=== PATIENT | male | born 1970 | race Asian ===

== ENCOUNTER 2020-08-12 15:49 | Inpatient (IN) | payer BC, SELFPAY ==
--- NOTE | ~2020-08-12 | XR_ITS ---
EXAMINATION: XR chest 1V portable EXAM DATE: 08/21/2020 06:11 INDICATION: COVID-19 pneumonia . TECHNIQUE: Portable AP frontal chest x-ray was obtained. Comparison is made to prior examination from 08/20, 08/19. FINDINGS: Extensive bilateral acute airspace disease, probably ARDS, edema and/or infection. No pneum othorax or pleural effusion. Mild cardiomegaly. Relatively low lung volume. There is no significant i nterval change. IMPRESSION: Extensive bilateral acute airspace disease unchanged. Reviewed, dictated and finalized at location A. CTOR OF STRATEGIC INITIATIVES
--- NOTE | ~2020-08-12 | XR_ITS ---
EXAMINATION: XR chest 1V portable EXAM DATE: 08/22/2020 06:35 INDICATION: COVID-19 pneumonia . TECHNIQUE: Portable AP frontal chest x-ray was obtained. Comparison is made to prior examination from 08/21, 08/20, 08/19. FINDINGS: Extensive bilateral acute airspace disease, probably ARDS, edema and/or infection. No pneum othorax or pleural effusion. Mild cardiomegaly. Relatively low lung volume. Comparing to last several days, suspect mild interval progression in the acute airspace disease. IMPRESSION: Extensive bilateral acute airspace disease with mild interval progression suspected. Reviewed, dictated and finalized at location A. MILL OPERATOR IMPRESSION: Extensive bilateral acute airspace disease with mild interval progr ession suspected.
--- NOTE | ~2020-08-12 | XR_ITS ---
EXAMINATION: XR chest 1V portable INDICATION: COVID 19 PNEUMONIA TECHNIQUE: Portable AP chest at 0703 hours COMPARISON: 08/22/2020 FINDINGS: Diffuse interstitial and airspace opacities persist with slight improvement. The lung volum es are low. There is no pleural effusion or pneumothorax. The cardiomediastinal silhouette is normal. IMPRESSION: 1. Diffuse lung disease with interval improvement, consistent with pneumonia and/or pulmonary edema a nd/or acute respiratory distress syndrome (ARDS). Reviewed, dictated and finalized at location A. H PACKER IMPRESSION: 1. Diffuse lung disease with interval improvement, consistent with pneumonia an d/or pulmonary edema and/or acute respiratory distress syndrome (ARDS).
--- NOTE | ~2020-08-12 | XR_ITS ---
EXAMINATION: XR chest 1V portable DATE: 08/12/2020 16:46 INDICATION: Shortness of breath and fever. TECHNIQUE: A single frontal view of the chest was obtained. COMPARISON: None. FINDINGS: There are patchy airspace opacities in all lung zones bilaterally. No pleural effusion or p neumothorax. The heart size is normal. IMPRESSION: 1. Diffuse lung disease, consistent with pneumonia. Reviewed, dictated and finalized at location A. L PRESS OPERATOR
--- NOTE | ~2020-08-12 | XR_ITS ---
EXAMINATION: XR chest 1V portable EXAM DATE: 08/19/2020 06:13 INDICATION: COVID-19 pneumonia . TECHNIQUE: Portable AP frontal chest x-ray was obtained. Comparison is made to prior examination from 08/18/2020, 08/17/2020. FINDINGS: Extensive bilateral acute airspace disease, probably ARDS, edema and/or infection. No pneum othorax or pleural effusion. Mild cardiomegaly. Relatively low lung volume. There is no significant i nterval change. IMPRESSION: 1. Extensive bilateral acute airspace disease unchanged. Reviewed, dictated and finalized at location A. GER REPORT
--- NOTE | ~2020-08-12 | XR_ITS ---
EXAMINATION: XR abdomen NG/feed tube insert DATE: 08/25/2020 12:10 INDICATION: Orogastric tube placement. TECHNIQUE: A supine view of the abdomen was obtained. COMPARISON: None. FINDINGS: The lower abdomen is excluded. There are no dilated loops of bowel. The nasogastric tube ti p is in the stomach. IMPRESSION: 1. Nasogastric tube tip in the stomach. Reviewed, dictated and finalized at location A. ABLE PINCH RIVETER
--- NOTE | ~2020-08-12 | XR_ITS ---
EXAMINATION: XR chest ET placement DATE: 08/25/2020 12:10 INDICATION: Intubation. COVID-19 pneumonia. TECHNIQUE: A single frontal view of the chest was obtained. COMPARISON: Chest single view at 5:06 AM FINDINGS: There are airspace and interstitial opacities throughout the lungs bilaterally. No pleural effusion or pneumothorax. The heart size is normal. The endotracheal tube tip is 3.0 cm above the car jennifer. A right upper extremity peripherally inserted central venous catheter (PICC) is seen with tip at the superior cavoatrial junction. The nasogastric tube tip is in the stomach. IMPRESSION: 1. Stable diffuse lung disease, consistent with pneumonia versus pulmonary edema versus acute respira tory distress syndrome (ARDS). Reviewed, dictated and finalized at location A. M MAKER IMPRESSION: 1. Stable diffuse lung disease, consistent with pneumonia versus pulmonary maxime a versus acute respiratory distress syndrome (ARDS).
--- NOTE | ~2020-08-12 | XR_ITS ---
EXAMINATION: XR chest 1V portable DATE: 08/27/2020 06:07 INDICATION: Respiratory failure. TECHNIQUE: A single frontal view of the chest was obtained. COMPARISON: Chest single view 08/26/2020 FINDINGS: There are interstitial airspace opacities throughout the lungs bilaterally. No pleural effu marcelino or pneumothorax. The heart size is normal. Pneumomediastinum is noted. The endotracheal tube tip is 3.6 cm above the jos. A right upper extremity peripherally inserted central venous catheter (P ICC) is seen with tip in the superior vena cava. The nasogastric tube tip is beyond the inferior navjot in of the radiograph, but at least to the stomach. There is new soft tissue gas in the bilateral ches t wall and neck. IMPRESSION: 1. New pneumomediastinum. New soft tissue gas in the bilateral chest wall and neck. 2. Stable diffuse lung disease, consistent with pneumonia versus pulmonary edema versus acute respira tory distress syndrome (ARDS). Reviewed, dictated and finalized at location A. MAINTENANCE TECHNICIAN IMPRESSION: 1. New pneumomediastinum. New soft tissue gas in the bilateral chest wall and n salty. 2. Stable diffuse lung disease, consistent with pneumonia versus pulmonary maxime a versus acute respiratory distress syndrome (ARDS).
--- NOTE | ~2020-08-12 | XR_ITS ---
EXAMINATION: XR chest 1V portable DATE: 08/17/2020 06:22 INDICATION: Respiratory failure. TECHNIQUE: A single frontal view of the chest was obtained. COMPARISON: Chest single view 08/16/2020, chest CT 08/14/2020 FINDINGS: There are airspace opacities in all lung zones bilaterally. No pleural effusion or pneumoth orax. The heart size is normal. IMPRESSION: 1. Worsened diffuse lung disease, consistent with pneumonia versus pulmonary edema versus acute respi ratory distress syndrome (ARDS). Reviewed, dictated and finalized at location A. RIALS AND CORROSION ENGINEER IMPRESSION: 1. Worsened diffuse lung disease, consistent with pneumonia versus pulmonary ed ana versus acute respiratory distress syndrome (ARDS).
--- NOTE | ~2020-08-12 | XR_ITS ---
EXAMINATION: XR chest 1V portable INDICATION: Shortness of breath TECHNIQUE: Portable AP chest at 0534 hours COMPARISON: 08/23/2020 FINDINGS: Diffuse opacities persist throughout all lung zones with slight worsening. There is no pleu ral effusion or pneumothorax. The cardiomediastinal silhouette is stable. The lung volumes are low. IMPRESSION: 1. Diffuse lung disease with interval worsening, consistent with pneumonia and/or pulmonary edema and /or acute respiratory distress syndrome (ARDS). Reviewed, dictated and finalized at location A. T CLERK IMPRESSION: 1. Diffuse lung disease with interval worsening, consistent with pneumonia and/ or pulmonary edema and/or acute respiratory distress syndrome (ARDS).
--- NOTE | ~2020-08-12 | XR_ITS ---
XR chest 1V portable DATE: 08/26/2020 11:06 INDICATION: Status change; increased oxygen requirements. Respiratory failure. TECHNIQUE: Portable AP chest on 08/26/2020 at 1026 hours COMPARISON: 08/26/2020 portable AP chest at 0446 hours FINDINGS: ET tube in satisfactory position approximately 3.8 cm above jos. NG tube in stomach. Right upper extremity PIC catheter tip overlies superior vena cava near superior cavoatrial junction. There are diffuse interstitial/ground glass infiltrates throughout both lungs, relatively unchanged s corona 0446 hours today. There may be slight right pleural effusion. No pneumothorax. IMPRESSION: No significant change of diffuse bilateral pulmonary interstitial infiltrates since earli er today Reviewed, dictated and finalized at location B. NIC SECTION TECHNICAL LEAD IMPRESSION: No significant change of diffuse bilateral pulmonary interstitial i nfiltrates since earlier today
--- NOTE | ~2020-08-12 | XR_ITS ---
EXAMINATION: XR chest 1V portable DATE: 08/26/2020 05:35 INDICATION: COVID-19 pneumonia. TECHNIQUE: A single frontal view of the chest was obtained. COMPARISON: Chest single view 08/25/2020 FINDINGS: The patient is rotated to his left. There are airspace and interstitial opacities throughou t the lungs bilaterally. No pleural effusion or pneumothorax. The heart size is normal. The endotrach eal tube tip is 3.7 cm above the jos. The nasogastric tube tip is in the stomach. A right upper ex tremity peripherally inserted central venous catheter (PICC) is seen with tip at superior cavoatrial junction. IMPRESSION: 1. Worsened diffuse lung disease, consistent with pneumonia versus pulmonary edema versus acute respi ratory distress syndrome (ARDS). Reviewed, dictated and finalized at location A. NEYMAN PIPEFITTER IMPRESSION: 1. Worsened diffuse lung disease, consistent with pneumonia versus pulmonary ed ana versus acute respiratory distress syndrome (ARDS).
--- NOTE | ~2020-08-12 | XR_ITS ---
EXAMINATION: XR chest PICC line INDICATION: PICC insertion TECHNIQUE: Portable AP chest at 1158 hours COMPARISON: 0534 hours FINDINGS: A right upper extremity PICC has been inserted which ends with its tip in the distal superi or vena cava. The guidewire remains within the pelvic. Diffuse opacities persist throughout all lung zones with slight interval improvement. The cardiomediastinal silhouette is stable. The lung volumes are low. There is no pleural effusion or pneumothorax. IMPRESSION: 1. Right upper extremity PICC ending with its tip in the distal superior vena cava. 2. Diffuse lung disease with interval improvement, consistent with pneumonia and/or pulmonary edema a nd/or acute respiratory distress syndrome (ARDS). Reviewed, dictated and finalized at location A. SHOP MANAGER IMPRESSION: 1. Right upper extremity PICC ending with its tip in the distal superior vena c gabby. 2. Diffuse lung disease with interval improvement, consistent with pneumonia an d/or pulmonary edema and/or acute respiratory distress syndrome (ARDS).
--- NOTE | ~2020-08-12 | XR_ITS ---
EXAMINATION: XR chest 1V portable DATE: 08/25/2020 05:37 INDICATION: COVID-19 pneumonia. TECHNIQUE: A single frontal view of the chest was obtained. COMPARISON: Chest single view 08/24/2020, chest CT 08/14/2020 FINDINGS: The lung volumes are small. There are interstitial and airspace opacities throughout the wilfredo ngs bilaterally. No pleural effusion or pneumothorax. The heart size is normal. A right upper extremi ty peripherally inserted central venous catheter (PICC) is seen with tip at the superior cavoatrial j unction. IMPRESSION: 1. Stable diffuse lung disease, consistent with pneumonia versus pulmonary edema versus acute respira tory distress syndrome (ARDS). Reviewed, dictated and finalized at location A. SUPERVISOR IMPRESSION: 1. Stable diffuse lung disease, consistent with pneumonia versus pulmonary maxime a versus acute respiratory distress syndrome (ARDS).
--- NOTE | ~2020-08-12 | XR_ITS ---
EXAMINATION: XR chest 1V portable EXAM DATE: 08/20/2020 06:23 INDICATION: COVID-19 pneumonia . TECHNIQUE: Portable AP frontal chest x-ray was obtained. Comparison is made to prior examination from 08/19, 08/18/2020, 08/17/2020. FINDINGS: Extensive bilateral acute airspace disease, probably ARDS, edema and/or infection. No pneum othorax or pleural effusion. Mild cardiomegaly. Relatively low lung volume. There is no significant i nterval change. IMPRESSION: Extensive bilateral acute airspace disease unchanged. Reviewed, dictated and finalized at location A. LE TOE SNIPPING MACHINE OPERATOR
--- NOTE | ~2020-08-12 | XR_ITS ---
EXAMINATION: XR chest 1V portable INDICATION: Respiratory failure TECHNIQUE: Portable AP chest at 0543 hours COMPARISON: 08/12/2020 FINDINGS: There are diffuse interstitial and airspace opacities with interval worsening. No pleural e ffusion or pneumothorax is identified. The cardiomediastinal silhouette is normal. IMPRESSION: 1. Diffuse lung disease with interval worsening, consistent with pneumonia and/or pulmonary edema and /or acute respiratory distress syndrome (ARDS). Reviewed, dictated and finalized at location A. ICER MACHINE IMPRESSION: 1. Diffuse lung disease with interval worsening, consistent with pneumonia and/ or pulmonary edema and/or acute respiratory distress syndrome (ARDS).
--- NOTE | ~2020-08-12 | CT_ITS ---
EXAMINATION: CTA chest PE protocol DATE: 08/14/2020 04:59 INDICATION: Shortness of breath TECHNIQUE: Computed tomography angiography (CTA) of the chest was performed with 100 mL Omnipaque-350 intravenous contrast timed to evaluate the pulmonary arteries. Coronal maximum intensity projection 3D-reconstructions were created by the technologist. The dose-length product (DLP) was 609.21 mGy-cm. Automated exposure control and iterative reconstruction technique were employed. COMPARISON: None. FINDINGS: The pulmonary arteries are well-opacified. No pulmonary embolism is identified. There are d iffuse groundglass and airspace opacities throughout all lung zones. No pleural effusion or pneumotho rax is identified. The heart size is normal. There is mild mediastinal lymphadenopathy. There is mild thoracic spondylosis. IMPRESSION: 1. No pulmonary embolism. 2. Commonly reported imaging features of COVID-19 pneumonia are present. 3. Mild mediastinal lymphade nopathy, likely reactive. Reviewed, dictated and finalized at location A. D BELT SANDER IMPRESSION: 1. No pulmonary embolism. 2. Commonly reported imaging features of COVID-19 pneumonia are present. 3. Mil d mediastinal lymphadenopathy, likely reactive.
--- NOTE | ~2020-08-12 | XR_ITS ---
EXAMINATION: XR chest 1V portable EXAM DATE: 08/18/2020 06:20 INDICATION: Resp Failure. TECHNIQUE: Portable AP frontal chest x-ray was obtained. Comparison is made to prior examination from 08/17/2020. FINDINGS: Extensive bilateral acute airspace disease, probably ARDS, edema and/or pneumonia. No pneum othorax or pleural effusion. Mild cardiomegaly. Relatively low lung volume. IMPRESSION: 1. Extensive bilateral acute airspace disease unchanged. Reviewed, dictated and finalized at location A. AL CONTROL AUGER PRESS OPERATOR
[2020-08-12 16:12] VITALS: BP 170/89; PULSE 93; RESP 22; TEMP 38.3; O2SAT 91
--- NOTE | 2020-08-12 16:12 | ECG_ITS ---
Measurements Intervals [place] Rate: 87 P: 41 TN: 145 QRS: 38 QRSD: 94 T: 12 QT: 257 QTc: 310 Interpretive Statements SINUS RHYTHM MINIMAL Q WAVES- INFERIOR LEADS NONSPECIFIC T-WAVE ABNORMALITY- INFERIOR LEADS BORDERLINE ECG Electronically Signed On 08-12-2020 16:28:15 SEASONAL [place] BUNDLER by José Hodge D.O.
--- NOTE | 2020-08-12 16:30 | ED.SOB ---
HPI - SOB/Dyspnea General Chief Complaint: Shortness of Breath/Dyspnea Stated Complaint: diff breathing, fever Time Seen by Provider: 08/12/20 16:20 Source: patient History of Present Illness HPI Narrative: 50-year-old presents to emergency department for multiple complaints for the last 4 to 5 days. Patient states he has been feeling short of breath, fever/chills, body aches, chest pain with coughing for this amount of time. He has never had this in the past before. No known exposure to coronavirus. He took some ibuprofen and Tylenol to help with the pain. Related Data Home Medications Medication Instructions Recorded Confirmed losartan 100 mg PO DAILY 08/12/20 08/12/20 Allergies Allergy/AdvReac Type Severity Reaction Status Date / Time No Known Allergies Allergy Verified 08/12/20 16:15 Review of Systems Review of Systems: Narrative: CONSTITUTIONAL: Denies fever, chills, or sweats. EYES: Denies visual changes, redness, or discharge. ENT: Denies rhinorrhea, congestion, sore throat, or otalgia. CARDIOVASCULAR: Denies chest pain, palpitations, or edema. RESPIRATORY: Denies cough or dyspnea. GASTROINTESTINAL: Denies abdominal pain, nausea, vomiting, or diarrhea. GENITOURINARY: Denies dysuria or hematuria. SKIN: Denies rash or itching. MUSCULOSKELETAL: Denies back pain, joint pain, or myalgia. NEUROLOGIC: Denies headache, numbness, dizziness, or weakness. PSYCHIATRIC: Denies anxiety or depression. All systems reviewed & are unremarkable except as noted in HPI and below (ROS) PMFSH Family History Family History (Updated 08/12/20 @ 20:31 by Clive Banks RN) Father Hypertension Social History Social History Smoking status: Never smoker Alcohol intake: never Substance use: never Gender identity (if verbalized by the patient): Male Spiritual care concerns: No Exam Narrative: Exam Narrative: GENERAL: Well-appearing, well-nourished, mild distress HEAD: Normocephalic, atraumatic. EYES: PERRLA and EOMI. ENT: Nares clear, no rhinorrhea or epistaxis. Mucous membranes moist. NECK: Supple. CHEST: Decreased breath sounds bilaterally. HEART: Regular rate and rhythm. No murmur heard. Normal peripheral pulses. ABDOMEN: Soft, nontender, nondistended, normal active bowel sounds. EXTREMITIES: Normal range of motion. No edema. SKIN: Warm, dry, no rash. NEURO: No focal deficits. Alert and oriented x3. PSYCH: Normal mood and affect. Course Reevaluation(s) Reevaluation #1: 1715 -reevaluated patient, breathing improved after oxygen administration. 1725 - discussed case with Hiliary PA, accepts admission Vital Signs Vital signs: Vital Signs Temperature 38.3 C H 08/12/20 16:12 Pulse Rate 93 08/12/20 16:12 Respiratory Rate 22 H 08/12/20 16:12 Blood Pressure 170/89 H 08/12/20 16:12 Pulse Oximetry 91 08/12/20 16:12 Temperature 38.3 C H 08/12/20 16:12 Pulse Rate 93 08/12/20 16:12 Respiratory Rate 22 H 08/12/20 16:12 Blood Pressure 170/89 H 08/12/20 16:12 Pulse Oximetry 91 08/12/20 16:12 MDM - SOB/Dyspnea Medical Records Attestation: I reviewed the patient's medical records. Lab Data Attestation: I reviewed the patient's lab results. Result diagrams: 08/12/20 16:41 08/12/20 16:41 Labs: Lab Results 08/12/20 08/12/20 08/12/20 Range/Units 16:40 16:40 16:40 WBC (4.5-10.0) K/mm3 RBC (4.6-6.20) M/mm3 Hgb (14.0-18.0) g/dL Hct (42.0-52.0) % MCV (80-100) fl MCH (26-34) pg MCHC (32-36) g/dl RDW (11.5-14.5) % Plt Count (150-375) k/mm3 MPV (7.4-10.4) fl Immature Gran % (Auto) (0-0.5) % Neut % (Auto) (45.5-73.1) % Lymph % (Auto) (18.3-44.2) % Clarke % (Auto) (2.6-8.5) % Eos % (Auto) (0-4.4) % Baso % (Auto) (0.2-1.2) % Lymph # (Auto) (0.9-3.2) K/mm3 Clarke # (Auto) (0.1-0.6) K/mm3 Eos # (Auto) (0-0.3) K/
[2020-08-12] MEDS: KETOROLAC 30 MG/ML VIAL (*BKC) IV PUSH (16:58)
[2020-08-12 17:01] LABS: Hematocrit 39.7 % (42.0-52.0); Hemoglobin 13.6 g/dL (14.0-18.0); Immature Granulocyte Absolute 0.02 K/mm3 (0.00-0.031); Immature Granulocyte Percent A 0.5 % (0-0.5); Lymphocytes Absolute Auto 0.79 K/mm3 (0.9-3.2); Lymphocytes Percent Auto 21.3 % (18.3-44.2); Mean Corpuscular HGB Conc 34.3 g/dl (32-36); Mean Corpuscular Volume 87.6 fl (80-100); Mean Platelet Volume 9.8 fl (7.4-10.4); Monocytes Absolute Auto 0.5 K/mm3 (0.1-0.6); Monocytes Percent Auto 12.1 % (2.6-8.5); Neutrophils Absolute Auto 2.5 K/mm3 (1.3-6.7); Neutrophils Percent Auto 66.1 % (45.5-73.1); Platelet Count Result 131 k/mm3 (150-375); Red Blood Count 4.53 M/mm3 (4.6-6.20); White Blood Count 3.7 K/mm3 (4.5-10.0)
[2020-08-12 17:05] LABS: Lactic Acid Reflex 1.3 mmol/L (0.7-2.1)
[2020-08-12 17:06] LABS: Anion Gap 8 mmol/L (8-16); Blood Urea Nitrogen 15 mg/dL (9-20); Carbon Dioxide 29 mmol/L (22-30); Chloride 96 mmol/L (98-107); Estimated CRCL calculation 91 ml/min; Estimated Glomerular Filt Rate > 60; Glucose 139 mg/dL (75-110); Potassium 3.8 mmol/L (3.4-5.0); Sodium 133 mmol/L (137-145)
[2020-08-12 17:09] LABS: CRP 4.9 mg/dL (<1.0); Lactate Dehydrogenase 827 U/L (313-618)
--- NOTE | 2020-08-12 19:28 | PC.NURSE ---
1927 - Report called to [facility].
--- NOTE | 2020-08-12 20:03 | PC.NURSE ---
Report called to Melani. BLS transport requested but no ETA given at this time. Patient updated and provided with box lunch and sprite.
[2020-08-12 20:13] VITALS: O2SAT 95
[2020-08-12 20:14] VITALS: BP 123/77; PULSE 74; RESP 20; TEMP 37.3; O2SAT 98; BMI 32.1
--- NOTE | 2020-08-12 20:24 | PM.IMHP ---
H&P: HPI History of Present Illness Date/Time: 08/12/20 20:24 Chief complaint: Suspected COVID 19 Narrative: Immanuel Tay is a 50 year old male past medical history of hypertension and obesity BMI 30.9 presents to the ED with complaints of dyspnea. Symptom onset was 5 days ago with dyspnea, fever, chills, body aches, chest pain with dry cough. patient took [id number] pain medication to no avail. His son was tested 7 days ago for COVID-19 and was negative. patient works in a [employer] however since COVID 19 he is unemployed. He does leave the house for groceries and states he washed his hands regularly, uses hand vise hand, and face mask. He lives with his and son and neither of them have symptoms. Patient last saw his PCP 6 months ago through video visit. In the ED: COVID-19 pending however there is high suspicion, flu negative, elevated CRP/LDH/ ferritin. EKG shows normal sinus rhythm rate 87, normal intervals. WBCs 3.7. patient admitted for observation COVID-19 and hypoxia. Review of Systems Review of Systems: Narrative: Constitutional: Patient endorses fever, chills, body aches ENT/Mouth: No Hearing Changes, No Ear Pain, No Nasal Congestion, No Sinus Pain, No Hoarseness, No sore throat, No Rhinorrhea, No Swallowing Difficulty Eyes: No Eye Pain, No Redness, No Vision Changes Cardiovascular: No Chest Pain, No Palpitations, No Dyspnea on Exertion, No Orthopnea, No Claudication, No Edema Respiratory: endorses shortness of breath, dry cough. Denies wheezing. Gastrointestinal: No Nausea, No Vomiting, No Diarrhea, No Constipation, No Abdominal Pain, No Heartburn, No Hematochezia, No Melena Genitourinary: No Dysuria, No Urinary Frequency, No Hematuria, No Urinary Incontinence, No Urgency Musculoskeletal: No Arthralgias, No Myalgias, No Joint Swelling, No Joint Stiffness, No Back Pain Skin: No Skin Lesions, No Pruritis, No Hair Changes Neuro: No Weakness, No Numbness, No Paresthesias, No Loss of Consciousness, No Syncope, No Dizziness, No Headache Psych: No Anxiety/Panic, No Depression, No Insomnia Heme: No Bruising, No Bleeding Lymph: No Adenopathy Endocrine: No Polyuria, No Polydipsia, No Temperature Intolerance [facility] Past Medical History Medical History (Updated 08/12/20 @ 22:09 by Greg Cisse DO) Hypertension Obesity (BMI 30.0-34.9) Family History Family History (Updated 08/12/20 @ 21:40 by Greg Cisse DO) Father Hypertension Mother Hypertension Social History Social History (Updated 08/12/20 @ 21:41 by Greg Cisse DO) Smoking status: Former smoker Alcohol intake: current Alcohol use details: Very occasional beer Substance use: never Living arrangements: with family Additional living arrangements comments: and son Occupation/Education: occupation Additional occupation/education comments: [employer] Gender identity (if verbalized by the patient): Male Spiritual care concerns: No Meds Home Medications and Allergies Home Medications Medication Instructions Recorded Confirmed Type losartan 100 mg PO DAILY 08/12/20 08/12/20 History Allergies Allergy/AdvReac Type Severity Reaction Status Date / Time No Known Allergies Allergy Verified 08/12/20 16:15 Vital Signs Vital Signs - 24 hr 08/12/20 16:12 Temperature 38.3 C H Pulse Rate 93 Respiratory Rate 22 H Blood Pressure 170/89 H Pulse Oximetry 91 Exam Narrative: Exam Narrative: - GENERAL: pleasant male in no acute distress breathing comfortably on 2 L nasal cannula - EYES: EOMI. Anicteric. - HENT: Moist mucous membranes. No scleral icterus. - LUNGS: coarse lung sounds throughout, diminished at bases. - CARDIOVASCULAR: Regular rate and rhythm. No murmur. No JVD. - ABDOMEN: Soft, non-tender and non-distended. No palpable masses. - EXTREMITIES: No edema. Peripheral pulses 2+. Non-tender. - NEUROLOGIC: No focal neurological deficits. CN II-XII grossly intact.
--- NOTE | 2020-08-12 20:28 | ADMGEN ---
This patient, Immanuel Tay, was admitted to [facility] Surg Room 321-01. Patient/family oriented to hospital policies and general routines including ID bracelet, bed and alarms, visiting hours, pain management, procedures, bathroom and other care routines, personal items, smoking policy, room service/diet, and visiting hours. Information on how to activate the Rapid Response Team has been discussed. Patient/Family are encouraged to report perceived risks to care and to ask questions if they do not understand what they are told or what they should do.
[2020-08-12] MEDS: DEXAMETHASONE SOD PHOS INJ 4 MG/ML VIAL 6 MG IV PUSH (23:09)
[2020-08-13] VITALS (11 sets, daily range): BP systolic 101–139; BP diastolic 61–75; PULSE 71–95; RESP 16–24; TEMP 36.9–37.3; O2SAT 87–94
[2020-08-13 06:28] LABS: Hemoglobin 13.3 g/dL (14.0-18.0); Mean Corpuscular HGB Conc 34.1 g/dl (32-36); Mean Corpuscular Hemoglobin 29.8 pg (26-34); Mean Corpuscular Volume 87.2 fl (80-100); Mean Platelet Volume 9.3 fl (7.4-10.4); Platelet Count Result 135 k/mm3 (150-375); Red Blood Count 4.47 M/mm3 (4.6-6.20); Red Cell Distribution Width 10.7 % (11.5-14.5)
[2020-08-13 06:42] LABS: Anion Gap 9 mmol/L (8-16); Blood Urea Nitrogen 18 mg/dL (9-20); Calcium 8.9 mg/dL (8.4-10.2); Carbon Dioxide 30 mmol/L (22-30); Chloride 97 mmol/L (98-107); Estimated CRCL calculation 83 ml/min; Estimated Glomerular Filt Rate > 60; Glucose 167 mg/dL (75-110); Potassium 4.2 mmol/L (3.4-5.0); Sodium 136 mmol/L (137-145)
[2020-08-13] MEDS: FAMOTIDINE 20 MG TABLET PO ×2 (09:13→21:26)
[2020-08-13] MEDS: ZINC SULFATE 220 MG CAPSULE PO (09:13)
[2020-08-13] MEDS: CHOLECALCIFEROL 1,000 UNITS TABLET 1000 UNITS PO (09:13)
[2020-08-13] MEDS: DEXAMETHASONE 2 MG TABLET 6 MG PO (09:13)
[2020-08-13] MEDS: ENOXAPARIN 40 MG/0.4 ML SYRINGE SUB-Q ×2 (09:13→21:26)
[2020-08-13] MEDS: LOSARTAN POTASSIUM 100 MG TABLET PO (09:13)
[2020-08-13] MEDS: ASCORBIC ACID 500 MG TABLET PO (09:13)
[2020-08-13] MEDS: ALBUTEROL SULFATE (*SP) AEROSOL 1 PUFF 2 PUFF INHALATION ×2 (10:08→15:46)
--- NOTE | 2020-08-13 16:04 | PM.IMPN ---
Progress Note: A&P Assessment and Plan (1) Suspected 2019-nCoV infection: Code(s): Z20.828 - Contact with and (suspected) exposure to other viral communicable diseases Status: Acute Assessment and Plan: High suspicion COVID-19;testing pending. CXR with diffuse infiltrates consistent with COVID-19; other pneumonia such as bacterial possible, but less likely at this point. Inflammatory markers elevated. Patient states he feels somewhat better today; he has been weaned to 1L NC, but still satting low 90s. Dexamethasone initiated on 08/12, anticipate continuing to complete at least 5 days COVID testing pending and due to result tonight; if positive, will plan on initiating remdesivir Continue supportive care of Tylenol PRN for fevers, Mucinex prn for cough, zinc, vitamin c and d Continue IS Wean O2 as tolerated Encouraged ambulation if tolerated (2) Acute respiratory failure due to COVID-19: Code(s): U07.1 - COVID-19; J96.00 - Acute respiratory failure, unspecified whether with hypoxia or hypercapnia Status: Acute Assessment and Plan: ARF with hypoxia likely due to COVID19; pending results as above See above a/p (3) Hypertension: Qualifiers: Hypertension type: essential hypertension Qualified Code(s): I10 - Essential (primary) hypertension Code(s): I10 - Essential (primary) hypertension Status: Acute Assessment and Plan: BP 110s sys this afternoon. Continue home medications Monitor Subjective Date/time seen: 08/13/20 16:04 Interval history: Patient is a 50 yo M with history of HTN and obesity who is seen in follow up with suspected COVID 19 infection/PNA and acute respiratory failure with hypoxia likely due to same. Patient states he feels better today. Still having cough, shortness of breath, but improved. Coughs up occasional brown sputum, but otherwise cough is dry. Gets pain in chest with coughing or with deep inspiration. Occasional mild headache. No other complaints at the moment. Denies subjective f/c/s, confusion, dizziness, lightheadedness, palpitations, n/v/d/c, abd pain, changes in BMs, dysuria, hematuria, cloudy urine, calf pain/swelling. Review of Systems Review of Systems: All systems reviewed & are unremarkable except as noted in HPI and below Exam Narrative: Exam Narrative: General: Patient resting supine in bed in no acute distress. Appears slightly anxious. HEENT: Normocephalic, EOMI, oral mucosa moist. Cardiovascular: Rate and rhythm are regular. No notable murmur, rub, or gallop. Respiratory: coarse BS noted diffusely. Non-labored breathing. On 1L NC, satting 92% at time of visit Abdomen: Soft, non-tender, non-distended, bowel sounds present. Skin: Warm and slightly diaphoretic to touch Extremities: Peripheral pulses intact. No edema. Neuro: No focal neurological deficits. Speech is clear. Objective Data Vital Signs Vital Signs: Last Vital Signs Temp 98.6 F 08/13/20 12:00 Pulse 72 08/13/20 12:00 Resp 18 08/13/20 12:00 BP 114/72 08/13/20 12:00 Pulse Ox 92 08/13/20 12:00 Intake/Output Intake/Output: Intake & Output 08/10/20 08/11/20 08/12/20 08/13/20 23:59 23:59 23:59 23:59 Intake Total 1100 Balance 1100 Meds/Results Medications: Active Medications Generic Name Dose Route Start Last Admin Trade Name Freq PRN Reason Stop Dose Admin Acetaminophen 650 mg 08/12/20 22:13 Acetaminophen 325 Mg Tablet PO Q4H PRN Mild Pain (1-3) or Fever Albuterol 2 puff 08/13/20 08:00 08/13/20 15:46 Albuterol Sulfate (*Sp) Aerosol 1 Puff INHALATION 2 puff QIDRT IMANI Administration Ascorbic Acid 500 mg 08/13/20 09:00 08/13/20 09:13 Ascorbic Acid 500 Mg Tablet PO 500 mg DAILY IMANI Administration Dexamethasone 6 mg 08/13/20 08:00 08/13/20 09:13 De
--- NOTE | 2020-08-13 17:04 | PC.NURSE ---
increased o2 flow from 1LPM to 2LPM. SPo2 changed from 90 to 94. Pt changed positions too. He is now sitting up in bed. I rechecked him he says he now feels somewhat better so I will leave his O2 at 2LPM for now and will continue to monitor.
[2020-08-13 18:20] LABS: SARS-CoV-2 RNA PCR Positive
--- NOTE | 2020-08-13 18:52 | PC.NURSE ---
Notified Dr Leiva of positive covid results. New orders to start Remdesivir were received.
[2020-08-13 19:31] LABS: Alanine Aminotransferase 28 U/L (4-50)
[2020-08-13] MEDS: ALBUTEROL SULFATE (*SP) INHALER 1 PUFF (20:48)
[2020-08-13] MEDS: REMDESIVIR 200 MG/NS 250 ML 200 MG/250 ML BAG 250 MG IVPB (21:26)
[2020-08-13] MEDS: guaiFENesin 12 HR 600 MG TABCR 1200 MG PO (21:26)
[2020-08-14] VITALS (27 sets, daily range): BP systolic 103–149; BP diastolic 59–85; PULSE 62–82; RESP 16–42; TEMP 36.4–37.1; O2SAT 81–94
[2020-08-14] MEDS: DEXTROMETHORPHAN POLISTIREX 60 MG/10 ML SYRINGE PO (06:09)
[2020-08-14 06:47] LABS: Hematocrit 38.3 % (42.0-52.0); Hemoglobin 12.8 g/dL (14.0-18.0); Immature Granulocyte Absolute 0.04 K/mm3 (0.00-0.031); Immature Granulocyte Percent A 0.6 % (0-0.5); Lymphocytes Absolute Auto 0.42 K/mm3 (0.9-3.2); Lymphocytes Percent Auto 5.8 % (18.3-44.2); Mean Corpuscular HGB Conc 33.4 g/dl (32-36); Mean Corpuscular Hemoglobin 29.5 pg (26-34); Mean Corpuscular Volume 88.2 fl (80-100); Mean Platelet Volume 9.7 fl (7.4-10.4); Monocytes Absolute Auto 0.8 K/mm3 (0.1-0.6); Monocytes Percent Auto 10.9 % (2.6-8.5); Neutrophils Absolute Auto 5.9 K/mm3 (1.3-6.7); Neutrophils Percent Auto 82.7 % (45.5-73.1); Platelet Count Result 147 k/mm3 (150-375); Red Blood Count 4.34 M/mm3 (4.6-6.20); Red Cell Distribution Width 10.7 % (11.5-14.5); White Blood Count 7.2 K/mm3 (4.5-10.0)
[2020-08-14 07:03] LABS: Alanine Aminotransferase 29 U/L (4-50); Albumin Level 3.6 g/dL (3.5-5.1); Alkaline Phosphatase 59 U/L (38-126); Anion Gap 9 mmol/L (8-16); Aspartate Amino Transferase 49 U/L (17-59); Bilirubin,Total 0.7 mg/dL (0.2-1.3); Blood Urea Nitrogen 19 mg/dL (9-20); Calcium 9.1 mg/dL (8.4-10.2); Carbon Dioxide 30 mmol/L (22-30); Chloride 98 mmol/L (98-107); Estimated CRCL calculation 83 ml/min; Estimated Glomerular Filt Rate > 60; Glucose 142 mg/dL (75-110); Magnesium 1.9 mg/dL (1.6-2.3); Potassium 4.1 mmol/L (3.4-5.0); Sodium 137 mmol/L (137-145)
[2020-08-14] MEDS: DEXAMETHASONE 2 MG TABLET 6 MG PO (08:05)
[2020-08-14] MEDS: ASCORBIC ACID 500 MG TABLET PO (08:05)
[2020-08-14] MEDS: ENOXAPARIN 40 MG/0.4 ML SYRINGE SUB-Q ×2 (08:05→19:46)
[2020-08-14] MEDS: guaiFENesin 12 HR 600 MG TABCR 1200 MG PO ×2 (08:05→19:46)
[2020-08-14] MEDS: ZINC SULFATE 220 MG CAPSULE PO (08:05)
[2020-08-14] MEDS: CHOLECALCIFEROL 1,000 UNITS TABLET 1000 UNITS PO (08:06)
[2020-08-14] MEDS: FAMOTIDINE 20 MG TABLET PO ×2 (08:07→19:46)
[2020-08-14] MEDS: ALBUTEROL SULFATE (*SP) AEROSOL 1 PUFF 2 PUFF INHALATION ×4 (08:35→19:22)
--- NOTE | 2020-08-14 09:22 | PM.IMPN ---
Progress Note: A&P Assessment and Plan (1) Pneumonia due to COVID-19 virus: Code(s): U07.1 - COVID-19; J12.89 - Other viral pneumonia Status: Acute Assessment and Plan: Positive covid testing yesterday. Had a difficult night overnight. CTA performed due to increased oxygen demands/increased dyspnea; no PE identified, findings consistent with COVID pneumonia noted. Inflammatory markers elevated. Remdesivir initiated yesterday evening. Now on 10 L HFNC satting upper 80s. We discussed possibility of transferring to IMU/ICU if no improvement/worsening condition today. Dexamethasone initiated on 08/12, anticipate continuing to complete at least 5 days, possibly longer. (day 12/12) Remdesivir initiated on 08/13; will continue this evening (day 11/14) Continue supportive care of Tylenol PRN for fevers, Mucinex prn for cough, zinc, vitamin c and d Continue IS Wean O2 as tolerated Continuous pulse ox Repeat inflammatory markers today Will consider transfer to ICU/IMU if no improvement/worsened condition (2) Acute respiratory failure due to COVID-19: Code(s): U07.1 - COVID-19; J96.00 - Acute respiratory failure, unspecified whether with hypoxia or hypercapnia Status: Acute Assessment and Plan: ARF with hypoxia likely due to COVID19. On 10 L HFNC. CTA negative for PE. See above a/p (3) Hypertension: Qualifiers: Hypertension type: essential hypertension Qualified Code(s): I10 - Essential (primary) hypertension Code(s): I10 - Essential (primary) hypertension Status: Acute Assessment and Plan: BP 100s sys this morning Continue home medications Monitor (4) Hyperglycemia: Code(s): R73.9 - Hyperglycemia, unspecified Status: Acute Assessment and Plan: Patient serum fasting glucose has been elevated the past 2 days. Patient denies diagnosis of diabetes Will order A1c today Monitor Consider Accuchecks ACHS, correctional insulin, diabetic diet if found to be diabetic Subjective Date/time seen: 08/14/20 09:22 Interval history: Patient is a 50 yo M with history of HTN and obesity who is seen in follow up with suspected COVID 19 infection/PNA and acute respiratory failure with hypoxia likely due to same. Patient states he had a bad night, feeling very short of breath; he was subsequently placed on 10L HFNC due to desaturation, now satting upper 80s currently. He feels better this morning since last night. Still has cough; reports mild hemoptysis. He has chest pain with deep inspiration. Occasional headache. Denies subjective fevers/chills. No other complaints at the moment. Denies confusion, dizziness, lightheadedness, palpitations, n/v/d/c, abd pain, changes in BMs, dysuria, hematuria, cloudy urine, calf pain/swelling. Review of Systems Review of Systems: All systems reviewed & are unremarkable except as noted in HPI and below Exam Narrative: Exam Narrative: General: Patient resting supine in bed, acutely ill appearing, appears slightly anxious. HEENT: Normocephalic, EOMI, oral mucosa moist. Cardiovascular: Rate and rhythm are regular. No notable murmur, rub, or gallop. Respiratory: coarse BS noted diffusely. Tachypneic, speaks in long sentences. Non-labored breathing. On 10L HFNC, satting upper 80s at time of visit Abdomen: Soft, non-tender, non-distended, bowel sounds present. Skin: Warm and slightly diaphoretic to touch Extremities: Peripheral pulses intact. No edema. Neuro: No focal neurological deficits. Speech is clear. Objective Data Vital Signs Vital Signs: Last Vital Signs Temp 98.3 F 08/14/20 08:00 Pulse 67 08/14/20 08:00 Resp 26 H 08/14/20 08:00 BP 103/59 L 08/14/20 08:00 Pulse Ox 91 08/14/20 08:36 Intake/Output Intake/Output: Intake & Output 08/11/2008/12
[2020-08-14 10:43] LABS: CRP 2.2 mg/dL (<1.0); Lactate Dehydrogenase 1197 U/L (313-618)
[2020-08-14 10:58] LABS: Hemoglobin A1C 4.7 % (<5.7)
[2020-08-14] MEDS: ACETAMINOPHEN 325 MG TABLET 650 MG PO (11:12)
[2020-08-14] MEDS: SODIUM CHLORIDE 0.9% IV 250 ML 30 ML IV CONT (13:23)
--- NOTE | 2020-08-14 16:10 | PC.NURSE ---
This patient, Immanuel Tay, was transferred to ICU 1 on 08/14/20 at 1610. Personal belongings sent with patient. Report given to Claudia GRAHAM. Appropriate documentation sent with patient.
--- NOTE | 2020-08-14 16:39 | PC.NURSE ---
This patient, Immanuel Tay, was received from [[id number]] on 08/14/20 at [id number]. Patient/family oriented to unit policies and routines Report received from GLADYS Land @ [phone]
[2020-08-14] MEDS: REMDESIVIR 100 MG/NS 250 ML 100 MG/250 ML BAG 250 MG IVPB (18:41)
[2020-08-15] VITALS (17 sets, daily range): BP systolic 102–157; BP diastolic 69–88; PULSE 50–75; RESP 18–36; TEMP 36.6–37; O2SAT 84–98
[2020-08-15 05:34] LABS: Basophils Percent Auto 0.1 % (0.2-1.2); Hematocrit 35.8 % (42.0-52.0); Immature Granulocyte Absolute 0.05 K/mm3 (0.00-0.031); Immature Granulocyte Percent A 0.6 % (0-0.5); Lymphocytes Absolute Auto 0.66 K/mm3 (0.9-3.2); Lymphocytes Percent Auto 7.7 % (18.3-44.2); Mean Corpuscular HGB Conc 33.5 g/dl (32-36); Mean Corpuscular Hemoglobin 29.6 pg (26-34); Mean Corpuscular Volume 88.4 fl (80-100); Mean Platelet Volume 10.6 fl (7.4-10.4); Monocytes Percent Auto 11.7 % (2.6-8.5); Neutrophils Absolute Auto 6.8 K/mm3 (1.3-6.7); Neutrophils Percent Auto 79.9 % (45.5-73.1); Platelet Count Result 156 k/mm3 (150-375); Red Blood Count 4.05 M/mm3 (4.6-6.20); Red Cell Distribution Width 10.7 % (11.5-14.5); White Blood Count 8.6 K/mm3 (4.5-10.0)
[2020-08-15 05:35] LABS: D Dimer 0.29 ug/mL (<0.48)
[2020-08-15 06:49] LABS: Alanine Aminotransferase 31 U/L (4-50); Albumin Level 3.2 g/dL (3.5-5.1); Alkaline Phosphatase 55 U/L (38-126); Anion Gap 5 mmol/L (8-16); Aspartate Amino Transferase 61 U/L (17-59); Bilirubin,Total 0.7 mg/dL (0.2-1.3); Blood Urea Nitrogen 26 mg/dL (9-20); CRP 3.4 mg/dL (<1.0); Calcium 8.6 mg/dL (8.4-10.2); Carbon Dioxide 34 mmol/L (22-30); Chloride 98 mmol/L (98-107); Estimated CRCL calculation 92 ml/min; Estimated Glomerular Filt Rate > 60; Glucose 119 mg/dL (75-110); Lactate Dehydrogenase 1640 U/L (313-618); Potassium 4.4 mmol/L (3.4-5.0); Sodium 137 mmol/L (137-145)
[2020-08-15] MEDS: ALBUTEROL SULFATE (*SP) AEROSOL 1 PUFF 2 PUFF INHALATION ×4 (07:35→21:04)
[2020-08-15] MEDS: ASCORBIC ACID 500 MG TABLET PO (08:05)
[2020-08-15] MEDS: guaiFENesin 12 HR 600 MG TABCR 1200 MG PO ×2 (08:05→19:51)
[2020-08-15] MEDS: LOSARTAN POTASSIUM 100 MG TABLET PO (08:05)
[2020-08-15] MEDS: FAMOTIDINE 20 MG TABLET PO ×2 (08:05→19:51)
[2020-08-15] MEDS: DEXAMETHASONE 2 MG TABLET 6 MG PO (08:05)
[2020-08-15] MEDS: ENOXAPARIN 40 MG/0.4 ML SYRINGE SUB-Q ×2 (08:06→19:52)
[2020-08-15] MEDS: ZINC SULFATE 220 MG CAPSULE PO (08:06)
[2020-08-15] MEDS: CHOLECALCIFEROL 1,000 UNITS TABLET 1000 UNITS PO (08:06)
--- NOTE | 2020-08-15 08:17 | WPDCNINT ---
Assessment and Plan Assessment and plan (1) Acute respiratory failure due to COVID-19: Code(s): U07.1 - COVID-19; J96.00 - Acute respiratory failure, unspecified whether with hypoxia or hypercapnia Status: Acute Assessment and Plan: Acute Respiratory failure secondary to COVID-19 pneumonia CTA negative for PE. currently on high-flow nasal cannula with 60 L flow and 85% FiO2 along with supplemental non-rebreather mask not in any respiratory distress but hypoxia a severe and if further worsens will need intubation and mechanical ventilation. patient agreeable for intubation if needed I encouraged patient to try laying in prone position change diet to clear liquids at this time SARS-CoV-2 PCR positive 08/12 Patient is in Airborne, Droplet and Contact Isolation Dexamethasone initiated on 08/12 Remdesivir initiated on 08/13 Received 1 unit of convalescent plasma 08/14 monitor inflammatory markers albuterol, p.r.n. dextromethorphan patient is also on vitamin C zinc and vitamin-D (2) Pneumonia due to COVID-19 virus: Code(s): U07.1 - COVID-19; J12.89 - Other viral pneumonia Status: Acute Assessment and Plan: see above (3) Hypertension: Qualifiers: Hypertension type: essential hypertension Qualified Code(s): I10 - Essential (primary) hypertension Code(s): I10 - Essential (primary) hypertension Status: Acute Assessment and Plan: controlled on p.o. losartan (4) Hyperglycemia: Code(s): R73.9 - Hyperglycemia, unspecified Status: Acute Assessment and Plan: clear liquid diet SSI Additional Plan Diet: clear liquid diet SUP- Pepcid DVT prophylaxis: Lovenox 40 mg b.i.d. for COVID-19 Code status: Full code Total Critical Care Time - 32 minutes Due to a high probability of clinically significant, life threatening deterioration, the patient required my highest level of preparedness to intervene emergently and I personally spent this critical care time directly and personally managing the patient. This critical care time included obtaining a history; examining the patient; pulse oximetry; ordering and review of studies; arranging urgent treatment with development of a management plan; evaluation of patient's response to treatment; frequent reassessment; and discussions with other providers. It was exclusive of separately billable procedures and treating other patients and teaching time. Please see Assessment and Plan section and the rest of the note for further information on patient assessment and treatment Bell Attendant Consult Note Consult date: 08/15/20 Time Seen: 08:00 HPI: Immanuel Tay is a 50 year old male with past medical history of hypertension and obesity BMI 30.9 presents to the ED with complaints of dyspnea on 08/12. Symptom onset was 5 days prior to presentation with dyspnea, fever, chills, body aches, chest pain with dry cough and sore throat. Patient took [id number] pain medication to no avail. Patient worked in a [employer] however since COVID 19 he is unemployed. on presentation COVID-[address] was negative for PE. next day COVID-19 PCR came back positive. Patient was started on dexamethasone and Remdesivir. over the hospital course his hypoxia worsened and patient was needing AirVo along with a non-rebreather mask. She was transferred to ICU today for further evaluation and management and closer monitor. At this time patient states that he does feel short of breath, dry cough and sore throat. He states that his sensation of taste and smell is preserved. Denies any fever chills or body aches at this time Limited review of system was obtained as patient was hypoxic and his sats drop whenever he says talked and took off his non-rebreather mask. Patient denies fever, chest pain, nausea vomiting, abdominal pain,, diarrhea, headache or constipation. Review of Systems Review of Systems: All systems review
[2020-08-15] MEDS: FUROSEMIDE INJ 40 MG/4 ML VIAL 20 MG IV PUSH (10:24)
[2020-08-15 12:51] LABS: Glucose Point of Care 155 (65-105)
--- NOTE | 2020-08-15 16:11 | PM.IMPN ---
Progress Note: A&P Assessment and Plan (1) Pneumonia due to COVID-19 virus: Code(s): U07.1 - COVID-19; J12.89 - Other viral pneumonia Status: Acute Assessment and Plan: Positive covid .. CTA performed due to increased oxygen demands/increased dyspnea; no PE identified, findings consistent with COVID pneumonia noted. Inflammatory markers elevated. Remdesivir initiated 08/13. . transferred to ICU 08/14 pm Dexamethasone initiated on 08/12, . (day 01/17) Remdesivir initiated on 08/13; will continue this evening (day 12/12) convalescent plasma given 08/14 Continue supportive care of Tylenol PRN for fevers, Mucinex prn for cough, zinc, vitamin c and d Continue IS Wean O2 as tolerated Continuous pulse ox (2) Acute respiratory failure due to COVID-19: Code(s): U07.1 - COVID-19; J96.00 - Acute respiratory failure, unspecified whether with hypoxia or hypercapnia Status: Acute Assessment and Plan: ARF with hypoxia likely due to COVID19. Airvo 60 liters/minute and FiO2 of 85. CTA negative for PE. See above a/p (3) Hypertension: Qualifiers: Hypertension type: essential hypertension Qualified Code(s): I10 - Essential (primary) hypertension Code(s): I10 - Essential (primary) hypertension Status: Acute Assessment and Plan: BP 100s sys this morning Continue home medications, losartan daily Monitor (4) Hyperglycemia: Code(s): R73.9 - Hyperglycemia, unspecified Status: Acute Assessment and Plan: Patient serum fasting glucose has been elevated with dexamethasone. Patient denies diagnosis of diabetes A1c only 4.7 Monitor (5) DVT prophylaxis: Code(s): Z29.9 - Encounter for prophylactic measures, unspecified Status: Acute Assessment and Plan: for b.i.d. Adiel with his body habitus and diagnosis of COVID Subjective Date/time seen: 08/15/20 16:11 Interval history: Date of visit 08/15. Patient is a 50 yo M with history of HTN and obesity who is seen in follow up for COVID 19 infection/PNA and acute respiratory failure with hypoxia . He feels better this morning since last night with high-flow nasal cannula Airvo. Still has cough but less; . He has chest pain with deep inspiration. Occasional headache. Denies subjective fevers/chills. No other complaints at the moment. Exam Narrative: Exam Narrative: blood pressure 132/74 pulse 66 sat 93% on 60 L and 85% FiO2 General: Patient resting supine in bed, respiratory rate slightly increased but even. HEENT: Normocephalic, EOMI, Cardiovascular: Rate and rhythm are regular. No notable murmur, rub, or gallop. Respiratory: coarse BS noted diffusely. crackles in the bases. Non-labored breathing. Abdomen: Soft, non-tender, non-distended, bowel sounds present. Skin: Warm and slightly diaphoretic to touch Extremities: Peripheral pulses intact. No edema. Neuro: No focal neurological deficits. Speech is clear. Objective Data Vital Signs Vital Signs: Vital Signs - 24 hr 08/14/20 16:24 08/14/20 16:25 08/14/20 18:00 Temperature 37.1 C Pulse Rate 74 75 68 Respiratory Rate 25 H Blood Pressure 130/85 Pulse Oximetry 88 L 92 08/14/20 19:16 08/14/20 19:24 08/14/20 19:36 Temperature Pulse Rate 69 72 80 Respiratory Rate 36 H 30 H 32 H Blood Pressure Pulse Oximetry 81 L 91 08/14/20 20:00 08/14/20 22:00 08/14/20 23:21 Temperature 36.9 C Pulse Rate 75 62 72 Respiratory Rate 33 H 20 Blood Pressure 126/69 Pulse Oximetry 93 92 08/15/20 00:00 08/15/20 01:59 08/15/20 03:20 Temperature 36.9 C Pulse Rate 58 L 60 56 L Respiratory Rate 26 H 24 H Blood Pressure 116/73 Pulse Oximetry 91 90 08/15/20 04:00 08/15/20 06:00 08/15/20 07:35 Temperature 36.6 C Pulse Rate 66 50 L 68 Respiratory
[2020-08-15 17:22] LABS: Glucose Point of Care 143 (65-105)
[2020-08-15] MEDS: REMDESIVIR 100 MG/NS 250 ML 100 MG/250 ML BAG 250 MG IVPB (18:35)
[2020-08-15 19:05] LABS: Procalcitonin 0.12 ng/mL (<0.10)
[2020-08-15 21:59] LABS: Glucose Point of Care 194 (65-105)
[2020-08-16] VITALS (17 sets, daily range): BP systolic 99–130; BP diastolic 66–82; PULSE 22–62; RESP 15–27; TEMP 36.7–37.1; O2SAT 87–100
[2020-08-16 06:13] LABS: Hematocrit 39.3 % (42.0-52.0); Hemoglobin 13.4 g/dL (14.0-18.0); Mean Corpuscular HGB Conc 34.1 g/dl (32-36); Mean Corpuscular Hemoglobin 30.3 pg (26-34); Mean Corpuscular Volume 88.9 fl (80-100); Mean Platelet Volume 9.9 fl (7.4-10.4); Platelet Count Result 204 k/mm3 (150-375); Red Blood Count 4.42 M/mm3 (4.6-6.20); Red Cell Distribution Width 10.9 % (11.5-14.5); White Blood Count 9.4 K/mm3 (4.5-10.0)
[2020-08-16 06:34] LABS: Alanine Aminotransferase 32 U/L (4-50); Albumin Level 3.5 g/dL (3.5-5.1); Alkaline Phosphatase 74 U/L (38-126); Anion Gap 7 mmol/L (8-16); Aspartate Amino Transferase 50 U/L (17-59); Bilirubin,Total 0.9 mg/dL (0.2-1.3); Blood Urea Nitrogen 25 mg/dL (9-20); Calcium 8.8 mg/dL (8.4-10.2); Carbon Dioxide 35 mmol/L (22-30); Chloride 96 mmol/L (98-107); Estimated CRCL calculation 92 ml/min; Estimated Glomerular Filt Rate > 60; Glucose 113 mg/dL (75-110); Magnesium 2.1 mg/dL (1.6-2.3); Potassium 3.9 mmol/L (3.4-5.0); Sodium 138 mmol/L (137-145)
[2020-08-16 06:42] LABS: NT Pro B Type Natriuretic Pept 71 PG/ML (5-100)
[2020-08-16 07:01] LABS: Alveolar/Arterial O2 Gradient 625.1 mmHg; Base Excess ABG 3.9 mEq/l (+/-2.0); Fractional Inspired Oxygen 100 %; HCO3 ABG 28.1 mEq/l (22.0-26.0); Oxygen Content ABG 16.6 %vol (16.0-22.0); PCO2 ABG 40.8 mmHg (35.0-45.0); PO2 FiO2 Ratio Arterial Blood 0.47 %; Total Hemoglobin 14.3 g/dL (12.0-18.0); pH ABG 7.456 (7.350-7.450)
[2020-08-16 07:03] LABS: Modified Allen's Test Pass; Oxygen Saturation ABG 85.1 % (95.0-100.0); PO2 ABG 47.1 mmHg (80.0-100.0); Site Drawn LEFT RADIAL
[2020-08-16 07:04] LABS: Device HIGH FLOW THERAPY
[2020-08-16] MEDS: ALBUTEROL SULFATE (*SP) AEROSOL 1 PUFF 2 PUFF INHALATION ×4 (07:29→20:25)
--- NOTE | 2020-08-16 07:30 | WPDINTPN ---
Progress Note: A&P Assessment and Plan (1) Acute respiratory failure due to COVID-19: Code(s): U07.1 - COVID-19; J96.00 - Acute respiratory failure, unspecified whether with hypoxia or hypercapnia Status: Acute Assessment and Plan: Acute Respiratory failure secondary to COVID-19 pneumonia CTA negative for PE. chest x-ray showed worsening infiltrates today currently on high-flow nasal cannula with 60 L flow and 100% FiO2 along with supplemental non-rebreather mask. his saturation was he was in 80s But did not appeared any significantly more symptomatic or in respiratory distress. I spoke to patient and encouraged him to try laying in prone position. Once patient was in prone position, his saturations improved 100% without needing supplemental mask. He appeared not in any distress or uncomfortable. Will continue to try prone As long as he tolerates. yesterday the improvement in sats maintained throughout day after a period of him lying prone . He still may need intubation and he is agreeable to it if needed SARS-CoV-2 PCR positive 08/12 Patient is in Airborne, Droplet and Contact Isolation Dexamethasone initiated on 08/12 Remdesivir initiated on 08/13 Received 1 unit of convalescent plasma 08/14 monitor inflammatory markers albuterol, p.r.n. dextromethorphan patient is also on vitamin C zinc and vitamin-D (2) Pneumonia due to COVID-19 virus: Code(s): U07.1 - COVID-19; J12.89 - Other viral pneumonia Status: Acute Assessment and Plan: see above (3) Hypertension: Qualifiers: Hypertension type: essential hypertension Qualified Code(s): I10 - Essential (primary) hypertension Code(s): I10 - Essential (primary) hypertension Status: Acute Assessment and Plan: blood pressure is in normal range will treat p.r.n. (4) Hyperglycemia: Code(s): R73.9 - Hyperglycemia, unspecified Status: Acute Assessment and Plan: clear liquid diet SSI Additional Plan Diet: clear liquid diet SUP- Pepcid DVT prophylaxis: Lovenox 40 mg b.i.d. for COVID-19 Code status: Full code Total Critical Care Time - 35 minutes Due to a high probability of clinically significant, life threatening deterioration, the patient required my highest level of preparedness to intervene emergently and I personally spent this critical care time directly and personally managing the patient. This critical care time included obtaining a history; examining the patient; pulse oximetry; ordering and review of studies; arranging urgent treatment with development of a management plan; evaluation of patient's response to treatment; frequent reassessment; and discussions with other providers. It was exclusive of separately billable procedures and treating other patients and teaching time. Please see Assessment and Plan section and the rest of the note for further information on patient assessment and treatment Subjective Date/time seen: 08/16/20 0725 Overnight events reviewed. Afebrile Continues to be on airvo and non-rebreather mask patient had sats in 80s this morning. he did not feel short of breath more than usual and continues to have intermittent dry cough he denied any other problems or complaints and did not appear in any respiratory distress Vitals acceptable Review of Systems Review of Systems: All systems reviewed & are unremarkable except as noted in HPI and below (HPI) Exam Narrative: Exam Narrative: General: Pt is alert awake and in NAD Lungs/Chest: Trachea central coarse BS B/L, few crackles No wheezing. no tachypnea or use of accessory muscle, no respiratory distress Cardiac: RRR. Normal S1 S2. No murmurs Circulation: Pedal pulses are intact and symmetrical. Abdomen: Normal bowel sounds.. Soft. NT. ND. Extremities: No clubbing, cyanosis or edema. Warm : Yepez in place Neurologic: Follows commands. Moves all 4 extremities PERRL alert o
[2020-08-16] MEDS: guaiFENesin 12 HR 600 MG TABCR 1200 MG PO ×2 (10:38→20:05)
[2020-08-16] MEDS: DEXAMETHASONE 2 MG TABLET 6 MG PO (10:38)
[2020-08-16] MEDS: FAMOTIDINE 20 MG TABLET PO ×2 (10:38→20:06)
[2020-08-16] MEDS: ENOXAPARIN 40 MG/0.4 ML SYRINGE SUB-Q ×2 (10:39→20:05)
[2020-08-16] MEDS: ZINC SULFATE 220 MG CAPSULE PO (10:39)
[2020-08-16] MEDS: LOSARTAN POTASSIUM 100 MG TABLET PO (10:39)
[2020-08-16] MEDS: ASCORBIC ACID 500 MG TABLET PO (10:39)
[2020-08-16] MEDS: CHOLECALCIFEROL 1,000 UNITS TABLET 1000 UNITS PO (12:26)
[2020-08-16 12:37] LABS: Glucose Point of Care 112 (65-105)
--- NOTE | 2020-08-16 13:07 | PM.IMPN ---
Progress Note: A&P Assessment and Plan (1) Pneumonia due to COVID-19 virus: Code(s): U07.1 - COVID-19; J12.89 - Other viral pneumonia Status: Acute Assessment and Plan: Positive covid .. CTA performed due to increased oxygen demands/increased dyspnea; no PE identified, findings consistent with COVID pneumonia noted. Inflammatory markers elevated. Remdesivir initiated 08/13. . transferred to ICU 08/14 pm Dexamethasone initiated on 08/12, . (day 02/16) Remdesivir initiated on 08/13; will continue this evening (day 01/12) convalescent plasma given 08/14 Continue supportive care of Tylenol PRN for fevers, Mucinex prn for cough, zinc, vitamin c and d Continue IS Wean O2 as tolerated, prn prone position and hopefully will not have to intubate Continuous pulse ox (2) Acute respiratory failure due to COVID-19: Code(s): U07.1 - COVID-19; J96.00 - Acute respiratory failure, unspecified whether with hypoxia or hypercapnia Status: Acute Assessment and Plan: ARF with hypoxia due to COVID19. Airvo 60 liters/minute and FiO2 of 90. CTA negative for PE. See above a/p (3) Hypertension: Qualifiers: Hypertension type: essential hypertension Qualified Code(s): I10 - Essential (primary) hypertension Code(s): I10 - Essential (primary) hypertension Status: Acute Assessment and Plan: BP 100s sys this morning Continue home medications, losartan daily Monitor (4) Hyperglycemia: Code(s): R73.9 - Hyperglycemia, unspecified Status: Acute Assessment and Plan: Patient serum fasting glucose has been elevated with dexamethasone. Patient denies diagnosis of diabetes A1c only 4.7 Monitor (5) DVT prophylaxis: Code(s): Z29.9 - Encounter for prophylactic measures, unspecified Status: Acute Assessment and Plan: for b.i.d. Adiel with his body habitus and diagnosis of COVID Subjective Date/time seen: 08/16/20 13:07 Interval history: Date of visit 08/16. Patient is a 50 yo M with history of HTN and obesity who is seen in follow up for COVID 19 infection/PNA and acute respiratory failure with hypoxia . He feels better this morning since last night with high-flow nasal cannula Airvo. Still has cough but less; . Denies subjective fevers/chills. No other complaints at the moment. Appetite fair Exam Narrative: Exam Narrative: blood pressure 130/74 pulse 56 sat 95% on 60 L and 905% FiO2 (02 sat increased after prone position) General: Patient resting supine in bed, respiratory rate slightly increased but even. HEENT: , EOMI, Cardiovascular: Rate and rhythm are regular. No murmur, rub, or gallop. Respiratory: coarse BS noted diffusely. crackles in the bases. Non-labored breathing. Abdomen: Soft, non-tender, non-distended, bowel sounds present. Skin: Warm and slightly diaphoretic to touch Extremities: Peripheral pulses intact. No edema. Neuro: No focal neurological deficits. Speech is clear. Objective Data Vital Signs Vital Signs: Vital Signs - 24 hr 08/15/20 14:00 08/15/20 16:00 08/15/20 18:00 Temperature 36.9 C Pulse Rate 65 67 70 Respiratory Rate 36 H 28 H 33 H Blood Pressure 132/74 157/88 H 121/69 Pulse Oximetry 98 91 94 08/15/20 20:00 08/15/20 21:01 08/15/20 22:00 Temperature 37.0 C Pulse Rate 52 L 54 L 56 L Respiratory Rate 24 H 27 H 25 H Blood Pressure 115/80 102/69 Pulse Oximetry 90 95 91 08/16/20 00:00 08/16/20 02:00 08/16/20 04:00 Temperature 36.9 C 37.1 C 36.7 C Pulse Rate 58 L 62 48 L Respiratory Rate 23 H 27 H 22 H Blood Pressure 115/82 113/77 113/77 Pulse Oximetry 93 92 94 08/16/20 05:52 08/16/20 06:00 08/16/20 07:31 Temperature Pulse Rate 56 L 56 L 54 L Respiratory Rate 27 H 26 H Blood Pressure 110/67 Pulse Oximetry 87 L 95 1
[2020-08-16 17:13] LABS: Glucose Point of Care 145 (65-105)
[2020-08-16] MEDS: REMDESIVIR 100 MG/NS 250 ML 100 MG/250 ML BAG 250 MG IVPB (19:00)
[2020-08-16] MEDS: diphenhydrAMINE HCl CAP 25 MG CAPSULE 50 MG PO (22:08)
[2020-08-17] VITALS (17 sets, daily range): BP systolic 93–122; BP diastolic 60–79; PULSE 50–76; RESP 18–32; TEMP 36.6–37.3; O2SAT 88–100
[2020-08-17 02:49] LABS: Glucose Point of Care 177 (65-105)
[2020-08-17 03:44] LABS: Hematocrit 37.9 % (42.0-52.0); Mean Corpuscular HGB Conc 34.3 g/dl (32-36); Mean Corpuscular Hemoglobin 30.2 pg (26-34); Mean Corpuscular Volume 88.1 fl (80-100); Mean Platelet Volume 9.3 fl (7.4-10.4); Platelet Count Result 229 k/mm3 (150-375); Red Cell Distribution Width 10.9 % (11.5-14.5); White Blood Count 10.9 K/mm3 (4.5-10.0)
[2020-08-17 03:54] LABS: Alanine Aminotransferase 42 U/L (4-50); Albumin Level 3.2 g/dL (3.5-5.1); Alkaline Phosphatase 77 U/L (38-126); Anion Gap 4 mmol/L (8-16); Aspartate Amino Transferase 47 U/L (17-59); Bilirubin,Total 0.9 mg/dL (0.2-1.3); Blood Urea Nitrogen 23 mg/dL (9-20); Calcium 8.4 mg/dL (8.4-10.2); Carbon Dioxide 34 mmol/L (22-30); Chloride 98 mmol/L (98-107); Estimated CRCL calculation 92 ml/min; Estimated Glomerular Filt Rate > 60; Glucose 115 mg/dL (75-110); Lactate Dehydrogenase 1410 U/L (313-618); Magnesium 2.2 mg/dL (1.6-2.3); Sodium 136 mmol/L (137-145)
[2020-08-17] MEDS: ALBUTEROL SULFATE (*SP) AEROSOL 1 PUFF 2 PUFF INHALATION ×4 (07:30→20:39)
[2020-08-17] MEDS: DEXAMETHASONE 2 MG TABLET 6 MG PO (08:02)
[2020-08-17] MEDS: ENOXAPARIN 40 MG/0.4 ML SYRINGE SUB-Q ×2 (08:03→20:23)
[2020-08-17] MEDS: ZINC SULFATE 220 MG CAPSULE PO (08:03)
[2020-08-17] MEDS: ASCORBIC ACID 500 MG TABLET PO (08:03)
[2020-08-17] MEDS: LOSARTAN POTASSIUM 100 MG TABLET PO (08:03)
[2020-08-17] MEDS: CHOLECALCIFEROL 1,000 UNITS TABLET 1000 UNITS PO (08:03)
[2020-08-17] MEDS: FAMOTIDINE 20 MG TABLET PO ×2 (08:03→20:24)
[2020-08-17] MEDS: guaiFENesin 12 HR 600 MG TABCR 1200 MG PO ×2 (08:03→20:24)
--- NOTE | 2020-08-17 12:19 | WPDINTPN ---
Progress Note: A&P Assessment and Plan (1) Acute respiratory failure due to COVID-19: Code(s): U07.1 - COVID-19; J96.00 - Acute respiratory failure, unspecified whether with hypoxia or hypercapnia Status: Acute Assessment and Plan: Acute Respiratory failure secondary to COVID-19 pneumonia CTA negative for PE. chest x-ray today showed Worsened diffuse lung disease, consistent with pneumonia versus pulmonary edema versus acute respiratory distress syndrome (ARDS). He is currently on high-flow nasal cannula with 60 L flow and 80% FiO2 but is not needing supplemental non-rebreather mask. I encouraged him to continue to try laying in prone position as much as possible as patient definitely benefits with increase in oxygen saturation and decrease in oxygen requirement He still may need intubation and he is agreeable to it if needed SARS-CoV-2 PCR positive 08/12 Patient is in Airborne, Droplet and Contact Isolation Dexamethasone initiated on 08/12 Remdesivir initiated on 08/13 Received 1 unit of convalescent plasma 08/14 monitor inflammatory markers which are improving albuterol, p.r.n. dextromethorphan patient is also on vitamin C zinc and vitamin-D he did receive Lasix on 08/11. appears euvolemic at this time (2) Pneumonia due to COVID-19 virus: Code(s): U07.1 - COVID-19; J12.89 - Other viral pneumonia Status: Acute Assessment and Plan: see above (3) Hypertension: Qualifiers: Hypertension type: essential hypertension Qualified Code(s): I10 - Essential (primary) hypertension Code(s): I10 - Essential (primary) hypertension Status: Acute Assessment and Plan: blood pressure is in normal range will treat p.r.n. (4) Hyperglycemia: Code(s): R73.9 - Hyperglycemia, unspecified Status: Acute Assessment and Plan: advance diet SSI Additional Plan Diet: advance diet SUP- Pepcid DVT prophylaxis: Lovenox 40 mg b.i.d. for COVID-19 Code status: Full code Total Critical Care Time - 30 minutes Due to a high probability of clinically significant, life threatening deterioration, the patient required my highest level of preparedness to intervene emergently and I personally spent this critical care time directly and personally managing the patient. This critical care time included obtaining a history; examining the patient; pulse oximetry; ordering and review of studies; arranging urgent treatment with development of a management plan; evaluation of patient's response to treatment; frequent reassessment; and discussions with other providers. It was exclusive of separately billable procedures and treating other patients and teaching time. Please see Assessment and Plan section and the rest of the note for further information on patient assessment and treatment Subjective Date/time seen: 08/17/20 0915 patient feels better this morning and states his breathing is better as compared to yesterday. he continues to have dry cough. He denies any other complaints no fever chills body aches. Patient denies fever, chest pain, nausea, vomiting, abdominal pain,, diarrhea, headache or constipation. Slept prone last night for at least 4-6 hours. Spencer that Benadryl pill helped him with sleeping prone Review of Systems Review of Systems: All systems reviewed & are unremarkable except as noted in HPI and below (HPI) Exam Narrative: Exam Narrative: General: Pt is alert awake and in NAD sitting in chair Lungs/Chest: Trachea central coarse BS B/L, few crackles No wheezing. no tachypnea or use of accessory muscle, no respiratory distress Cardiac: RRR. Normal S1 S2. No murmurs Circulation: Pedal pulses are intact and symmetrical. Abdomen: Normal bowel sounds.. Soft. NT. ND. Extremities: No clubbing, cyanosis or edema. Warm : Yepez in place Neurologic: Follows commands. Moves all 4 extremities PERRL alert oriented x3 Skin: No Rash Objectiv
--- NOTE | 2020-08-17 14:39 | PM.IMPN ---
Progress Note: A&P Assessment and Plan (1) Pneumonia due to COVID-19 virus: Code(s): U07.1 - COVID-19; J12.89 - Other viral pneumonia Status: Acute Assessment and Plan: Positive covid .. CTA performed due to increased oxygen demands/increased dyspnea; no PE identified, findings consistent with COVID pneumonia noted. Inflammatory markers elevated. Remdesivir initiated 08/13. . transferred to ICU 08/14 pm Dexamethasone initiated on 08/12, . (day 03/19) Remdesivir initiated on 08/13; will finished this evening (day 02/11) convalescent plasma given 08/14 Continue supportive care of Tylenol PRN for fevers, Mucinex prn for cough, zinc, vitamin c and d Continue IS Wean O2 as tolerated, prn prone position, FI02 decreased to 80. and hopefully will not have to intubate Continuous pulse ox inflammatory markers decreased some today 08/17 (2) Acute respiratory failure due to COVID-19: Code(s): U07.1 - COVID-19; J96.00 - Acute respiratory failure, unspecified whether with hypoxia or hypercapnia Status: Acute Assessment and Plan: ARF with hypoxia due to COVID19. Airvo 60 liters/minute and FiO2 of 80. CTA negative for PE. See above a/p (3) Hypertension: Qualifiers: Hypertension type: essential hypertension Qualified Code(s): I10 - Essential (primary) hypertension Code(s): I10 - Essential (primary) hypertension Status: Acute Assessment and Plan: BP 100s sys this morning losartan on hold Monitor (4) Hyperglycemia: Code(s): R73.9 - Hyperglycemia, unspecified Status: Acute Assessment and Plan: Patient serum fasting glucose has been elevated with dexamethasone. Patient denies diagnosis of diabetes A1c only 4.7 Monitor, ss as needed (5) DVT prophylaxis: Code(s): Z29.9 - Encounter for prophylactic measures, unspecified Status: Acute Assessment and Plan: for b.i.d. Estebanx with his body habitus and diagnosis of COVID Subjective Date/time seen: 08/17/20 14:39 Interval history: Date of visit 08/17. Patient is a 50 yo M with history of HTN and obesity who is seen in follow up for COVID 19 infection/PNA and acute respiratory failure with hypoxia . He feels no worse. Still has cough but less; . Denies subjective fevers/chills. No other complaints at the moment. Appetite fair Exam Narrative: Exam Narrative: blood pressure 100/74 pulse 74 sat 95% on 60 L and 80% FiO2 (02 sat increased after prone position) General: Patient resting supine in bed, respiratory rate slightly increased but even. HEENT: , EOMI, Cardiovascular: Rate and rhythm are regular. No murmur, rub, or gallop. Respiratory: coarse BS noted diffusely. crackles in the bases. Non-labored breathing. Abdomen: Soft, non-tender, non-distended, bowel sounds present. Skin: Warm and slightly diaphoretic to touch Extremities: Peripheral pulses intact. No edema. Neuro: No focal neurological deficits. Speech is clear. Objective Data Vital Signs Vital Signs: Vital Signs - 24 hr 08/16/20 16:00 08/16/20 17:45 08/16/20 18:00 Temperature 36.9 C Pulse Rate 57 L 62 Respiratory Rate 26 H 26 H Blood Pressure 121/78 106/71 Pulse Oximetry 95 98 96 08/16/20 20:00 08/16/20 20:29 08/16/20 22:00 Temperature 37.0 C Pulse Rate 59 L 57 L 52 L Respiratory Rate 22 H 22 H 22 H Blood Pressure 101/70 99/68 L Pulse Oximetry 95 92 95 08/16/20 23:26 08/17/20 00:00 08/17/20 02:00 Temperature Pulse Rate 51 L 53 L Respiratory Rate 18 23 H Blood Pressure 112/79 121/74 Pulse Oximetry 95 100 89 L 08/17/20 03:43 08/17/20 04:00 08/17/20 06:00 Temperature 36.9 C 37.0 C Pulse Rate 53 L 66 Respiratory Rate 20 18 Blood Pressure 109/70 122/69 Pulse Oximetry 99 97 91 08/17/20 07:32 08/17/20 08:00
[2020-08-17 17:58] LABS: Glucose Point of Care 160 (65-105)
[2020-08-17] MEDS: REMDESIVIR 100 MG/NS 250 ML 100 MG/250 ML BAG 250 MG IVPB (18:53)
[2020-08-17] MEDS: diphenhydrAMINE HCl CAP 25 MG CAPSULE 50 MG PO (21:32)
[2020-08-18] VITALS (20 sets, daily range): BP systolic 88–138; BP diastolic 59–82; PULSE 54–98; RESP 14–30; TEMP 37–37.9; O2SAT 61–100
[2020-08-18 06:16] LABS: Hematocrit 38.4 % (42.0-52.0); Hemoglobin 13.1 g/dL (14.0-18.0); Mean Corpuscular HGB Conc 34.1 g/dl (32-36); Mean Corpuscular Hemoglobin 29.9 pg (26-34); Mean Corpuscular Volume 87.7 fl (80-100); Mean Platelet Volume 9.2 fl (7.4-10.4); Platelet Count Result 290 k/mm3 (150-375); Red Blood Count 4.38 M/mm3 (4.6-6.20); White Blood Count 16.2 K/mm3 (4.5-10.0)
[2020-08-18 06:26] LABS: Alanine Aminotransferase 37 U/L (4-50); Albumin Level 3.2 g/dL (3.5-5.1); Alkaline Phosphatase 84 U/L (38-126); Anion Gap 4 mmol/L (8-16); Aspartate Amino Transferase 34 U/L (17-59); Blood Urea Nitrogen 22 mg/dL (9-20); Calcium 8.4 mg/dL (8.4-10.2); Carbon Dioxide 33 mmol/L (22-30); Chloride 100 mmol/L (98-107); Estimated CRCL calculation 95 ml/min; Estimated Glomerular Filt Rate > 60; Glucose 94 mg/dL (75-110); Magnesium 2.1 mg/dL (1.6-2.3); Potassium 3.8 mmol/L (3.4-5.0); Sodium 137 mmol/L (137-145)
[2020-08-18] MEDS: guaiFENesin 12 HR 600 MG TABCR 1200 MG PO ×2 (08:19→20:17)
[2020-08-18] MEDS: DEXTROMETHORPHAN POLISTIREX 60 MG/10 ML SYRINGE PO (08:19)
[2020-08-18] MEDS: CHOLECALCIFEROL 1,000 UNITS TABLET 1000 UNITS PO (08:20)
[2020-08-18] MEDS: ENOXAPARIN 40 MG/0.4 ML SYRINGE SUB-Q ×2 (08:20→20:17)
[2020-08-18] MEDS: ZINC SULFATE 220 MG CAPSULE PO (08:20)
[2020-08-18] MEDS: DEXAMETHASONE 2 MG TABLET 6 MG PO (08:20)
[2020-08-18] MEDS: ASCORBIC ACID 500 MG TABLET PO (08:20)
[2020-08-18] MEDS: ACETAMINOPHEN 325 MG TABLET 650 MG PO (08:28)
[2020-08-18] MEDS: ALBUTEROL SULFATE (*SP) AEROSOL 1 PUFF 2 PUFF INHALATION ×4 (08:28→21:24)
[2020-08-18 08:58] LABS: Glucose Point of Care 97 (65-105)
[2020-08-18] MEDS: FAMOTIDINE 20 MG TABLET PO ×2 (09:54→20:17)
--- NOTE | 2020-08-18 11:22 | WPDINTPN ---
Progress Note: A&P Assessment and Plan (1) Acute respiratory failure due to COVID-19: Code(s): U07.1 - COVID-19; J96.00 - Acute respiratory failure, unspecified whether with hypoxia or hypercapnia Status: Acute Assessment and Plan: Acute Respiratory failure secondary to COVID-19 pneumonia CTA negative for PE. chest x-ray today showed Worsened diffuse lung disease, consistent with pneumonia versus pulmonary edema versus acute respiratory distress syndrome (ARDS). He is currently on high-flow nasal cannula with 60 L flow and 80% FiO2 but is not needing supplemental non-rebreather mask. I encouraged him to continue to try laying in prone position as much as possible as patient definitely benefits with increase in oxygen saturation and decrease in oxygen requirement He still may need intubation and he is agreeable to it if needed SARS-CoV-2 PCR positive 08/12 Patient is in Airborne, Droplet and Contact Isolation Dexamethasone initiated on 08/12 Remdesivir completed on 08/17 Received 1 unit of convalescent plasma 08/14 monitor inflammatory markers which are improving albuterol, p.r.n. dextromethorphan patient is also on vitamin C, zinc and vitamin-D he did receive Lasix on 08/11. appears euvolemic at this time (2) Pneumonia due to COVID-19 virus: Code(s): U07.1 - COVID-19; J12.89 - Other viral pneumonia Status: Acute Assessment and Plan: see above (3) Hypertension: Qualifiers: Hypertension type: essential hypertension Qualified Code(s): I10 - Essential (primary) hypertension Code(s): I10 - Essential (primary) hypertension Status: Acute Assessment and Plan: blood pressure is in normal range will treat p.r.n. (4) Hyperglycemia: Code(s): R73.9 - Hyperglycemia, unspecified Status: Acute Assessment and Plan: advance diet SSI Additional Plan Diet: tolerating diet with positive bowel movements SUP- Pepcid DVT prophylaxis: Lovenox 40 mg b.i.d. for COVID-19 Code status: Full code Total Critical Care Time - 33 minutes Due to a high probability of clinically significant, life threatening deterioration, the patient required my highest level of preparedness to intervene emergently and I personally spent this critical care time directly and personally managing the patient. This critical care time included obtaining a history; examining the patient; pulse oximetry; ordering and review of studies; arranging urgent treatment with development of a management plan; evaluation of patient's response to treatment; frequent reassessment; and discussions with other providers. It was exclusive of separately billable procedures and treating other patients and teaching time. Please see Assessment and Plan section and the rest of the note for further information on patient assessment and treatment Subjective Date/time seen: 08/18/20 11:22 Interval history: Patient is a 50 yo M with history of HTN and obesity who is seen in follow up for COVID 19 infection/PNA and acute respiratory failure with hypoxia . 08/18/2020: Patient seen and examined this morning in the ICU. Remains on 60 L flow rate 80% FiO2 on Airvo. Patient has been protein himself for few hours during the day at night. Complains of cough which is been improving with anti tussive medications. Patient is hemodynamically stable, afebrile, adequate urine output. Denies any fevers, chills or body aches. He also denies any loss of taste or smell. tolerating his diet, positive bowel movement Review of Systems Review of Systems: All systems reviewed & are unremarkable except as noted in HPI and below (HPI) Exam Const: General: comfortable and no acute distress HENMT: Mouth: Yes moist mucous membranes Eyes: Sclera: sclerae normal Pupils: Equal, round and reactive pupils present Neck: Neck: supple Thyroid: thyroid normal Resp: Other: Trachea central coarse BS B/L, few
[2020-08-18 11:33] LABS: Glucose Point of Care 189 (65-105)
[2020-08-18 16:29] LABS: Glucose Point of Care 137 (65-105)
--- NOTE | 2020-08-18 17:22 | PM.IMPN ---
Progress Note: A&P Assessment and Plan (1) Pneumonia due to COVID-19 virus: Code(s): U07.1 - COVID-19; J12.89 - Other viral pneumonia Status: Acute Assessment and Plan: Positive covid .. CTA performed due to increased oxygen demands/increased dyspnea; no PE identified, findings consistent with COVID pneumonia noted. Inflammatory markers elevated. Remdesivir initiated 08/13. . transferred to ICU 08/14 pm Dexamethasone initiated on 08/12, . (day 04/18) Remdesivir initiated on 08/13; will finished 08/17 convalescent plasma given 08/14 Continue supportive care of Tylenol PRN for fevers, Mucinex prn for cough, zinc, vitamin c and d Continue IS Wean O2 as tolerated, prn prone position,. and hopefully will not have to intubate Continuous pulse ox inflammatory markers decreased some 08/17 and recheck am (2) Acute respiratory failure due to COVID-19: Code(s): U07.1 - COVID-19; J96.00 - Acute respiratory failure, unspecified whether with hypoxia or hypercapnia Status: Acute Assessment and Plan: ARF with hypoxia due to COVID19. Airvo 35 liters/minute and FiO2 of 85. CTA negative for PE. See above a/p (3) Hypertension: Qualifiers: Hypertension type: essential hypertension Qualified Code(s): I10 - Essential (primary) hypertension Code(s): I10 - Essential (primary) hypertension Status: Acute Assessment and Plan: BP 100s sys this morning losartan on hold Monitor (4) Hyperglycemia: Code(s): R73.9 - Hyperglycemia, unspecified Status: Acute Assessment and Plan: Patient serum fasting glucose has been elevated with dexamethasone. Patient denies diagnosis of diabetes A1c only 4.7 Monitor, ss as needed (5) DVT prophylaxis: Code(s): Z29.9 - Encounter for prophylactic measures, unspecified Status: Acute Assessment and Plan: for b.i.d. Estebanx with his body habitus and diagnosis of COVID Subjective Date/time seen: 08/18/20 17:22 Interval history: Date of visit 08/18. Patient is a 50 yo M with history of HTN and obesity who is seen in follow up for COVID 19 infection/PNA and acute respiratory failure with hypoxia . He feels no worse. Still has cough but less; . Denies subjective fevers/chills. No other complaints at the moment. Appetite fair Exam Narrative: Exam Narrative: blood pressure 100/60 pulse 60 sat 92% on 35 L and 85% FiO2 (02 sat increases after prone position) General: Patient resting supine in bed, respiratory rate slightly increased but even. HEENT: , EOMI, Cardiovascular: Rate and rhythm are regular. No murmur, rub, or gallop. Respiratory: coarse BS noted diffusely. crackles in the bases. Non-labored breathing. Abdomen: Soft, non-tender, non-distended, bowel sounds present. Skin: Warm and slightly diaphoretic to touch Extremities: Peripheral pulses intact. No edema. Neuro: No focal neurological deficits. Speech is clear. Objective Data Vital Signs Vital Signs: Vital Signs - 24 hr 08/17/20 18:00 08/17/20 20:00 08/17/20 20:40 Temperature 37.0 C Pulse Rate 62 65 Respiratory Rate 24 H 30 H Blood Pressure 116/72 Pulse Oximetry 98 93 97 08/17/20 22:00 08/18/20 00:00 08/18/20 02:42 Temperature Pulse Rate 61 55 L 64 Respiratory Rate 19 14 21 H Blood Pressure 116/72 136/77 130/79 Pulse Oximetry 99 100 88 L 08/18/20 03:46 08/18/20 04:00 08/18/20 06:00 Temperature 37.3 C Pulse Rate 60 60 67 Respiratory Rate 19 26 H Blood Pressure 113/66 138/79 Pulse Oximetry 95 94 88 L 08/18/20 08:00 08/18/20 08:28 08/18/20 08:32 Temperature 37.9 C H 37.9 C H Pulse Rate 70 72 Respiratory Rate 26 H 20 Blood Pressure 125/82 Pulse Oximetry 90 96 08/18/20 09:28 08/18/20 10:00 08/18/20 11:34 Temperature 37.5 C Pulse
[2020-08-18] MEDS: diphenhydrAMINE HCl CAP 25 MG CAPSULE 50 MG PO (22:26)
[2020-08-19] VITALS (16 sets, daily range): BP systolic 80–125; BP diastolic 45–78; PULSE 56–78; RESP 14–34; TEMP 36.4–38; O2SAT 88–98
[2020-08-19 05:11] LABS: Hematocrit 37.3 % (42.0-52.0); Hemoglobin 12.6 g/dL (14.0-18.0); Mean Corpuscular HGB Conc 33.8 g/dl (32-36); Mean Corpuscular Hemoglobin 29.8 pg (26-34); Mean Corpuscular Volume 88.2 fl (80-100); Mean Platelet Volume 9.3 fl (7.4-10.4); Platelet Count Result 299 k/mm3 (150-375); Red Blood Count 4.23 M/mm3 (4.6-6.20); White Blood Count 14.6 K/mm3 (4.5-10.0)
[2020-08-19 05:31] LABS: D Dimer 1.29 ug/mL (<0.48)
[2020-08-19 05:37] LABS: Alanine Aminotransferase 32 U/L (4-50); Albumin Level 3.2 g/dL (3.5-5.1); Alkaline Phosphatase 86 U/L (38-126); Anion Gap 4 mmol/L (8-16); Aspartate Amino Transferase 31 U/L (17-59); Bilirubin,Total 0.9 mg/dL (0.2-1.3); Blood Urea Nitrogen 23 mg/dL (9-20); CRP 7.2 mg/dL (<1.0); Calcium 8.6 mg/dL (8.4-10.2); Carbon Dioxide 33 mmol/L (22-30); Chloride 98 mmol/L (98-107); Estimated CRCL calculation 95 ml/min; Estimated Glomerular Filt Rate > 60; Glucose 94 mg/dL (75-110); Lactate Dehydrogenase 1259 U/L (313-618); Magnesium 2.3 mg/dL (1.6-2.3); Phosphorus 3.6 mg/dL (2.5-4.5); Sodium 135 mmol/L (137-145)
[2020-08-19] MEDS: ALBUTEROL SULFATE (*SP) AEROSOL 1 PUFF 2 PUFF INHALATION ×4 (07:37→20:59)
[2020-08-19] MEDS: CHOLECALCIFEROL 1,000 UNITS TABLET 1000 UNITS PO (08:48)
[2020-08-19] MEDS: FAMOTIDINE 20 MG TABLET PO ×2 (08:48→22:29)
[2020-08-19] MEDS: ASCORBIC ACID 500 MG TABLET PO (08:49)
[2020-08-19] MEDS: ZINC SULFATE 220 MG CAPSULE PO (08:49)
[2020-08-19] MEDS: DEXAMETHASONE 2 MG TABLET 6 MG PO (08:49)
[2020-08-19] MEDS: guaiFENesin 12 HR 600 MG TABCR 1200 MG PO ×2 (08:49→22:29)
[2020-08-19] MEDS: ENOXAPARIN 40 MG/0.4 ML SYRINGE SUB-Q ×2 (08:50→22:30)
[2020-08-19 09:05] LABS: Glucose Point of Care 95 (65-105)
--- NOTE | 2020-08-19 11:43 | WPDINTPN ---
Progress Note: A&P Assessment and Plan (1) Acute respiratory failure due to COVID-19: Code(s): U07.1 - COVID-19; J96.00 - Acute respiratory failure, unspecified whether with hypoxia or hypercapnia Status: Acute Assessment and Plan: Acute Respiratory failure secondary to COVID-19 pneumonia CTA negative for PE. chest x-ray today showed Worsened diffuse lung disease, consistent with pneumonia versus pulmonary edema versus acute respiratory distress syndrome (ARDS). He is currently on high-flow nasal cannula with 60 L flow and 80% FiO2 but is not needing supplemental non-rebreather mask. I encouraged him to continue to try laying in prone position as much as possible as patient definitely benefits with increase in oxygen saturation and decrease in oxygen requirement He still may need intubation and he is agreeable to it if needed SARS-CoV-2 PCR positive 08/12 Dexamethasone initiated on 08/12 Remdesivir completed on 08/17 Received 1 unit of convalescent plasma 08/14 albuterol, p.r.n. dextromethorphan patient is also on vitamin C, zinc and vitamin-D appears euvolemic at this time (2) Pneumonia due to COVID-19 virus: Code(s): U07.1 - COVID-19; J12.89 - Other viral pneumonia Status: Acute Assessment and Plan: Patient is in Airborne, Droplet and Contact Isolation Continue monitoring inflammatory markers which are improving (3) Hypertension: Qualifiers: Hypertension type: essential hypertension Qualified Code(s): I10 - Essential (primary) hypertension Code(s): I10 - Essential (primary) hypertension Status: Acute Assessment and Plan: blood pressure is in normal range will treat p.r.n. (4) Hyperglycemia: Code(s): R73.9 - Hyperglycemia, unspecified Status: Acute Assessment and Plan: much improvement sliding-scale insulin and Accu-Cheks Additional Plan Diet: tolerating diet with positive bowel movements SUP- Pepcid DVT prophylaxis: Lovenox 40 mg b.i.d. for COVID-19 Code status: Full code Total Critical Care Time - 32 minutes Due to a high probability of clinically significant, life threatening deterioration, the patient required my highest level of preparedness to intervene emergently and I personally spent this critical care time directly and personally managing the patient. This critical care time included obtaining a history; examining the patient; pulse oximetry; ordering and review of studies; arranging urgent treatment with development of a management plan; evaluation of patient's response to treatment; frequent reassessment; and discussions with other providers. It was exclusive of separately billable procedures and treating other patients and teaching time. Please see Assessment and Plan section and the rest of the note for further information on patient assessment and treatment Subjective Date/time seen: 08/19/20 11:43 Interval history: Patient is a 50 yo M with history of HTN and obesity who is seen in follow up for COVID 19 infection/PNA and acute respiratory failure with hypoxia . 08/19/2020: Patient seen and examined this morning in the ICU. Remains on 50 L flow rate 80% FiO2 on Airvo. Patient has been protein himself for few hours during the day at night. Complains of cough which is been improving with anti tussive medications. Patient is hemodynamically stable, afebrile, adequate urine output. Denies any fevers, chills or body aches. He also denies any loss of taste or smell. tolerating his diet, positive bowel movement Review of Systems Review of Systems: All systems reviewed & are unremarkable except as noted in HPI and below (HPI) Exam Narrative: Exam Narrative: General: Pt is alert awake and in NAD sitting in chair Lungs/Chest: Trachea central coarse BS B/L, few crackles No wheezing. no tachypnea or use of accessory muscle, no respiratory distress Cardiac: RRR. Normal S1 S2. No murmurs Circul
[2020-08-19] MEDS: ACETAMINOPHEN 325 MG TABLET 650 MG PO ×2 (12:13→22:27)
[2020-08-19 12:22] LABS: Glucose Point of Care 159 (65-105)
[2020-08-19] MEDS: INSULIN ASPART (*BKC) 100 UNITS/ML SUB-Q (16:06)
[2020-08-19 17:09] LABS: Glucose Point of Care 226 (65-105)
[2020-08-19] MEDS: diphenhydrAMINE HCl CAP 25 MG CAPSULE 50 MG PO (22:27)
[2020-08-19] MEDS: DEXTROMETHORPHAN POLISTIREX 60 MG/10 ML SYRINGE PO (22:28)
[2020-08-20] VITALS (20 sets, daily range): BP systolic 90–126; BP diastolic 56–83; PULSE 59–81; RESP 17–37; TEMP 36.6–37.2; O2SAT 88–100
[2020-08-20] MEDS: ZINC SULFATE 220 MG CAPSULE PO (08:41)
[2020-08-20] MEDS: DEXAMETHASONE 2 MG TABLET 6 MG PO (08:41)
[2020-08-20] MEDS: FAMOTIDINE 20 MG TABLET PO ×2 (08:41→21:43)
[2020-08-20] MEDS: ASCORBIC ACID 500 MG TABLET PO (08:41)
[2020-08-20] MEDS: CHOLECALCIFEROL 1,000 UNITS TABLET 1000 UNITS PO (08:42)
[2020-08-20] MEDS: guaiFENesin 12 HR 600 MG TABCR 1200 MG PO ×2 (08:42→21:44)
[2020-08-20] MEDS: ENOXAPARIN 40 MG/0.4 ML SYRINGE SUB-Q ×2 (08:42→21:43)
[2020-08-20 08:56] LABS: Hematocrit 39.7 % (42.0-52.0); Hemoglobin 13.3 g/dL (14.0-18.0); Mean Corpuscular HGB Conc 33.5 g/dl (32-36); Mean Corpuscular Volume 89.6 fl (80-100); Mean Platelet Volume 9.1 fl (7.4-10.4); Platelet Count Result 337 k/mm3 (150-375); Red Blood Count 4.43 M/mm3 (4.6-6.20); White Blood Count 16.3 K/mm3 (4.5-10.0)
[2020-08-20 08:58] LABS: Glucose Point of Care 99 (65-105)
[2020-08-20 09:10] LABS: Alanine Aminotransferase 28 U/L (4-50); Albumin Level 3.2 g/dL (3.5-5.1); Alkaline Phosphatase 94 U/L (38-126); Anion Gap 4 mmol/L (8-16); Aspartate Amino Transferase 32 U/L (17-59); Blood Urea Nitrogen 23 mg/dL (9-20); Calcium 8.6 mg/dL (8.4-10.2); Carbon Dioxide 35 mmol/L (22-30); Chloride 97 mmol/L (98-107); Estimated CRCL calculation 85 ml/min; Estimated Glomerular Filt Rate > 60; Glucose 89 mg/dL (75-110); Magnesium 2.2 mg/dL (1.6-2.3); Phosphorus 3.8 mg/dL (2.5-4.5); Potassium 4.2 mmol/L (3.4-5.0); Sodium 136 mmol/L (137-145)
[2020-08-20] MEDS: ALBUTEROL SULFATE (*SP) AEROSOL 1 PUFF 2 PUFF INHALATION ×3 (09:45→19:49)
--- NOTE | 2020-08-20 11:18 | PCNWS ---
Weekly nutritional screen. Patient is tolerating current diet with adequate intake. No weight loss reported. No nutritional needs at this time.
--- NOTE | 2020-08-20 11:56 | WPDINTPN ---
Progress Note: A&P Assessment and Plan (1) Acute respiratory failure due to COVID-19: Code(s): U07.1 - COVID-19; J96.00 - Acute respiratory failure, unspecified whether with hypoxia or hypercapnia Status: Acute Assessment and Plan: Acute Respiratory failure secondary to COVID-19 pneumonia - CTA negative for PE. - chest x-ray Shows unchanged diffuse lung disease, consistent with pneumonia versus pulmonary edema versus acute respiratory distress syndrome (ARDS). - He is currently on high-flow nasal cannula with 60 L flow and 80% FiO2 but is not needing supplemental non-rebreather mask. - I encouraged him to continue to try laying in prone position as much as possible as patient definitely benefits with increase in oxygen saturation and decrease in oxygen requirement - He still may need intubation and he is agreeable to it if needed - SARS-CoV-2 PCR positive 08/12 - Dexamethasone initiated on 08/12 - Remdesivir completed on 08/17 - Received 1 unit of convalescent plasma 08/14 - albuterol, p.r.n. dextromethorphan - patient is also on vitamin C, zinc and vitamin-D - appears euvolemic at this time (2) Pneumonia due to COVID-19 virus: Code(s): U07.1 - COVID-19; J12.89 - Other viral pneumonia Status: Acute Assessment and Plan: Patient is in Airborne, Droplet and Contact Isolation -Continue monitoring inflammatory markers which are improving (3) Hypertension: Qualifiers: Hypertension type: essential hypertension Qualified Code(s): I10 - Essential (primary) hypertension Code(s): I10 - Essential (primary) hypertension Status: Acute Assessment and Plan: blood pressure is in normal range will treat p.r.n. (4) Hyperglycemia: Code(s): R73.9 - Hyperglycemia, unspecified Status: Acute Assessment and Plan: much improvement sliding-scale insulin and Accu-Cheks Additional Plan Diet: tolerating diet with positive bowel movements SUP- Pepcid DVT prophylaxis: Lovenox 40 mg b.i.d. for COVID-19 Code status: Full code Total Critical Care Time - 32 minutes Due to a high probability of clinically significant, life threatening deterioration, the patient required my highest level of preparedness to intervene emergently and I personally spent this critical care time directly and personally managing the patient. This critical care time included obtaining a history; examining the patient; pulse oximetry; ordering and review of studies; arranging urgent treatment with development of a management plan; evaluation of patient's response to treatment; frequent reassessment; and discussions with other providers. It was exclusive of separately billable procedures and treating other patients and teaching time. Please see Assessment and Plan section and the rest of the note for further information on patient assessment and treatment Subjective Date/time seen: 08/20/20 11:56 Interval history: Patient is a 50 yo M with history of HTN and obesity who is seen in follow up for COVID 19 infection/PNA and acute respiratory failure with hypoxia . 08/20/2020: Patient seen and examined this morning in the ICU. Remains on 50 L flow rate 90% FiO2 on Airvo. Patient was in a prone position almost all night long . States his cough is better, T-max of 100.4. Adequate urine output, hemodynamically stable. Denies any loss of taste or smell. Tolerating his diet. Review of Systems Review of Systems: All systems reviewed & are unremarkable except as noted in HPI and below (HPI) Exam Const: General: comfortable and no acute distress HENMT: Mouth: Yes moist mucous membranes Eyes: Sclera: sclerae normal Pupils: Equal, round and reactive pupils present Neck: Neck: supple Thyroid: thyroid normal Resp: Other: Trachea central coarse BS B/L, few crackles No wheezing. no tachypnea or use of accessory muscle, no respiratory distress Cardio: Rate: regular rate
[2020-08-20] MEDS: ACETAMINOPHEN 325 MG TABLET 650 MG PO ×2 (12:23→23:32)
--- NOTE | 2020-08-20 12:42 | PM.IMPN ---
Progress Note: A&P Assessment and Plan (1) Pneumonia due to COVID-19 virus: Code(s): U07.1 - COVID-19; J12.89 - Other viral pneumonia Status: Acute Assessment and Plan: Positive COVID test on 08/12. CTA performed due to increased oxygen demands/increased dyspnea; no PE identified, findings consistent with COVID pneumonia noted. Inflammatory markers elevated. Transferred to ICU 08/14 pm Dexamethasone initiated on 08/12, currently Day 9 Remdesivir initiated on 08/13 and finished 08/17 convalescent plasma given 08/14 Continue supportive care of Tylenol PRN for fevers, Mucinex prn for cough, zinc, vitamin c and d Continue IS Wean O2 as tolerated; Increase activity with up to chair and lying prone as he tolerates. (2) Acute respiratory failure due to COVID-19: Code(s): U07.1 - COVID-19; J96.00 - Acute respiratory failure, unspecified whether with hypoxia or hypercapnia Status: Acute Assessment and Plan: Acute resp failure with hypoxia due to COVID19. Currently on Airvo and NRB mask. Advised to be up to the chair for as much as possible. Wean O2 as tolerated. (3) Hypertension: Qualifiers: Hypertension type: essential hypertension Qualified Code(s): I10 - Essential (primary) hypertension Code(s): I10 - Essential (primary) hypertension Status: Acute Assessment and Plan: Patient's blood pressure was reviewed on 08/20 Blood pressure soft at times. Losartan remains on hold (4) Hyperglycemia: Code(s): R73.9 - Hyperglycemia, unspecified Status: Acute Assessment and Plan: A1c 4.7. Patient's glucose has been elevated due to the dexamethasone. Glucose remains well controlled. Continue AccuCheks covering with sliding scale. Hypoglycemia protocol available as needed. (5) DVT prophylaxis: Code(s): Z29.9 - Encounter for prophylactic measures, unspecified Status: Acute Assessment and Plan: Lovenox Q12h due to his body habitus and diagnosis of COVID Subjective Date/time seen: 08/20/20 12:42 Interval history: Date of service: 08/20 50yo male with HTN here for acute respiratory failure due to COVID. Assuming care. Chart reviewed. Patient curently on NRB mask 50L at 80%. He does better when prone and up in the chair but worse when lying in bed. SOB about the same. No CP. Cough better. No n/v. Eating well. Exam Narrative: Exam Narrative: Tm 100.4 98.8 99/61 67 20 92% NRB with Airvo Gen - tachypneic even with mild exertion. Chest - distant BS, few scattered inspir crackles, tachypneic with short breaths CV - RRR S1/S2; Tele showing no significnat dysrhythmias Abd - Soft, NT/ND, Positive BS Ext - No pedal edema Psych - Nml mood and affect Skin - Warm and dry Objective Data Vital Signs Vital Signs: Vital Signs - 24 hr 08/19/20 13:03 08/19/20 14:00 08/19/20 16:00 Temperature 98.4 F Pulse Rate 75 74 Respiratory Rate 32 H 27 H Blood Pressure 92/45 L 108/66 Pulse Oximetry 94 96 92 08/19/20 18:00 08/19/20 20:00 08/19/20 21:02 Temperature 97.6 F 97.9 F Pulse Rate 62 71 Respiratory Rate 27 H 18 Blood Pressure 80/58 L 108/71 Pulse Oximetry 92 91 94 08/19/20 22:00 08/20/20 00:00 08/20/20 02:00 Temperature Pulse Rate 71 60 59 L Respiratory Rate 18 17 18 Blood Pressure 126/83 120/64 Pulse Oximetry 92 93 93 08/20/20 04:00 08/20/20 06:00 08/20/20 08:00 Temperature 98.2 F 98.8 F Pulse Rate 59 L 74 64 Respiratory Rate 18 20 28 H Blood Pressure 102/68 106/71 105/70 Pulse Oximetry 93 97 94 08/20/20 09:59 08/20/20 10:00 08/20/20 11:36 Temperature Pulse Rate 81 75 71 Respiratory Rate 30 H 29 H Blood Pressure 90/67 L Pulse Oximetry 98 90 08/20/20 12:00 Temperature 98.8 F Pulse Rate 67 Respiratory Rate 20
[2020-08-20] MEDS: diphenhydrAMINE HCl CAP 25 MG CAPSULE 50 MG PO (22:52)
[2020-08-20] MEDS: DEXTROMETHORPHAN POLISTIREX 60 MG/10 ML SYRINGE PO (23:23)
[2020-08-21] VITALS (22 sets, daily range): BP systolic 98–124; BP diastolic 57–76; PULSE 62–88; RESP 19–37; TEMP 36.6–37.2; O2SAT 87–98
[2020-08-21] MEDS: FAMOTIDINE 20 MG TABLET PO ×2 (07:33→21:28)
[2020-08-21] MEDS: guaiFENesin 12 HR 600 MG TABCR 1200 MG PO ×2 (07:33→21:29)
[2020-08-21] MEDS: ASCORBIC ACID 500 MG TABLET PO (07:33)
[2020-08-21] MEDS: CHOLECALCIFEROL 1,000 UNITS TABLET 1000 UNITS PO (07:33)
[2020-08-21] MEDS: ZINC SULFATE 220 MG CAPSULE PO (07:33)
[2020-08-21] MEDS: DEXAMETHASONE 2 MG TABLET 6 MG PO (07:33)
[2020-08-21] MEDS: ENOXAPARIN 40 MG/0.4 ML SYRINGE SUB-Q ×2 (07:33→21:28)
[2020-08-21] MEDS: FUROSEMIDE INJ 40 MG/4 ML VIAL IV PUSH (07:38)
[2020-08-21] MEDS: ALBUTEROL SULFATE (*SP) AEROSOL 1 PUFF 2 PUFF INHALATION ×4 (07:50→19:54)
[2020-08-21 08:02] LABS: D Dimer 2.85 ug/mL (<0.48)
[2020-08-21 08:21] LABS: Alanine Aminotransferase 27 U/L (4-50); Albumin Level 3.1 g/dL (3.5-5.1); Alkaline Phosphatase 100 U/L (38-126); Anion Gap 3 mmol/L (8-16); Aspartate Amino Transferase 31 U/L (17-59); Bilirubin,Total 0.9 mg/dL (0.2-1.3); Blood Urea Nitrogen 25 mg/dL (9-20); CRP 8.1 mg/dL (<1.0); Calcium 8.6 mg/dL (8.4-10.2); Carbon Dioxide 36 mmol/L (22-30); Chloride 98 mmol/L (98-107); Estimated CRCL calculation 81 ml/min; Estimated Glomerular Filt Rate > 60; Glucose 91 mg/dL (75-110); Lactate Dehydrogenase 1193 U/L (313-618); Magnesium 2.1 mg/dL (1.6-2.3); Potassium 4.2 mmol/L (3.4-5.0); Sodium 137 mmol/L (137-145)
--- NOTE | 2020-08-21 09:30 | WPDINTPN ---
Progress Note: A&P Assessment and Plan (1) Acute respiratory failure due to COVID-19: Code(s): U07.1 - COVID-19; J96.00 - Acute respiratory failure, unspecified whether with hypoxia or hypercapnia <Iona Ford PA-C - Last Filed: 08/21/20 12:51> Status: Acute <Iona Ford PA-C - Last Filed: 08/21/20 12:51> Assessment and Plan: Acute respiratory failure secondary to COVID pneumonia. - CTA negative for pulmonary embolism. - Chest x-ray shows unchanged diffuse lung disease consistent with pneumonia versus pulmonary edema verses ARDS. Lasix 40 mg IV x1 given this morning. Euvolemic on exam, cumulative fluid balance -182 mL. - Currently on high-flow nasal cannula with 55 L flow and 95% FiO2 in addition to 15 L non-rebreather mask. - Continue to encourage prone position as his O2 saturation and oxygen requirements are responding well to such. - ABG pending given increasing oxygen requirements and increasing fatigue. Patient okay with intubation if need be. - Continue albuterol, p.r.n. dextromethorphan, vitamin-C, vitamin-D, and zinc. Timeline: - SARS-CoV-2 PCR positive 08/12. - Dexamethasone, 10 day course completed 08/21. - Remdesivir, 5 day course completed on 08/17. - Received 1 unit of convalescent plasma 08/14. <Iona Ford PA-C - Last Filed: 08/21/20 12:51> (2) Pneumonia due to COVID-19 virus: Code(s): U07.1 - COVID-19; J12.89 - Other viral pneumonia <Iona Ford PA-C - Last Filed: 08/21/20 12:51> Status: Acute <Iona Ford PA-C - Last Filed: 08/21/20 12:51> Assessment and Plan: - Afebrile for nearly 48 hours. - Continue airborne, droplet, and contact isolation. - Inflammatory markers reviewed. D-dimer has doubled in the last 48 hours and CRP continues to increase. LDH and ferritin are stable if not a bit improved. <Iona GEzequiel Ford PA-C - Last Filed: 08/21/20 12:51> (3) Hypertension: Qualifiers: Hypertension type: essential hypertension Qualified Code(s): I10 - Essential (primary) hypertension <Iona FrancaEzequiel Ford PA-C - Last Filed: 08/21/20 12:51> Code(s): I10 - Essential (primary) hypertension <Iona FrancaEzequiel Ford PA-C - Last Filed: 08/21/20 12:51> Status: Acute <Iona FrancaEzequiel Ford PA-C - Last Filed: 08/21/20 12:51> Assessment and Plan: - Clood pressures were reviewed and they have been well controlled, occasionally on the low side of normal. - Continue to hold losartan at this time and monitor daily. <Iona FrancaEzequiel Ford PA-C - Last Filed: 08/21/20 12:51> (4) Hyperglycemia: Code(s): R73.9 - Hyperglycemia, unspecified <Iona FrancaEzequiel Ford PA-C - Last Filed: 08/21/20 12:51> Status: Acute <Iona GEzequiel Ford PA-C - Last Filed: 08/21/20 12:51> Assessment and Plan: - Resolved, daily a.m. glucose has been well within normal limits. <Iona FrancaEzequiel Ford PA-C - Last Filed: 08/21/20 12:51> Subjective Date/time seen: 08/21/20 09:30 No acute issues overnight. Nurse reports that he seems much more tired today and is less active. Slept poorly due to discomfort in the prone position, albeit hypoxia is improved when in that position. Continues to have a nonproductive cough and shortness of breath with minimal activity. Has been eating well up until today, but has not eaten today due to shortness of breath. No fever, chest pain, pleuritic pain, nausea, vomiting, diarrhea, and nausea, or dysgeusia. Currently on 55 L high-flow with an FiO2 95% as well as 15 L non-rebreather p.r.n., mild epistaxis. <Iona Ford PA-C - Last Filed: 08/21/20 12:51> Interval history: Patient independently seen and exam
[2020-08-21] MEDS: ACETAMINOPHEN 325 MG TABLET 650 MG PO ×2 (10:42→23:51)
[2020-08-21 10:43] LABS: Base Excess ABG 3.5 mEq/l (+/-2.0); Fractional Inspired Oxygen 90 %; HCO3 ABG 27.5 mEq/l (22.0-26.0); Oxygen Content ABG 16.5 %vol (16.0-22.0); Oxyhemoglobin 83.8 % THb (90.0-100.0); PCO2 ABG 39.6 mmHg (35.0-45.0); PO2 FiO2 Ratio Arterial Blood 0.53 %
[2020-08-21 10:44] LABS: PO2 ABG 48.1 mmHg (80.0-100.0)
[2020-08-21 10:45] LABS: Device HIGH FLOW THERAPY; Oxygen Saturation ABG 86.1 % (95.0-100.0); Site Drawn LEFT BRACHIAL
--- NOTE | 2020-08-21 11:11 | PCPTNOTE ---
Attempted PT eval. Spoke w/ Guevara GRAHAM, states to hold PT due to pt having increased O2 need. Will try again tomorrow.
--- NOTE | 2020-08-21 11:19 | PCDIET ---
ICU Rounding Note: Pt current nutrition is Regular Nutrition recommendation: agree Last recorded weight is 80.6kg, down from admit wt of 89 kg Bowel Motility: 08/19 BM + Labs Reviewed:Ferritin 496, BUN 25, C Reactive 8.1, Albumin 3.1, Protein 6.0 Meds Noted:Lovenox, Vitamin C, Vitamin D, Zinc Additional Notes: Plans to increase O2 flow. No skin issues. No IV fluids. Has been eating well on an appropriate diet. If wt or PO intake declines, pt may be appropriate for nutrition supplements. Following daily in ICU rounds. Assessing/reassessing q 7 days.
--- NOTE | 2020-08-21 16:13 | PM.IMPN ---
Progress Note: A&P Assessment and Plan (1) Acute respiratory failure due to COVID-19: Code(s): U07.1 - COVID-19; J96.00 - Acute respiratory failure, unspecified whether with hypoxia or hypercapnia Status: Acute Assessment and Plan: Acute resp failure with hypoxia due to COVID19. Currently on Airvo and NRB mask. Advised to be up to the chair for as much as possible. Wean O2 as tolerated. (2) Pneumonia due to COVID-19 virus: Code(s): U07.1 - COVID-19; J12.89 - Other viral pneumonia Status: Acute Assessment and Plan: Positive COVID test on 08/12. CTA performed due to increased oxygen demands/increased dyspnea; no PE identified, findings consistent with COVID pneumonia noted. Inflammatory markers elevated. Patient transferred to ICU 08/14 pm. Completed 10 days of Dexamethasone on 08/21/20. Completed 5 days of Remdesivir on 08/17/20. Convalescent plasma given 08/14. Continue supportive care of Tylenol PRN for fevers, Mucinex prn for cough, zinc, vitamin C and D. Encouraged IS use. Wean O2 as tolerated; Increase activity with up to chair and lying prone as he tolerates. Continue supportive care. (3) Hypertension: Qualifiers: Hypertension type: essential hypertension Qualified Code(s): I10 - Essential (primary) hypertension Code(s): I10 - Essential (primary) hypertension Status: Acute Assessment and Plan: Patient's blood pressure was reviewed on 08/21 Blood pressure soft at times. Losartan remains on hold (4) Hyperglycemia: Code(s): R73.9 - Hyperglycemia, unspecified Status: Resolved Assessment and Plan: A1c 4.7. Patient's glucose has been elevated due to the dexamethasone. Glucose still elevated at times but mostly well controlled. Continue AccuCheks covering with sliding scale. Hypoglycemia protocol available as needed. (5) DVT prophylaxis: Code(s): Z29.9 - Encounter for prophylactic measures, unspecified Status: Acute Assessment and Plan: Lovenox Q12h due to his body habitus and diagnosis of COVID Subjective Date/time seen: 08/21/20 16:13 Interval history: Date of service: 08/21 50yo male with HTN here for acute respiratory failure due to COVID. Patient curently on NRB mask 55L at 90%. Up to the chair for 4 hours. No CP. no n/v. Eating okay. SOB unchanged. Exam Narrative: Exam Narrative: AF 98.8 100/64 76 30 90% Gen - NARD resting quietly Chest - few inspiratory crackles CV - RRR S1/S2; Tele showing no significant dysrhythmias Abd - Soft, NT/ND, Positive BS Ext - No pedal edema Psych - Nml mood and affect Skin - Warm and dry Objective Data Vital Signs Vital Signs: Vital Signs - 24 hr 08/20/20 17:12 08/20/20 18:00 08/20/20 19:47 Temperature Pulse Rate 68 65 Respiratory Rate 27 H 28 H Blood Pressure 104/58 L Pulse Oximetry 96 94 93 08/20/20 20:00 08/20/20 22:00 08/20/20 23:32 Temperature 98.1 F 97.9 F 97.9 F Pulse Rate 72 61 Respiratory Rate 18 25 H Blood Pressure 120/63 117/71 Pulse Oximetry 100 95 08/21/20 00:00 08/21/20 02:00 08/21/20 04:00 Temperature 98.1 F 97.9 F 98.0 F Pulse Rate 65 69 70 Respiratory Rate 24 H 20 22 H Blood Pressure 107/70 108/59 L 121/75 Pulse Oximetry 88 L 95 91 08/21/20 06:00 08/21/20 07:50 08/21/20 08:00 Temperature 98.0 F 98.9 F Pulse Rate 66 69 78 Respiratory Rate 24 H 28 H Blood Pressure 121/75 124/76 Pulse Oximetry 87 L 94 90 08/21/20 08:11 08/21/20 10:00 08/21/20 10:36 Temperature Pulse Rate 74 77 Respiratory Rate 37 H 31 H Blood Pressure 99/62 L Pulse Oximetry 94 91 92 08/21/20 11:44 08/21/20 11:50 08/21/20 12:00 Temperature 98.8 F Pulse Rate 71 74 82 Respiratory Rate 26 H 34 H Blood Pres
[2020-08-21] MEDS: DEXTROMETHORPHAN POLISTIREX 60 MG/10 ML SYRINGE PO (21:29)
[2020-08-21] MEDS: diphenhydrAMINE HCl CAP 25 MG CAPSULE 50 MG PO (23:51)
[2020-08-22] VITALS (19 sets, daily range): BP systolic 105–125; BP diastolic 41–103; PULSE 61–85; RESP 19–41; TEMP 36.7–37.7; O2SAT 85–97
[2020-08-22 06:28] LABS: Alanine Aminotransferase 25 U/L (4-50); Albumin Level 3.2 g/dL (3.5-5.1); Alkaline Phosphatase 103 U/L (38-126); Anion Gap 3 mmol/L (8-16); Aspartate Amino Transferase 31 U/L (17-59); Bilirubin,Total 0.7 mg/dL (0.2-1.3); Blood Urea Nitrogen 30 mg/dL (9-20); Calcium 8.5 mg/dL (8.4-10.2); Carbon Dioxide 37 mmol/L (22-30); Chloride 96 mmol/L (98-107); Estimated CRCL calculation 79 ml/min; Estimated Glomerular Filt Rate > 60; Glucose 98 mg/dL (75-110); Magnesium 2.2 mg/dL (1.6-2.3); Potassium 4.2 mmol/L (3.4-5.0); Sodium 136 mmol/L (137-145)
[2020-08-22] MEDS: ALBUTEROL SULFATE (*SP) AEROSOL 1 PUFF 2 PUFF INHALATION ×3 (08:05→16:40)
[2020-08-22] MEDS: ZINC SULFATE 220 MG CAPSULE PO (08:33)
[2020-08-22] MEDS: FAMOTIDINE 20 MG TABLET PO (08:33)
[2020-08-22] MEDS: guaiFENesin 12 HR 600 MG TABCR 1200 MG PO (08:33)
[2020-08-22] MEDS: ASCORBIC ACID 500 MG TABLET PO (08:34)
[2020-08-22] MEDS: CHOLECALCIFEROL 1,000 UNITS TABLET 1000 UNITS PO (08:34)
[2020-08-22] MEDS: ENOXAPARIN 40 MG/0.4 ML SYRINGE SUB-Q ×2 (08:34→21:14)
--- NOTE | 2020-08-22 11:22 | PCDIET ---
ICU Rounding Note: ICU Rounding Note: Pt current nutrition is Regular Nutrition recommendation: agree Last recorded weight is 77.7kg down from 80.6kg yesterday Bowel Motility: 08/21 BM + Labs Reviewed:Na 136, BUN 30, Albumin 3.2, Protein 6.0 Meds Noted:Lovenox, Vitamin C, Vitamin D, Zinc Additional Notes: No skin issues. No IV fluids. Has been eating well on an appropriate diet, 50% of all meals. If wt or PO intake declines, pt may be appropriate for nutrition supplements. Agree with supplementation. Following daily in ICU rounds. Assessing/reassessing q 7 days.
--- NOTE | 2020-08-22 12:25 | WPDINTPN ---
Progress Note: A&P Assessment and Plan (1) Acute respiratory failure due to COVID-19: Code(s): U07.1 - COVID-19; J96.00 - Acute respiratory failure, unspecified whether with hypoxia or hypercapnia <Iona Ford PA-C - Last Filed: 08/22/20 15:56> Status: Acute <Iona Ford PA-C - Last Filed: 08/22/20 15:56> Assessment and Plan: Acute respiratory failure secondary to COVID pneumonia. - CTA negative for pulmonary embolism. - Chest x-ray today (08/22) shows extensive bilateral acute airspace disease with mild interval progression suspected. - Lasix 40 mg IV x1 given yesterday morning with good output. Euvolemic on exam if not a bit dry. - Currently on high-flow nasal cannula with 55 L flow and 90% FiO2 in addition to 15 L non-rebreather mask. - Continue to encourage prone position as his O2 saturation and oxygen requirements are responding well to such. - Respiratory status is stable and we will continue to monitor closely. Patient okay with intubation if need be. - Continue albuterol, p.r.n. dextromethorphan, vitamin-C, vitamin-D, and zinc. Timeline: - SARS-CoV-2 PCR positive 08/12. - Dexamethasone, 10 day course completed 08/21. - Remdesivir, 5 day course completed on 08/17. - Received 1 unit of convalescent plasma 08/14. <Iona Ford PA-C - Last Filed: 08/22/20 15:56> (2) Pneumonia due to COVID-19 virus: Code(s): U07.1 - COVID-19; J12.89 - Other viral pneumonia <Iona Ford PA-C - Last Filed: 08/22/20 15:56> Status: Acute <Iona Ford PA-C - Last Filed: 08/22/20 15:56> Assessment and Plan: - Remains afebrile. White count still a bit elevated but stable. - Continue airborne, droplet, and contact isolation. - Repeat inflammatory markers in a.m. <Iona Ford PA-C - Last Filed: 08/22/20 15:56> (3) Hypertension: Qualifiers: Hypertension type: essential hypertension Qualified Code(s): I10 - Essential (primary) hypertension <Iona Ford PA-C - Last Filed: 08/22/20 15:56> Code(s): I10 - Essential (primary) hypertension <Iona Ford PA-C - Last Filed: 08/22/20 15:56> Status: Acute <Iona Ford PA-C - Last Filed: 08/22/20 15:56> Assessment and Plan: - Blood pressures were reviewed today (08/22) and they have been well controlled and are stable. - Continue to hold losartan at this time and monitor daily. <Iona Ford PA-C - Last Filed: 08/22/20 15:56> (4) Hyperglycemia: Code(s): R73.9 - Hyperglycemia, unspecified <Iona Ford PA-C - Last Filed: 08/22/20 15:56> Status: Resolved <Iona Ford PA-C - Last Filed: 08/22/20 15:56> Assessment and Plan: - Resolved, daily a.m. glucose has been well within normal limits. <Iona Ford PA-C - Last Filed: 08/22/20 15:56> Additional Plan I have seen and evaluated the patient and discussed the care with ALLI Guardado. I agree with the findings and plan as documented the note above <Estelle Tyler MD - Last Filed: 10/07/20 14:35> Subjective Date/time seen: 08/22/20 12:25 Feeling about the same today. Glad that he is able to face time with his family, but he is getting depressed due to subjective lack in improvement. Appetite has dwindled a bit which he blames on shortness of breath. Is currently sitting up in a chair but the times that he is in bed he is trying to prone himself, which has been beneficial. Reports some chills but no fever or sweats. Continues to have a hacking cough and mild sore throat. No vomiting, diarrhea, or chest pain. <Iona Ford PA-C - Last Filed: 08/22/20 15:56> Review of S
[2020-08-22 15:38] LABS: Hematocrit 39.7 % (42.0-52.0); Hemoglobin 13.3 g/dL (14.0-18.0); Mean Corpuscular HGB Conc 33.5 g/dl (32-36); Mean Corpuscular Hemoglobin 30.1 pg (26-34); Mean Corpuscular Volume 89.8 fl (80-100); Mean Platelet Volume 9.3 fl (7.4-10.4); Platelet Count Result 373 k/mm3 (150-375); Red Blood Count 4.42 M/mm3 (4.6-6.20); Red Cell Distribution Width 11.3 % (11.5-14.5)
[2020-08-22 15:55] LABS: CRP 8.4 mg/dL (<1.0)
--- NOTE | 2020-08-22 18:49 | PM.IMPN ---
Progress Note: A&P Assessment and Plan (1) Acute respiratory failure due to COVID-19: Code(s): U07.1 - COVID-19; J96.00 - Acute respiratory failure, unspecified whether with hypoxia or hypercapnia Status: Acute Assessment and Plan: Acute resp failure with hypoxia due to COVID19. Currently on HFNC and NRB mask. Patient appears to be tiring out. Will start BiPAP but may need intubation. Monitor closely. (2) Pneumonia due to COVID-19 virus: Code(s): U07.1 - COVID-19; J12.89 - Other viral pneumonia Status: Acute Assessment and Plan: Positive COVID test on 08/12. CTA performed due to increased oxygen demands/increased dyspnea; no PE identified, findings consistent with COVID pneumonia noted. Inflammatory markers elevated. Patient transferred to ICU 08/14 pm. Completed 10 days of Dexamethasone on 08/21/20. Completed 5 days of Remdesivir on 08/17/20. Convalescent plasma given 08/14. Continue supportive care of Tylenol PRN for fevers, Mucinex prn for cough, zinc, vitamin C and D. Encouraged IS use. Wean O2 as tolerated. He is williing to lie prone tonight but afraid he is too weak so will advance to BiPAP therapy (3) Hypertension: Qualifiers: Hypertension type: essential hypertension Qualified Code(s): I10 - Essential (primary) hypertension Code(s): I10 - Essential (primary) hypertension Status: Acute Assessment and Plan: Patient's blood pressure was reviewed on 08/22 Blood pressure soft at times. Losartan remains on hold (4) Hyperglycemia: Code(s): R73.9 - Hyperglycemia, unspecified Status: Resolved Assessment and Plan: A1c 4.7. Patient's glucose has been elevated due to the dexamethasone. Glucose better now that he is off the Dexamethasone. Continue AccuCheks covering with sliding scale. Hypoglycemia protocol available as needed. (5) DVT prophylaxis: Code(s): Z29.9 - Encounter for prophylactic measures, unspecified Status: Acute Assessment and Plan: Lovenox Q12h due to his body habitus and diagnosis of COVID Subjective Date/time seen: 08/22/20 18:49 Interval history: Date of service: 08/22 50yo male with HTN here for acute respiratory failure due to COVID. Feels more SOB today and more tired. Haivng trouble taking a dep breath. Was able to lie prone today and also was able to be up to the chair. Currently on 55L 87% FiO2 Exam Narrative: Exam Narrative: 00.0 107/62 76 41 92% HFNC with NRB mask Gen - tachypneic Chest - few bibasilar inspiratory crackles, distant BS CV - RRR S1/S2; Tele showing no significant dysrhythmias Abd - Soft, NT/ND, Positive BS Ext - No pedal edema Psych - calm but appears worried Skin - mild diaphoresis Objective Data Vital Signs Vital Signs: Vital Signs - 24 hr 08/21/20 19:57 08/21/20 20:00 08/21/20 22:00 Temperature 97.8 F 98.1 F Pulse Rate 82 76 80 Respiratory Rate 36 H 24 H 24 H Blood Pressure 98/57 L 114/74 Pulse Oximetry 92 92 90 08/21/20 23:51 08/22/20 00:00 08/22/20 02:00 Temperature 98.1 F 98.1 F 98.1 F Pulse Rate 71 61 Respiratory Rate 27 H 19 Blood Pressure 109/76 107/70 Pulse Oximetry 88 L 94 08/22/20 04:00 08/22/20 07:55 08/22/20 08:00 Temperature 98.0 F 99 F Pulse Rate 75 85 68 Respiratory Rate 21 H 23 H 24 H Blood Pressure 120/77 120/41 L Pulse Oximetry 96 85 L 95 08/22/20 09:29 08/22/20 10:00 08/22/20 11:02 Temperature Pulse Rate 75 79 75 Respiratory Rate 21 H 30 H 22 H Blood Pressure 109/67 Pulse Oximetry 91 91 91 08/22/20 12:00 08/22/20 14:00 08/22/20 14:48 Temperature 99.9 F H Pulse Rate 77 76 Respiratory Rate 28 H 25 H Blood Pressure 109/64 125/80 Pulse Oximetry 92 97 92 08/22/20 16:00 08/22/20 18:00 08/22/20 18:47 Temperature 100 F H Pulse
[2020-08-22] MEDS: DEXTROMETHORPHAN POLISTIREX 60 MG/10 ML SYRINGE PO (21:16)
[2020-08-22] MEDS: diphenhydrAMINE HCl CAP 25 MG CAPSULE 50 MG PO (22:07)
[2020-08-22] MEDS: ACETAMINOPHEN 325 MG TABLET 650 MG PO (22:08)
[2020-08-23] VITALS (24 sets, daily range): BP systolic 99–138; BP diastolic 66–84; PULSE 63–88; RESP 25–42; TEMP 37.1–37.7; O2SAT 89–94
--- NOTE | 2020-08-23 | ECHO_ITS ---
Patient Info Name: Immanuel Tay Age: 50 years : 1970 Gender: Male Ht: 64 in Wt: 171 lbs BSA: 1.90 m2 HR: 61 bpm BP: 119 / 76 mmHg Technical Quality: Good Exam Date: 08/23/2020 8:31 AM Exam Location: [facility] Patient Status: Inpatient Admit Date: 08/13/2020 Staff Ordering Physician: Warren Lance MD Site Reliability Engineer: Zarina Sharma RDCS Attending Provider: Jack Herrera MD Exam Type: CA echo doppler color flow Summary 1. Normal LV size, mild LVH; hyperdynamic LV systolic function, EF more than 70%; normal diastolic function. No significant valvular abnormalities seen. Unable to assess RVSP due to inadequate TR jet velocity. Sinus rhythm. Left Ventricle Left ventricular chamber dimension is normal. Left ventricular systolic function is hyperdynamic, estimated at >70%. There is mildly increased left ventricular wall thickness. The left ventricular diastolic function is normal. Right Ventricle Right ventricular chamber dimension is normal. Right ventricular systolic function is normal. Left Atria Left atrial chamber dimension is normal. Right Atria Right atrial chamber dimension is normal. Aortic Valve The aortic valve is normal. There is no aortic valve stenosis. Pulmonic Valve The pulmonic valve is normal. Mitral Valve The mitral valve has normal leaflets. There is no mitral valve regurgitation. Tricuspid Valve The tricuspid valve leaflets are normal. Pericardium/Pleural The pericardium appears normal. Aorta The aortic root size at the sinus of Valsalva is normal. Left Ventricular Outflow Tract Name Value Normal LVOT 2D LVOT Diameter 2.3 cm LVOT Doppler LVOT Peak Velocity 131 cm/s LVOT Peak Gradient 7 mmHg LVOT Mean Gradient 3 mmHg LVOT VTI 23 cm LVOT VTI/AV VTI Ratio 0.8 LVOT Stroke Volume 96 ml LVOT CO 6.1 l/min LVOT CI 3.2 l/min/m2 Pulmonic Valve Name Value Normal PV Doppler PV Peak Velocity 150 cm/s PV Peak Gradient 9 mmHg Mitral Valve Name Value Normal MV Doppler MV Decel [place] 227 cm/s2 MV PHT 84 ms MV Area (PHT) 2.6 cm2 4.0-5.0 MV Diastolic Function MV E Peak Velocity 66 cm/s
[2020-08-23 06:36] LABS: Basophils Percent Auto 0.2 % (0.2-1.2); Eosinophils Absolute Auto 0.1 K/mm3 (0-0.3); Eosinophils Percent Auto 0.5 % (0-4.4); Hematocrit 37.1 % (42.0-52.0); Hemoglobin 12.3 g/dL (14.0-18.0); Immature Granulocyte Absolute 0.22 K/mm3 (0.00-0.031); Immature Granulocyte Percent A 1.4 % (0-0.5); Lymphocytes Absolute Auto 0.67 K/mm3 (0.9-3.2); Lymphocytes Percent Auto 4.1 % (18.3-44.2); Mean Corpuscular HGB Conc 33.2 g/dl (32-36); Mean Corpuscular Hemoglobin 30.1 pg (26-34); Mean Corpuscular Volume 90.9 fl (80-100); Mean Platelet Volume 9.2 fl (7.4-10.4); Monocytes Percent Auto 6.1 % (2.6-8.5); Neutrophils Absolute Auto 14.3 K/mm3 (1.3-6.7); Neutrophils Percent Auto 87.7 % (45.5-73.1); Platelet Count Result 322 k/mm3 (150-375); Red Blood Count 4.08 M/mm3 (4.6-6.20); Red Cell Distribution Width 11.3 % (11.5-14.5); White Blood Count 16.3 K/mm3 (4.5-10.0)
[2020-08-23 06:48] LABS: D Dimer 3.63 ug/mL (<0.48)
[2020-08-23 07:00] LABS: Alanine Aminotransferase 27 U/L (4-50); Albumin Level 3.1 g/dL (3.5-5.1); Alkaline Phosphatase 118 U/L (38-126); Anion Gap 4 mmol/L (8-16); Aspartate Amino Transferase 43 U/L (17-59); Bilirubin,Total 1.2 mg/dL (0.2-1.3); Blood Urea Nitrogen 32 mg/dL (9-20); Calcium 8.5 mg/dL (8.4-10.2); Carbon Dioxide 35 mmol/L (22-30); Chloride 95 mmol/L (98-107); Estimated CRCL calculation 89 ml/min; Estimated Glomerular Filt Rate > 60; Glucose 105 mg/dL (75-110); Lactate Dehydrogenase 1411 U/L (313-618); Magnesium 2.4 mg/dL (1.6-2.3); Potassium 4.3 mmol/L (3.4-5.0); Sodium 134 mmol/L (137-145)
[2020-08-23 07:13] LABS: CRP 16.9 mg/dL (<1.0)
[2020-08-23] MEDS: ALBUTEROL SULFATE (*SP) AEROSOL 1 PUFF 2 PUFF INHALATION ×3 (09:05→16:31)
--- NOTE | 2020-08-23 09:14 | PM.IMPN ---
Progress Note: A&P Assessment and Plan (1) Acute respiratory failure due to COVID-19: Code(s): U07.1 - COVID-19; J96.00 - Acute respiratory failure, unspecified whether with hypoxia or hypercapnia Status: Acute Assessment and Plan: Acute resp failure with hypoxia due to COVID19. Currently on BiPAP now. Patient at 100%. Check ABG since bipap changes. (2) Pneumonia due to COVID-19 virus: Code(s): U07.1 - COVID-19; J12.89 - Other viral pneumonia Status: Acute Assessment and Plan: Positive COVID test on 08/12. CTA performed due to increased oxygen demands/increased dyspnea; no PE identified, findings consistent with COVID pneumonia noted. Inflammatory markers elevated. Patient transferred to ICU 11/ pm. Completed 10 days of Dexamethasone on 08/21/20. Completed 5 days of Remdesivir on 08/17/20. Convalescent plasma given 08/14. Continue supportive care using Tylenol PRN for fevers and Mucinex scheduled for cough. Encouraged IS use. Wean O2 as tolerated. Okay to stop zinc and Vitamins. Discussed with proof technician with plans to resume Dexamethasone. (3) Hypertension: Qualifiers: Hypertension type: essential hypertension Qualified Code(s): I10 - Essential (primary) hypertension Code(s): I10 - Essential (primary) hypertension Status: Acute Assessment and Plan: Patient's blood pressure was reviewed on 08/23 Blood pressure well controlled. Losartan remains on hold (4) Hyperglycemia: Code(s): R73.9 - Hyperglycemia, unspecified Status: Resolved Assessment and Plan: A1c 4.7. Patient's glucose has been elevated due to the dexamethasone. Glucose better now that he is off the Dexamethasone but now Dexa to be resumed. Continue AccuCheks covering with sliding scale. Hypoglycemia protocol available as needed. (5) DVT prophylaxis: Code(s): Z29.9 - Encounter for prophylactic measures, unspecified Status: Acute Assessment and Plan: Lovenox Q12h due to his body habitus and diagnosis of COVID Subjective Date/time seen: 08/23/20 09:14 Interval history: Date of service: 08/23 50yo male with HTN here for acute respiratory failure due to COVID. Patient required BiPAP last evening. Still feels SOB. Tolerated the BiPAP overnight. Currently on BiPAP 18/10 at 100% FiO2. He has not been desaturating with movement per RN. Exam Narrative: Exam Narrative: Tm 100.0 99.4 112/71 70 25 90% BiPAP Gen - tachypneic Chest - improved air exchange. few inspiratory bibasilar crackles. CV - RRR S1/S2; Tele showing no significant dysrhythmias Abd - Soft, NT/ND, Positive BS Ext - No pedal edema Psych -nml mood Skin - warm and dry Objective Data Vital Signs Vital Signs: Vital Signs - 24 hr 08/22/20 09:29 08/22/20 10:00 08/22/20 11:02 Temperature Pulse Rate 75 79 75 Respiratory Rate 21 H 30 H 22 H Blood Pressure 109/67 Pulse Oximetry 91 91 91 08/22/20 12:00 08/22/20 14:00 08/22/20 14:48 Temperature 99.9 F H Pulse Rate 77 76 Respiratory Rate 28 H 25 H Blood Pressure 109/64 125/80 Pulse Oximetry 92 97 92 08/22/20 16:00 08/22/20 18:00 08/22/20 18:47 Temperature 100 F H Pulse Rate 75 76 76 Respiratory Rate 28 H 31 H 41 H Blood Pressure 105/56 L 107/62 Pulse Oximetry 92 86 L 92 08/22/20 20:00 08/22/20 20:01 08/22/20 21:56 Temperature 99.9 F H Pulse Rate 72 79 75 Respiratory Rate 29 H 35 H Blood Pressure 123/75 Pulse Oximetry 89 L 91 08/22/20 22:00 08/22/20 22:15 08/23/20 00:00 Temperature Pulse Rate 76 76 82 Respiratory Rate 34 H Blood Pressure 121/103 H Pulse Oximetry 92 08/23/20 00:01 08/23/20 02:00 08/23/20 02:01 Temperature 99.1 F Pulse Rate 76 63 63 Respiratory Rate 33 H 25 H Blood Pressure 138/73 113/72 Pulse Oximetry 93 91 08/23/20 02:35 08/23/20 04:00 08/23/20 04:01 Temperature 99.4 F Pulse Rate 64 68 72 Respiratory Rate 29 H
--- NOTE | 2020-08-23 09:17 | PCPTNOTE ---
PT held today. Patient placed on continuous BIPAP during the night due to decreased O2. PT will continue to follow per plan of care.
[2020-08-23] MEDS: ENOXAPARIN 40 MG/0.4 ML SYRINGE SUB-Q ×2 (10:16→21:40)
[2020-08-23] MEDS: DEXAMETHASONE SOD PHOS INJ 4 MG/ML VIAL 6 MG IV PUSH (10:16)
--- NOTE | 2020-08-23 10:37 | WPDINTPN ---
Progress Note: A&P Assessment and Plan (1) Acute respiratory failure due to COVID-19: Code(s): U07.1 - COVID-19; J96.00 - Acute respiratory failure, unspecified whether with hypoxia or hypercapnia Status: Acute Assessment and Plan: Acute Respiratory failure secondary to COVID-19 pneumonia - CTA negative for PE. It did show bilateral extensive ground-glass opacities - chest x-ray Shows diffuse lung disease, consistent with pneumonia versus pulmonary edema versus acute respiratory distress syndrome (ARDS). chest x-ray with some improvement. - He is currently on BiPAP with IPAP of 20 and EPAP of 10. He has mild tachypnea but not in distress. He will be given few hours of break later in the afternoon and will be put on high-flow oxygen with 60 L and 90% FiO2. Wean oxygen if tolerated. Arterial blood gases has been order for today. If there is any evidence of hypercapnia then he would need to be intubated because that will be evidence of his respiratory fatigue. - I encouraged him to continue to try laying in prone position as much as possible as patient definitely benefits with increase in oxygen saturation and decrease in oxygen requirement - He still may need intubation and he is agreeable to it if needed. - SARS-CoV-2 PCR positive 08/12 - Dexamethasone initiated on 08/12 And has completed 10 day course yesterday but I will resume it again because of his very tenuous respiratory status. - Remdesivir completed on 08/17 - Received 1 unit of convalescent plasma 08/14 - albuterol, p.r.n. dextromethorphan - appears euvolemic at this time. Lasix on p.r.n. basis based on his fluid status. (2) Pneumonia due to COVID-19 virus: Code(s): U07.1 - COVID-19; J12.89 - Other viral pneumonia Status: Acute Assessment and Plan: Patient is in Airborne, Droplet and Contact Isolation -Continue monitoring inflammatory markers which are improving. Chest x-ray with some improvement in bilateral airspace disease. Will check procalcitonin level in a.m. low threshold for initiating antibiotics if there is any evidence of secondary bacterial infection. (3) Hypertension: Qualifiers: Hypertension type: essential hypertension Qualified Code(s): I10 - Essential (primary) hypertension Code(s): I10 - Essential (primary) hypertension Status: Acute Assessment and Plan: Blood pressure is in normal range will treat p.r.n. His home medication losartan has been on hold. I will order echocardiogram to rule out any cardiomyopathy secondary to COVID infection. (4) Hyperglycemia: Code(s): R73.9 - Hyperglycemia, unspecified Status: Resolved Assessment and Plan: much improvement sliding-scale insulin and Accu-Cheks Additional Plan Diet: Will keep him NPO is he is on BiPAP and his respiratory status is very tenuous and may need intubation. SUP- Pepcid DVT prophylaxis: Lovenox 40 mg b.i.d. for COVID-19 Code status: Full code Total Critical Care Time - 32 minutes Due to a high probability of clinically significant, life threatening deterioration, the patient required my highest level of preparedness to intervene emergently and I personally spent this critical care time directly and personally managing the patient. This critical care time included obtaining a history; examining the patient; pulse oximetry; ordering and review of studies; arranging urgent treatment with development of a management plan; evaluation of patient's response to treatment; frequent reassessment; and discussions with other providers. It was exclusive of separately billable procedures and treating other patients and teaching time. Please see Assessment and Plan section and the rest of the note for further information on patient assessment and treatment Subjective Date/time seen: 08/23/20 10:37 He was on high-flow oxygen but has been transitioned to BiPAP overnight for incre
[2020-08-23 12:04] LABS: Alveolar/Arterial O2 Gradient 605.8 mmHg; Base Excess ABG 5.7 mEq/l (+/-2.0); Fractional Inspired Oxygen 100 %; HCO3 ABG 31.3 mEq/l (22.0-26.0); Oxygen Content ABG 16.2 %vol (16.0-22.0); Oxyhemoglobin 89.1 % THb (90.0-100.0); PCO2 ABG 49.7 mmHg (35.0-45.0); PO2 ABG 57.5 mmHg (80.0-100.0); PO2 FiO2 Ratio Arterial Blood 0.57 %; Total Hemoglobin 12.9 g/dL (12.0-18.0); pH ABG 7.417 (7.350-7.450)
[2020-08-23 12:05] LABS: Device NON-INVASIVE VENT; Non-Invasive Expiratory Pressure 10 CMH2O; Non-Invasive Inspiratory Pressure 18 CMH2O; Non-Invasive Vent Rate 4 /MIN; Site Drawn LEFT BRACHIAL
[2020-08-23] MEDS: guaiFENesin 12 HR 600 MG TABCR 1200 MG PO ×2 (13:36→21:41)
[2020-08-23] MEDS: FAMOTIDINE 20 MG TABLET PO ×2 (13:36→21:42)
[2020-08-23] MEDS: SALINE 0.65% NAS SOLN 44 ML BTL 1 SPRAY NASAL (16:46)
[2020-08-23] MEDS: DEXTROMETHORPHAN POLISTIREX 60 MG/10 ML SYRINGE PO (21:41)
[2020-08-23] MEDS: ACETAMINOPHEN 325 MG TABLET 650 MG PO (21:41)
[2020-08-23] MEDS: MELATONIN 3 MG TABLET PO (21:41)
[2020-08-24] VITALS (21 sets, daily range): BP systolic 98–121; BP diastolic 62–78; PULSE 56–81; RESP 20–42; TEMP 36.4–36.9; O2SAT 86–98
[2020-08-24 06:02] LABS: Alveolar/Arterial O2 Gradient 584.6 mmHg; Base Excess ABG 4.7 mEq/l (+/-2.0); Carboxyhemoglobin 1.1 % THb (0-2.0); Fractional Inspired Oxygen 100 %; HCO3 ABG 31.1 mEq/l (22.0-26.0); Methemoglobin ABG 0.3 %THb (0-1.5); Oxygen Content ABG 18.9 %vol (16.0-22.0); Oxygen Saturation ABG 94.7 % (95.0-100.0); Oxyhemoglobin 92.2 % THb (90.0-100.0); PCO2 ABG 53.3 mmHg (35.0-45.0); PO2 ABG 75.1 mmHg (80.0-100.0); PO2 FiO2 Ratio Arterial Blood 0.75 %; Reduced Hemoglobin 6.4 %THb (0-5.0); Total Hemoglobin 14.6 g/dL (12.0-18.0); pH ABG 7.384 (7.350-7.450)
[2020-08-24 06:03] LABS: Modified Allen's Test Pass; Site Drawn RIGHT RADIAL
[2020-08-24 06:04] LABS: Device BIPAP
[2020-08-24 07:50] LABS: Hematocrit 36.6 % (42.0-52.0); Hemoglobin 12.1 g/dL (14.0-18.0); Mean Corpuscular HGB Conc 33.1 g/dl (32-36); Mean Corpuscular Hemoglobin 30.3 pg (26-34); Mean Corpuscular Volume 91.5 fl (80-100); Mean Platelet Volume 9.4 fl (7.4-10.4); Platelet Count Result 301 k/mm3 (150-375); Red Cell Distribution Width 11.2 % (11.5-14.5); White Blood Count 18.2 K/mm3 (4.5-10.0)
[2020-08-24] MEDS: DEXAMETHASONE SOD PHOS INJ 4 MG/ML VIAL 6 MG IV PUSH (07:55)
[2020-08-24] MEDS: ENOXAPARIN 40 MG/0.4 ML SYRINGE SUB-Q ×2 (07:55→20:50)
[2020-08-24 08:18] LABS: Alanine Aminotransferase 26 U/L (4-50); Albumin Level 3.2 g/dL (3.5-5.1); Alkaline Phosphatase 107 U/L (38-126); Anion Gap 5 mmol/L (8-16); Aspartate Amino Transferase 33 U/L (17-59); Bilirubin,Total 0.8 mg/dL (0.2-1.3); Blood Urea Nitrogen 35 mg/dL (9-20); Calcium 8.5 mg/dL (8.4-10.2); Carbon Dioxide 36 mmol/L (22-30); Chloride 96 mmol/L (98-107); Estimated CRCL calculation 79 ml/min; Estimated Glomerular Filt Rate > 60; Glucose 105 mg/dL (75-110); Magnesium 2.4 mg/dL (1.6-2.3); Potassium 4.3 mmol/L (3.4-5.0); Sodium 137 mmol/L (137-145)
[2020-08-24] MEDS: ALBUTEROL SULFATE (*SP) AEROSOL 1 PUFF 2 PUFF INHALATION (09:05)
--- NOTE | 2020-08-24 09:30 | WPDINTPN ---
Progress Note: A&P Assessment and Plan (1) Acute respiratory failure due to COVID-19: Code(s): U07.1 - COVID-19; J96.00 - Acute respiratory failure, unspecified whether with hypoxia or hypercapnia Status: Acute Assessment and Plan: Acute resp failure with hypoxia due to COVID19 positive 08/12 chest x-ray today Diffuse lung disease with interval worsening, consistent with pneumonia and/or pulmonary edema and/or acute respiratory distress syndrome (ARDS). patient on bipap overnight currently on high flow with sat's in the 90 and tolerating continue dexamethasone ,Remdesivir completed 08/17, received 1 unit of convalescent plasma 08/14 continue albuterol Continue Lasix p.r.n. (2) Pneumonia due to COVID-19 virus: Code(s): U07.1 - COVID-19; J12.89 - Other viral pneumonia Status: Acute Assessment and Plan: CTA 08/14 , no PE indicated, ddimer 3.63 on 08/23 possible secondary to infection cxr 08/24 indicate Diffuse lung disease with interval worsening, consistent with pneumonia and/or pulmonary edema and/or acute respiratory distress syndrome (ARDS). patient currently on high flow and tolerating Continue albuterol, guaifenesin and dextromethorphan (3) Hypertension: Qualifiers: Hypertension type: essential hypertension Qualified Code(s): I10 - Essential (primary) hypertension Code(s): I10 - Essential (primary) hypertension Status: Acute Assessment and Plan: blood pressure soft 109/73 continue to hold Losartan . Will resume when appropriate (4) Hyperglycemia: Code(s): R73.9 - Hyperglycemia, unspecified Status: Resolved Assessment and Plan: A1c 4.7. glucose 105 will closely monitor blood sugar with the use of dextromethorphan, will start sliding scale if needed . (5) DVT prophylaxis: Code(s): Z29.9 - Encounter for prophylactic measures, unspecified Status: Acute Assessment and Plan: Lovenox Q12h due to his body habitus and diagnosis of COVID Additional Plan Diet: Heart healthy DVT prophylaxis: Lovenox 40 mg b.i.d. for COVID-19 Code status: Full code Disposition: Observation, pending clinical course Subjective Date/time seen: 08/24/20 09:30complains of chest discomfort with cough, currently on high flow and tolerating. Will attempt to advance diet if patient can tolerate. stable for now. Interval history: A 50-year-old male with past medical history of hypertension and diabetes mellitus now here with acute hypoxic respiratory failure secondary to COVID pneumonia. Review of Systems Review of Systems: All systems reviewed & are unremarkable except as noted in HPI and below (10 point system reviewed) Exam Narrative: Exam Narrative: General: Alert and orientated, sitting up in bed in comfortable HEENT: Normocephalic, atraumatic. PERRL, EOMI. Sclerae anicteric. Oral mucosa moist. Oropharynx clear. Neck: Supple. Respiratory: Diminished breath sounds with crackles and tachypnea Cardiovascular: Regular rate and rhythm with S1-S2. Gastrointestinal: Abdomen is soft, nontender, and nondistended with positive bowel sounds. No organomegaly. Skin: Warm, dry, . No rash or lesions on limited exam. Extremities: No cyanosis, clubbing, trace of edema to lower extremities Radial and pedal pulses intact. . Urinary Catheter: Urinary Catheter: patent and draining and urine clear Objective Data Vital Signs Vital Signs: Vital Signs - 24 hr 08/23/20 10:00 08/23/20 11:50 08/23/20 12:00 Temperature 99.2 F Pulse Rate 76 84 88 Respiratory Rate 28 H 39 H 28 H Blood Pressure 119/76 129/80 Pulse Oximetry 93 94 92 08/23/20 13:22 08/23/20 13:45 08/23/20 13:50 Temperature Pulse Rate 88 79 Respiratory Rate 36 H 38 H Blood Pressure 127/77 Pulse Oximetry 94 91 92 08/23/20 16:00 08/23/20 16:30 08/23/20 18:00 Temperature 98.8 F Pulse Rate 71 70 Respiratory Rate
--- NOTE | 2020-08-24 10:17 | PM.IMPN ---
Progress Note: A&P Assessment and Plan (1) Acute respiratory failure due to COVID-19: Code(s): U07.1 - COVID-19; J96.00 - Acute respiratory failure, unspecified whether with hypoxia or hypercapnia Status: Acute Assessment and Plan: Acute resp failure with hypoxia due to COVID19. Currently on BiPAP now. Patient at 100%. Check ABG since bipap changes. (2) Pneumonia due to COVID-19 virus: Code(s): U07.1 - COVID-19; J12.89 - Other viral pneumonia Status: Acute Assessment and Plan: Positive COVID test on 08/12. CTA performed due to increased oxygen demands/increased dyspnea; no PE identified, findings consistent with COVID pneumonia noted. Inflammatory markers elevated. Patient transferred to ICU 11/ pm. Completed 10 days of Dexamethasone on 08/21/20. Completed 5 days of Remdesivir on 08/17/20. Convalescent plasma given 08/14. Dexamethasone resumed on 08/23. Continue supportive care using Tylenol PRN for fevers and Mucinex scheduled for cough. Encouraged IS use. Wean O2 as tolerated. May need Dobhoff for nutrition but not sure he could tolerate placement. (3) Hypertension: Qualifiers: Hypertension type: essential hypertension Qualified Code(s): I10 - Essential (primary) hypertension Code(s): I10 - Essential (primary) hypertension Status: Acute Assessment and Plan: Patient's blood pressure was reviewed on 08/24 Blood pressure well controlled. Losartan remains on hold (4) Hyperglycemia: Code(s): R73.9 - Hyperglycemia, unspecified Status: Resolved Assessment and Plan: A1c 4.7. Patient's glucose has been elevated due to the dexamethasone. Glucose improved whenhe was off the Dexamethasone but now Dexa was resumed 08/23/20 for 2nd round Day 11/19. Continue AccuCheks covering with sliding scale. Hypoglycemia protocol available as needed. (5) DVT prophylaxis: Code(s): Z29.9 - Encounter for prophylactic measures, unspecified Status: Acute Assessment and Plan: Lovenox Q12h due to his body habitus and diagnosis of COVID Subjective Date/time seen: 08/24/20 10:17 Interval history: Date of service: 08/24 50yo male with HTN here for acute respiratory failure due to COVID. Patient worse the biPAP overnight but changed to HFNC/NRB this morning. He has CP with cough. Tolerating sips with being off the bipap only briefly. No n/v. No diarrhea. Still with dry cough. BiPAP causing dry mouth. Hungry. Exam Narrative: Exam Narrative: AF 98.0 109/73 73 36 90% BiPAP Gen - tachypneic Chest - poor air exchange with inspiratory crackles anteriorly. Increased RR. CV - RRR S1/S2; Tele showing no significant dysrhythmias Abd - Soft, NT/ND, Positive BS Ext - No pedal edema, 2+ DP bilaterally Psych -nml mood Skin - warm and dry Objective Data Vital Signs Vital Signs: Vital Signs - 24 hr 08/23/20 11:50 08/23/20 12:00 08/23/20 13:22 Temperature 99.2 F Pulse Rate 84 88 88 Respiratory Rate 39 H 28 H 36 H Blood Pressure 129/80 Pulse Oximetry 94 92 94 08/23/20 13:45 08/23/20 13:50 08/23/20 16:00 Temperature 98.8 F Pulse Rate 79 71 Respiratory Rate 38 H 30 H Blood Pressure 127/77 100/67 Pulse Oximetry 91 92 92 08/23/20 16:30 08/23/20 18:00 08/23/20 20:00 Temperature 99.1 F Pulse Rate 70 65 Respiratory Rate 28 H 33 H Blood Pressure 110/72 104/66 Pulse Oximetry 94 94 93 08/23/20 21:22 08/23/20 21:24 08/23/20 22:00 Temperature Pulse Rate 71 67 67 Respiratory Rate 25 H 30 H 31 H Blood Pressure 99/72 L Pulse Oximetry 92 93 92 08/24/20 00:00 08/24/20 02:00 08/24/20 03:14 Temperature 97.9 F Pulse Rate 56 L 78 64 Respiratory Rate 20 37 H 20 Blood Pressure 98/66 L 121/78 Pulse Oximetry 94 89 L 94 08/24/20 04:00 08/24/20 05:42 08/24/20 06:00 Temperature 97.8 F Pulse Rate 65 69 65 Respiratory Rate 24 H 36 H 37 H Blood Pressure 102/68 119/69 Pulse O
--- NOTE | 2020-08-24 11:52 | PCPTNOTE ---
Order received to Hold PT services due to change in medical status.
[2020-08-24] MEDS: LIDOCAINE HCL 1% PF INJ 5 ML VIAL INFILTRATE (12:00)
[2020-08-24] MEDS: LACTATED RINGERS 1,000 ML 75 ML IV CONT (12:35)
[2020-08-24] MEDS: ALBUTEROL SULFATE NEB 2.5 MG/0.5 ML INH 5 MG INHALATION ×2 (15:07→21:15)
[2020-08-24] MEDS: guaiFENesin 12 HR 600 MG TABCR 1200 MG PO (20:50)
[2020-08-24] MEDS: MELATONIN 3 MG TABLET PO (20:50)
[2020-08-24] MEDS: DEXTROMETHORPHAN POLISTIREX 60 MG/10 ML SYRINGE PO (20:50)
[2020-08-24] MEDS: ACETAMINOPHEN 325 MG TABLET 650 MG PO (20:50)
[2020-08-24] MEDS: FAMOTIDINE 20 MG TABLET PO (20:52)
[2020-08-24] MEDS: CENTRAL LINE FLUSH 10 ML IV PUSH (20:52)
[2020-08-25] VITALS (47 sets, daily range): BP systolic 81–138; BP diastolic 57–81; PULSE 42–112; RESP 20–47; TEMP 36–36.9; O2SAT 88–100; BMI 29.1
[2020-08-25] MEDS: LACTATED RINGERS 1,000 ML 75 ML IV CONT ×2 (00:55→15:23)
[2020-08-25] MEDS: ALBUTEROL SULFATE NEB 2.5 MG/0.5 ML INH 5 MG INHALATION ×4 (02:56→21:43)
[2020-08-25 04:18] LABS: Hematocrit 35.5 % (42.0-52.0); Hemoglobin 11.6 g/dL (14.0-18.0); Mean Corpuscular HGB Conc 32.7 g/dl (32-36); Mean Corpuscular Hemoglobin 29.7 pg (26-34); Mean Platelet Volume 9.4 fl (7.4-10.4); Platelet Count Result 303 k/mm3 (150-375); Red Cell Distribution Width 11.2 % (11.5-14.5); White Blood Count 18.7 K/mm3 (4.5-10.0)
[2020-08-25 04:25] LABS: Alveolar/Arterial O2 Gradient 600.2 mmHg; Base Excess ABG 5.2 mEq/l (+/-2.0); Carboxyhemoglobin 0.5 % THb (0-2.0); Fractional Inspired Oxygen 100 %; HCO3 ABG 31.4 mEq/l (22.0-26.0); Methemoglobin ABG 0.3 %THb (0-1.5); Oxygen Content ABG 14.8 %vol (16.0-22.0); Oxygen Saturation ABG 89.9 % (95.0-100.0); Oxyhemoglobin 88.3 % THb (90.0-100.0); PCO2 ABG 53.6 mmHg (35.0-45.0); PO2 ABG 59.2 mmHg (80.0-100.0); PO2 FiO2 Ratio Arterial Blood 0.59 %; Reduced Hemoglobin 10.9 %THb (0-5.0); Total Hemoglobin 11.9 g/dL (12.0-18.0); pH ABG 7.386 (7.350-7.450)
[2020-08-25 04:26] LABS: Device BIPAP; Modified Allen's Test Pass; Site Drawn LEFT RADIAL
[2020-08-25 04:27] LABS: Expiratory Pressure 10 cmH2O; Inspiratory Pressure 18 cmH2O
[2020-08-25 04:30] LABS: Alanine Aminotransferase 25 U/L (4-50); Albumin Level 2.9 g/dL (3.5-5.1); Alkaline Phosphatase 107 U/L (38-126); Anion Gap 4 mmol/L (8-16); Aspartate Amino Transferase 30 U/L (17-59); Blood Urea Nitrogen 35 mg/dL (9-20); CRP 5.3 mg/dL (<1.0); Calcium 8.5 mg/dL (8.4-10.2); Carbon Dioxide 34 mmol/L (22-30); Chloride 99 mmol/L (98-107); Estimated CRCL calculation 79 ml/min; Estimated Glomerular Filt Rate > 60; Glucose 96 mg/dL (75-110); Lactate Dehydrogenase 972 U/L (313-618); Magnesium 2.5 mg/dL (1.6-2.3); Phosphorus 4.2 mg/dL (2.5-4.5); Potassium 4.7 mmol/L (3.4-5.0); Sodium 137 mmol/L (137-145)
[2020-08-25 04:42] LABS: D Dimer 2.52 ug/mL (<0.48)
[2020-08-25] MEDS: CENTRAL LINE FLUSH 10 ML IV PUSH ×3 (05:00→20:27)
--- NOTE | 2020-08-25 06:30 | ECG_ITS ---
Measurements Intervals [place] Rate: 105 P: DE: 0 QRS: 22 QRSD: 90 T: -14 QT: 318 QTc: 422 Interpretive Statements ATRIAL FIBRILLATION WITH RAPID VENTRICULAR RESPONSE BORDERLINE ST-T WAVE ABNORMALITY- INFERIOR LEADS BASELINE ARTIFACT- II, III, AVF ABNORMAL ECG Electronically Signed On 08-25-2020 11:25:27 TEST BORE HELPER by José Hodge D.O.
[2020-08-25] MEDS: DEXAMETHASONE SOD PHOS INJ 4 MG/ML VIAL 6 MG IV PUSH (09:08)
[2020-08-25] MEDS: ENOXAPARIN 40 MG/0.4 ML SYRINGE SUB-Q ×2 (09:08→20:27)
[2020-08-25] MEDS: ROCURONIUM BROMIDE 50 MG/5 ML VIAL (11:45)
[2020-08-25] MEDS: FENTANYL 2,500MCG/NS250ML(*CRX 2,500 MCG/250 ML BAG 20 MCG IV CONT (11:45)
[2020-08-25] MEDS: ROCURONIUM BROMIDE 50 MG/5 ML VIAL IV PUSH (12:37)
--- NOTE | 2020-08-25 13:17 | WPDINTPN ---
Progress Note: A&P Assessment and Plan (1) Acute respiratory failure due to COVID-19: Code(s): U07.1 - COVID-19; J96.00 - Acute respiratory failure, unspecified whether with hypoxia or hypercapnia Status: Acute Assessment and Plan: Acute Respiratory failure secondary to COVID-19 pneumonia - CTA negative for PE. It did show bilateral extensive ground-glass opacities - chest x-ray Shows diffuse lung disease, consistent with pneumonia versus pulmonary edema versus acute respiratory distress syndrome (ARDS). chest x-ray with some improvement. - patient has been on BiPAP 27/07, 100% FiO2. patient tachypneic in the 40s to 50s. Patient with impending respiratory failure respiratory muscle fatigue - intubated on 08/25/2020 - continue albuterol - appears euvolemic at this time. Lasix on p.r.n. basis based on his fluid status. (2) Pneumonia due to COVID-19 virus: Code(s): U07.1 - COVID-19; J12.89 - Other viral pneumonia Status: Acute Assessment and Plan: - SARS-CoV-2 PCR positive 08/12 - Dexamethasone initiated on 08/12 And has completed 10 day course yesterday but I will resume it again because of his very tenuous respiratory status. - Remdesivir completed on 08/17 - Received 1 unit of convalescent plasma 08/14 - Patient is in Airborne, Droplet and Contact Isolation - inflammatory markers are worsening, continue to monitor - will start patient on vitamin-D, vitamin-C and zinc (3) Hypertension: Qualifiers: Hypertension type: essential hypertension Qualified Code(s): I10 - Essential (primary) hypertension Code(s): I10 - Essential (primary) hypertension Status: Acute Assessment and Plan: Blood pressure is in normal range will treat p.r.n. His home medication losartan has been on hold. echocardiogram done on 08/23/2020 showed EF of 70%, LVH, LV diastolic function is normal, no significant valvular abnormalities (4) Hyperglycemia: Code(s): R73.9 - Hyperglycemia, unspecified Status: Resolved Assessment and Plan: much improvement sliding-scale insulin and Accu-Cheks Additional Plan Diet: hold tube feeds for today, SUP- Pepcid DVT prophylaxis: Lovenox 40 mg b.i.d. for COVID-19 Code status: Full code Total Critical Care Time - 39 minutes Due to a high probability of clinically significant, life threatening deterioration, the patient required my highest level of preparedness to intervene emergently and I personally spent this critical care time directly and personally managing the patient. This critical care time included obtaining a history; examining the patient; pulse oximetry; ordering and review of studies; arranging urgent treatment with development of a management plan; evaluation of patient's response to treatment; frequent reassessment; and discussions with other providers. It was exclusive of separately billable procedures and treating other patients and teaching time. Please see Assessment and Plan section and the rest of the note for further information on patient assessment and treatment Subjective Date/time seen: 08/25/20 13:17 Interval history: A 50-year-old male with past medical history of hypertension and diabetes mellitus now here with acute hypoxic respiratory failure secondary to COVID pneumonia. 08/25/2020: Patient seen and examined the ICU, remains on BiPAP 18/10, 8% FiO2. Patient is breathing 43-55 times a minute. States he is getting a little tired, oxygenation has been adequate, patient was in prone position overnight. Patient seems to be impending respiratory failure, after discussing with the patient he was agreeable to intubation. Patient was intubated. Intubation was uneventful. patient has been requiring significant amount of sedation, despite which he is dyssynchronous, Nimbex was started. Review of Systems Review of Systems: ROS unobtainable: Yes unobtainable due to endotracheal tube
--- NOTE | 2020-08-25 13:43 | WPDPROCEDUR ---
Procedures Intubation Intubation Date: 08/25/20 A pre-procedural Time-Out was completed immediately before starting the procedure and confirmed: Patient Identification, Site, Procedure, Patient Position and the Availability of Requisite Equipment: Yes Sedative: etomidate Paralytic: rocuronium Laryngoscope: fiber optic video scope Assist device used: fiber optic device ET tube size: 8 Tube secured depth (cm): 23 Tube secured location: lips Tube placement confirmation: visualized tube passing through cords, equal breath sounds bilaterally, no breath sounds over epigastrium and confirmation by capnometry Patient tolerated procedure: well Intubation complications: none
[2020-08-25 13:46] LABS: Alveolar/Arterial O2 Gradient 535.1 mmHg; Base Excess ABG 4.7 mEq/l (+/-2.0); Carboxyhemoglobin 0.2 % THb (0-2.0); Fractional Inspired Oxygen 100 %; HCO3 ABG 31.5 mEq/l (22.0-26.0); Methemoglobin ABG 0.2 %THb (0-1.5); Oxygen Content ABG 17.4 %vol (16.0-22.0); Oxygen Saturation ABG 98.2 % (95.0-100.0); PCO2 ABG 56.3 mmHg (35.0-45.0); PO2 ABG 121.6 mmHg (80.0-100.0); PO2 FiO2 Ratio Arterial Blood 1.22 %; Reduced Hemoglobin 2.6 %THb (0-5.0); Total Hemoglobin 12.6 g/dL (12.0-18.0); pH ABG 7.365 (7.350-7.450)
[2020-08-25 13:49] LABS: Arterial Blood Gas PEEP 12 cmH2O; Arterial Blood Gas Tidal Volume 350 ml; Arterial Blood Gas Vent Mode CMV; Arterial Blood Gas Ventilator rate 34 /MIN; Device VENTILATOR; Modified Allen's Test Pass; Site Drawn LEFT RADIAL
[2020-08-25 14:08] LABS: Procalcitonin 0.11 ng/mL (<0.10)
[2020-08-25] MEDS: CISATRACURIUM BESYLATE 20 MG/10 ML VIAL 11.6 MG IV PUSH (14:13)
[2020-08-25] MEDS: FAMOTIDINE 20 MG/2 ML VIAL IV PUSH (20:27)
[2020-08-26] VITALS (52 sets, daily range): BP systolic 81–130; BP diastolic 48–81; PULSE 47–80; RESP 34–40; TEMP 36.2–36.9; O2SAT 88–99
[2020-08-26] MEDS: SODIUM CHLORIDE 0.9% IV 500 ML 999 ML IV CONT (00:25)
[2020-08-26] MEDS: SODIUM CHLORIDE 0.9% IV 1,000 ML 75 ML IV CONT ×2 (00:26→15:13)
[2020-08-26] MEDS: ALBUTEROL SULFATE NEB 2.5 MG/0.5 ML INH 5 MG INHALATION ×4 (03:09→19:28)
--- NOTE | 2020-08-26 03:15 | PC.NURSE ---
Per jeannie RN ok to keep versed at 8 mg/hr per Dr. Tyler.
[2020-08-26 04:19] LABS: Alveolar/Arterial O2 Gradient 575.6 mmHg; Base Excess ABG 3.7 mEq/l (+/-2.0); Carboxyhemoglobin 0.4 % THb (0-2.0); Fractional Inspired Oxygen 100 %; Methemoglobin ABG 0.3 %THb (0-1.5); Oxygen Content ABG 15.4 %vol (16.0-22.0); Oxygen Saturation ABG 91.5 % (95.0-100.0); Oxyhemoglobin 90.1 % THb (90.0-100.0); PO2 ABG 69.7 mmHg (80.0-100.0); Reduced Hemoglobin 9.2 %THb (0-5.0); Total Hemoglobin 12.1 g/dL (12.0-18.0); pH ABG 7.292 (7.350-7.450)
[2020-08-26 04:21] LABS: PCO2 ABG 67.7 mmHg (35.0-45.0)
[2020-08-26 04:22] LABS: Arterial Blood Gas Vent Mode CMV; Arterial Blood Gas Ventilator rate 34 /MIN; Device VENTILATOR; Modified Allen's Test Pass; Site Drawn RIGHT RADIAL
[2020-08-26 04:23] LABS: Arterial Blood Gas PEEP 10 cmH2O; Arterial Blood Gas Tidal Volume 350 ml
[2020-08-26] MEDS: FENTANYL 2,500MCG/NS250ML(*CRX 2,500 MCG/250 ML BAG 15 MCG IV CONT ×2 (05:04→21:48)
[2020-08-26] MEDS: CENTRAL LINE FLUSH 10 ML IV PUSH ×3 (05:13→21:52)
[2020-08-26 05:45] LABS: Hematocrit 33.9 % (42.0-52.0); Hemoglobin 11.1 g/dL (14.0-18.0); Mean Corpuscular HGB Conc 32.7 g/dl (32-36); Mean Corpuscular Hemoglobin 30.5 pg (26-34); Mean Corpuscular Volume 93.1 fl (80-100); Mean Platelet Volume 9.3 fl (7.4-10.4); Platelet Count Result 265 k/mm3 (150-375); Red Blood Count 3.64 M/mm3 (4.6-6.20); Red Cell Distribution Width 11.2 % (11.5-14.5); White Blood Count 16.2 K/mm3 (4.5-10.0)
[2020-08-26 06:01] LABS: Alanine Aminotransferase 23 U/L (4-50); Albumin Level 2.7 g/dL (3.5-5.1); Alkaline Phosphatase 85 U/L (38-126); Anion Gap 4 mmol/L (8-16); Aspartate Amino Transferase 25 U/L (17-59); Bilirubin,Total 0.5 mg/dL (0.2-1.3); Blood Urea Nitrogen 33 mg/dL (9-20); Calcium 8.1 mg/dL (8.4-10.2); Carbon Dioxide 34 mmol/L (22-30); Chloride 100 mmol/L (98-107); Estimated CRCL calculation 89 ml/min; Estimated Glomerular Filt Rate > 60; Glucose 112 mg/dL (75-110); Magnesium 2.5 mg/dL (1.6-2.3); Phosphorus 4.4 mg/dL (2.5-4.5); Potassium 4.4 mmol/L (3.4-5.0); Sodium 138 mmol/L (137-145)
[2020-08-26] MEDS: SODIUM CHLORIDE 0.9% IV 1,000 ML 999 ML IV CONT (07:42)
[2020-08-26] MEDS: DEXAMETHASONE SOD PHOS INJ 4 MG/ML VIAL 6 MG IV PUSH (08:27)
[2020-08-26] MEDS: ENOXAPARIN 40 MG/0.4 ML SYRINGE SUB-Q ×2 (08:27→20:04)
[2020-08-26] MEDS: ASCORBIC ACID 500 MG TABLET FEED TUBE (08:28)
[2020-08-26] MEDS: ZINC SULFATE 220 MG CAPSULE FEED TUBE (08:28)
[2020-08-26] MEDS: FAMOTIDINE 20 MG/2 ML VIAL IV PUSH ×2 (08:28→20:05)
[2020-08-26] MEDS: CHOLECALCIFEROL 1,000 UNITS TABLET 1000 UNITS FEED TUBE (08:28)
--- NOTE | 2020-08-26 11:29 | PCDIET ---
Nutrition Follow-Up Complete: Nutrition Diagnosis: Inadequate oral intake related to oral intubation as evidenced by NPO status. Nutrition Goal: Patient to meet estimated nutritional needs. Goal in progress. Patient currently on NG tube feedings: Vital 1.2 at 20mL/hr with no reported issues. Recommend keeping tube feeding at this rate for now due to high O2 requirements and anticipated prone positioning later today. Last recorded weight is 79 kg which is increased from last review. +I/O. Bowel Motility: Last documented BM on 08/25/20. Labs Reviewed: Hgb (11.1), Hct (33.9), Glu (112), BUN (3.3), Mg (2.5), Alb (2.7), Jorge Ca (9.14) Meds Noted: Albuterol, Vitamin C, Nimbex, Dexamethasone, Versed, Vitamin D, Zinc Sulfate Additional Notes: Nose abrasion documented. No pressure sores. Will continue to monitor with same goal. Nutrition Monitoring and Evaluation: Follow up every Tuesday/Tuesday. Follow daily in ICU rounds.
--- NOTE | 2020-08-26 11:30 | WPDINTPN ---
Progress Note: A&P Assessment and Plan (1) Shock: Code(s): R57.9 - Shock, unspecified <Iona Reshma KAVYA Ford - Last Filed: 08/26/20 15:35> Status: Acute <Iona Justice LUDWIN FordC - Last Filed: 08/26/20 15:35> (2) Acute respiratory failure due to COVID-19: Code(s): U07.1 - COVID-19; J96.00 - Acute respiratory failure, unspecified whether with hypoxia or hypercapnia <Iona FrancaLUDWIN ThapaC - Last Filed: 08/26/20 15:35> Status: Acute <Iona Justice LUDWIN FordC - Last Filed: 08/26/20 15:35> Assessment and Plan: Acute respiratory failure secondary to COVID pneumonia. - CTA negative for pulmonary embolism but showed extensive bilateral ground-glass opacities. - CXR today (08/26) shows worsened diffuse lung disease consistent with pneumonia v pulmonary edema v ARDS. - Now on pressure control ventilation and paralytics with improvement in saturations. - Dexamethasone re-initiated due to tenuous respiratory status. Continue albuterol. - Echo on 08/23/2020 showed ejection fraction of 70%, LVH, and normal diastolic function. - Appears euvolemic at this time, Lasix p.r.n. based on fluid status. <Iona FrancaEzequiel Ford PA-C - Last Filed: 08/26/20 15:35> (3) Pneumonia due to COVID-19 virus: Code(s): U07.1 - COVID-19; J12.89 - Other viral pneumonia <Iona FrancaEzequiel Ford PA-C - Last Filed: 08/26/20 15:35> Status: Acute <Iona FrancaEzequiel Ford PA-C - Last Filed: 08/26/20 15:35> Assessment and Plan: - SARS-CoV-2 2 PCR 08/12/2020. - Dexamethasone, 10 day course completed 08/21; re-initiated for due to tenuous respiratory status. - Remdesivir, 5 day course completed on 08/17. - Received 1 unit of convalescent plasma 08/14. - Continue airborne, droplet, and contact isolation. <Iona Ford PA-C - Last Filed: 08/26/20 15:35> (4) Hypertension: Qualifiers: Hypertension type: essential hypertension Qualified Code(s): I10 - Essential (primary) hypertension <Iona Ford PA-C - Last Filed: 08/26/20 15:35> Code(s): I10 - Essential (primary) hypertension <Iona Ford PA-C - Last Filed: 08/26/20 15:35> Status: Acute <Iona Ford PA-C - Last Filed: 08/26/20 15:35> Assessment and Plan: - Blood pressures were reviewed today (08/26) and he has been hypotensive as above. - Levophed initiated 08/26/2020 with goal MAP of greater than 65. <Iona Ford PA-C - Last Filed: 08/26/20 15:35> (5) Hyperglycemia: Code(s): R73.9 - Hyperglycemia, unspecified <Iona Ford PA-C - Last Filed: 08/26/20 15:35> Status: Resolved <Iona Ford PA-C - Last Filed: 08/26/20 15:35> Assessment and Plan: - Resolved, daily a.m. glucose has been well within normal limits. <Iona Ford PA-C - Last Filed: 08/26/20 15:35> (6) Anemia: Code(s): D64.9 - Anemia, unspecified <Iona Ford PA-C - Last Filed: 08/26/20 15:35> Status: Acute <Iona Ford PA-C - Last Filed: 08/26/20 15:35> Assessment and Plan: Mild normocytic anemia likely due to acute illness. Hemoglobin creeping down, will continue to monitor closely. <Iona Ford PA-C - Last Filed: 08/26/20 15:35> Additional Plan I have seen and evaluated the patient and discussed the care with ALLI Guardado. I agree with the findings and plan as documented the note above <Estelle Tyler MD - Last Filed: 10/07/20 14:29> Subjective Date/time seen: 08/26/20 11:30 <Iona Ford PA-C - Last Filed: 08/26/20 15:35> Interval history: A 50-year-old male wit
--- NOTE | 2020-08-26 11:35 | PC.NURSE ---
Notified Dr. Tyler of pt's BP still on the low side. 75/48. New order to start Levophed.
[2020-08-26] MEDS: NOREPINEPHRINE 8 MG/D5W 250 ML 8 MG/250 ML BAG 9.38 MG IV CONT (12:26)
--- NOTE | 2020-08-26 14:31 | PM.IMPN ---
Progress Note: A&P Assessment and Plan (1) Pneumonia due to COVID-19 virus: Code(s): U07.1 - COVID-19; J12.89 - Other viral pneumonia Status: Acute Assessment and Plan: Positive covid .. CTA performed due to increased oxygen demands/increased dyspnea; no PE identified, findings consistent with COVID pneumonia noted. Inflammatory markers elevated. Remdesivir initiated 08/13. . transferred to ICU 08/14 pm , Intubated and mech vent 08/25 Dexamethasone initiated on 08/12, .and finished 10 day course Remdesivir initiated on 08/13; will finished 08/17 convalescent plasma given 08/14 Continue supportive care of Tylenol PRN for fevers, Mucinex prn for cough, zinc, vitamin c and d Wean O2 as tolerated, prn prone position,. (2) Acute respiratory failure due to COVID-19: Code(s): U07.1 - COVID-19; J96.00 - Acute respiratory failure, unspecified whether with hypoxia or hypercapnia Status: Acute Assessment and Plan: ARF with hypoxia due to COVID19. Intubated 08/25 now at 100% FIO2 with 12 peep See above a/p (3) Hypertension: Qualifiers: Hypertension type: essential hypertension Qualified Code(s): I10 - Essential (primary) hypertension Code(s): I10 - Essential (primary) hypertension Status: Acute Assessment and Plan: BP 100s sys this morning fluid bolau last pm for hypotension losartan on hold Monitor (4) Hyperglycemia: Code(s): R73.9 - Hyperglycemia, unspecified Status: Resolved Assessment and Plan: Patient serum fasting glucose has been elevated with dexamethasone. Patient denies diagnosis of diabetes A1c only 4.7 Monitor, ss as needed (5) DVT prophylaxis: Code(s): Z29.9 - Encounter for prophylactic measures, unspecified Status: Acute Assessment and Plan: for b.i.d. Estebanx with his body habitus and diagnosis of COVID Subjective Date/time seen: 08/26/20 14:31 Interval history: Date of visit 08/26. Patient is a 50 yo M with history of HTN and obesity who is seen in follow up for COVID 19 infection/PNA and acute respiratory failure with hypoxia . Intubated 08/15 Exam Narrative: Exam Narrative: blood pressure 126/76 pulse 60 sat 90% on Vent FIO2 100% 12 peep General: , respiratory rate increased but even. HEENT: , EOMI, Cardiovascular: Rate and rhythm are regular. No murmur, rub, or gallop. Respiratory: coarse BS noted diffusely. crackles in the bases. . Abdomen: Soft, non-tender, non-distended, bowel sounds present. Skin: Warm and slightly diaphoretic to touch Extremities: Peripheral pulses intact. No edema. Neuro: Now sedated Objective Data Vital Signs Vital Signs: Vital Signs - 24 hr 08/25/20 15:12 08/25/20 15:26 08/25/20 15:27 Temperature Pulse Rate 44 L 44 L 44 L Respiratory Rate 34 H 34 H 34 H Blood Pressure 86/57 L Pulse Oximetry 08/25/20 16:00 08/25/20 16:02 08/25/20 16:05 Temperature 36.6 C Pulse Rate 44 L 44 L 44 L Respiratory Rate 34 H 34 H 34 H Blood Pressure 88/59 L Pulse Oximetry 97 08/25/20 16:06 08/25/20 17:08 08/25/20 17:24 Temperature Pulse Rate 44 L 56 L 46 L Respiratory Rate 34 H 34 H Blood Pressure 88/59 L Pulse Oximetry 90 08/25/20 17:25 08/25/20 17:26 08/25/20 18:00 Temperature Pulse Rate 46 L 46 L 45 L Respiratory Rate 34 H 34 H 34 H Blood Pressure 85/59 L 86/60 L Pulse Oximetry 97 08/25/20 18:22 08/25/20 18:23 08/25/20 20:00 Temperature 36.0 C L Pulse Rate 46 L 45 L 47 L Respiratory Rate 34 H 34 H 34 H Blood Pressure 86/60 L 87/62 L Pulse Oximetry 97 08/25/20 20:26 08/25/20 21:44 08/25/20 22:00 Temperature Pulse Rate 45 L 52 L 54 L Respiratory Rate 34 H 34 H 34 H Blood Pressure 92/64 L Pulse Oximetry 90 91 08/25/20 23:25 08/25/20 2
[2020-08-27] VITALS (52 sets, daily range): BP systolic 79–130; BP diastolic 46–80; PULSE 57–113; RESP 22–36; TEMP 36.3–37.2; O2SAT 90–99
[2020-08-27] MEDS: ALBUTEROL SULFATE NEB 2.5 MG/0.5 ML INH 5 MG INHALATION ×4 (02:33→20:11)
[2020-08-27 02:52] LABS: Alveolar/Arterial O2 Gradient 278.6 mmHg; Carboxyhemoglobin 0.3 % THb (0-2.0); Fractional Inspired Oxygen 58 %; Methemoglobin ABG 0.3 %THb (0-1.5); Oxygen Content ABG 16.6 %vol (16.0-22.0); Oxygen Saturation ABG 97.9 % (95.0-100.0); Oxyhemoglobin 96.6 % THb (90.0-100.0); PCO2 ABG 34.8 mmHg (35.0-45.0); PO2 ABG 96.5 mmHg (80.0-100.0); PO2 FiO2 Ratio Arterial Blood 1.66 %; Reduced Hemoglobin 2.8 %THb (0-5.0); Total Hemoglobin 12.1 g/dL (12.0-18.0); pH ABG 7.507 (7.350-7.450)
[2020-08-27 02:53] LABS: Device VENTILATOR; Modified Allen's Test Unable to perform; Site Drawn RIGHT RADIAL
[2020-08-27 02:54] LABS: Arterial Blood Gas PEEP 12 cmH2O; Arterial Blood Gas Vent Mode PRESSURE CONTROL; Arterial Blood Gas Ventilator rate 36 /MIN; Peak Inspiratory Pressure 28 cmH2O
[2020-08-27] MEDS: SODIUM CHLORIDE 0.9% IV 1,000 ML 75 ML IV CONT (03:50)
[2020-08-27 04:43] LABS: Hemoglobin 9.5 g/dL (14.0-18.0); Mean Corpuscular HGB Conc 33.9 g/dl (32-36); Mean Corpuscular Volume 88.3 fl (80-100); Mean Platelet Volume 9.2 fl (7.4-10.4); Platelet Count Result 208 k/mm3 (150-375); Red Blood Count 3.17 M/mm3 (4.6-6.20); White Blood Count 15.1 K/mm3 (4.5-10.0)
[2020-08-27 04:55] LABS: D Dimer 1.59 ug/mL (<0.48)
[2020-08-27 05:11] LABS: Alanine Aminotransferase 27 U/L (4-50); Albumin Level 2.6 g/dL (3.5-5.1); Alkaline Phosphatase 71 U/L (38-126); Anion Gap 2 mmol/L (8-16); Aspartate Amino Transferase 27 U/L (17-59); Bilirubin,Total 0.8 mg/dL (0.2-1.3); Blood Urea Nitrogen 22 mg/dL (9-20); CRP 4.6 mg/dL (<1.0); Calcium 7.7 mg/dL (8.4-10.2); Carbon Dioxide 32 mmol/L (22-30); Chloride 99 mmol/L (98-107); Estimated CRCL calculation 89 ml/min; Estimated Glomerular Filt Rate > 60; Glucose 119 mg/dL (75-110); Lactate Dehydrogenase 574 U/L (313-618); Magnesium 2.3 mg/dL (1.6-2.3); Phosphorus 2.4 mg/dL (2.5-4.5); Potassium 3.7 mmol/L (3.4-5.0); Sodium 133 mmol/L (137-145)
[2020-08-27] MEDS: CENTRAL LINE FLUSH 10 ML IV PUSH ×2 (06:48→13:19)
[2020-08-27 08:17] LABS: Alveolar/Arterial O2 Gradient 469.6 mmHg; Base Excess ABG 0.2 mEq/l (+/-2.0); Carboxyhemoglobin 0.1 % THb (0-2.0); Fractional Inspired Oxygen 85 %; HCO3 ABG 23.6 mEq/l (22.0-26.0); Methemoglobin ABG 0.1 %THb (0-1.5); Oxygen Content ABG 15.2 %vol (16.0-22.0); Oxyhemoglobin 97.1 % THb (90.0-100.0); PCO2 ABG 33.5 mmHg (35.0-45.0); PO2 ABG 101.7 mmHg (80.0-100.0); Reduced Hemoglobin 2.7 %THb (0-5.0); pH ABG 7.465 (7.350-7.450)
[2020-08-27 08:18] LABS: Device VENTILATOR; Site Drawn LEFT BRACHIAL
[2020-08-27 08:20] LABS: Arterial Blood Gas PEEP 12 cmH2O; Arterial Blood Gas Vent Mode PRESSURE CONTROL; Arterial Blood Gas Ventilator rate 25 /MIN; Peak Inspiratory Pressure 28 cmH2O
[2020-08-27] MEDS: FAMOTIDINE 20 MG/2 ML VIAL IV PUSH (09:10)
[2020-08-27] MEDS: ENOXAPARIN 40 MG/0.4 ML SYRINGE SUB-Q (09:10)
[2020-08-27] MEDS: ASCORBIC ACID 500 MG TABLET FEED TUBE (09:10)
[2020-08-27] MEDS: DEXAMETHASONE SOD PHOS INJ 4 MG/ML VIAL 6 MG IV PUSH (09:10)
[2020-08-27] MEDS: CHOLECALCIFEROL 1,000 UNITS TABLET 1000 UNITS FEED TUBE (09:10)
[2020-08-27] MEDS: ZINC SULFATE 220 MG CAPSULE FEED TUBE (09:10)
[2020-08-27] MEDS: CALCIUM CHLOR 1,000MG/100ML NS 1,000 MG/100 ML BAG 100 MG IVPB (09:34)
[2020-08-27] MEDS: POTASSIUM CHLORIDE 20 MEQ PACKET (FOR LIQUID) 40 MEQ PO (09:34)
--- NOTE | 2020-08-27 11:25 | WPDINTPN ---
Progress Note: A&P Assessment and Plan (1) Acute respiratory failure due to COVID-19: Code(s): U07.1 - COVID-19; J96.00 - Acute respiratory failure, unspecified whether with hypoxia or hypercapnia Status: Acute Assessment and Plan: Acute Respiratory failure secondary to COVID-19 pneumonia - CTA negative for PE. It did show bilateral extensive ground-glass opacities - intubated on 08/25/2020 - chest x-ray today shows pneumomediastinum and persistent diffuse bilateral infiltrates - decrease pressure controlled 24, decrease PEEP to 10 to minimize barotrauma - continue albuterol - appears euvolemic at this time. Lasix on p.r.n. basis based on his fluid status. - daily chest x-ray (2) Pneumomediastinum: Code(s): J98.2 - Interstitial emphysema Status: Acute Assessment and Plan: pneumomediastinum from barotrauma from mechanical ventilation no significant change in hemodynamics this morning no pneumothorax on chest x-ray decrease pressure control and PEEP transfer patient for ECMO once bed is available (3) Pneumonia due to COVID-19 virus: Code(s): U07.1 - COVID-19; J12.89 - Other viral pneumonia Status: Acute Assessment and Plan: - SARS-CoV-2 PCR positive 08/12 - Dexamethasone initiated on 08/12 and has completed a 10 day course but will continue at this time. - Remdesivir completed on 08/17 - Received 1 unit of convalescent plasma 08/14 - Patient is in Airborne, Droplet and Contact Isolation - inflammatory markers are worsening, continue to monitor - continue vitamin-D, vitamin-C and zinc (4) Hypertension: Qualifiers: Hypertension type: essential hypertension Qualified Code(s): I10 - Essential (primary) hypertension Code(s): I10 - Essential (primary) hypertension Status: Acute Assessment and Plan: Blood pressure is in normal range will treat p.r.n. His home medication losartan has been on hold. echocardiogram done on 08/23/2020 showed EF of 70%, LVH, LV diastolic function is normal, no significant valvular abnormalities (5) Hyperglycemia: Code(s): R73.9 - Hyperglycemia, unspecified Status: Resolved Assessment and Plan: much improvement sliding-scale insulin and Accu-Cheks Additional Plan replace low potassium and calcium Diet: continue and will advance tube feeds SUP- Pepcid DVT prophylaxis: Lovenox 40 mg b.i.d. for COVID-19 Code status: Full code I spoke to Dr. June at [facility] regarding transferring patient to the hospital for VV ECMO concerning patient with ARDS, COVID-19 pneumonia, and now developing pneumomediastinum suggestive of barotrauma. He has accepted the patient but does not have a bed available at this time. Patient will be transferred once the bed is available at [facility] Total Critical Care Time - 35 minutes Due to a high probability of clinically significant, life threatening deterioration, the patient required my highest level of preparedness to intervene emergently and I personally spent this critical care time directly and personally managing the patient. This critical care time included obtaining a history; examining the patient; pulse oximetry; ordering and review of studies; arranging urgent treatment with development of a management plan; evaluation of patient's response to treatment; frequent reassessment; and discussions with other providers. It was exclusive of separately billable procedures and treating other patients and teaching time. Please see Assessment and Plan section and the rest of the note for further information on patient assessment and treatment Subjective Date/time seen: 08/27/20 0710 Overnight events reviewed. Afebrile Continues to be on mechanical ventilation Continues to be Sedation and paralytic Vitals acceptable Review of Systems Review of Systems: ROS unobtainable: Yes unobtainable due to endotracheal tube Exam Narrative: Exam
--- NOTE | 2020-08-27 13:38 | PCDIET ---
ICU Rounding Note: Patient has been tolerating Vital 1.2 at 20mL/hr via NG tube. MD order to gradually increase toward goal of 40mL/hr today. Pneumomediastinum noted with plan for transfer to outside hospital for ECMO. Last recorded weight is 84.3kg which is increased from last review. +I/O. Bowel Motility: Last documented BM on 08/25/20. Labs Reviewed: Hgb (9.5), Hct (28.0), Glu (119), Na (133), Ca (7.7) Meds Noted: Calcium Chloride, KCl, Albuterol, Vitamin C, Nimbex, Decadron, Pepcid, Fentanyl, Versed, Levophed, Vitamin D, Zinc Sulfate Additional Notes: Nose abrasion documented. Following daily in ICU rounds. Assessing/reassessing every Tuesday/Tuesday.
--- NOTE | 2020-08-27 14:31 | PM.IMPN ---
Progress Note: A&P Assessment and Plan (1) Pneumonia due to COVID-19 virus: Code(s): U07.1 - COVID-19; J12.89 - Other viral pneumonia Status: Acute Assessment and Plan: Positive covid .. CTA performed due to increased oxygen demands/increased dyspnea; no PE identified, findings consistent with COVID pneumonia noted. Inflammatory markers elevated. Remdesivir initiated 08/13. . transferred to ICU 08/14 pm , Intubated and mech vent 08/25 Dexamethasone initiated on 08/12, .and finished 10 day course Remdesivir initiated on 08/13; will finished 08/17 convalescent plasma given 08/14 Continue supportive care of Tylenol PRN for fevers, Mucinex prn for cough, Wean O2 as tolerated, prn prone position,. (2) Acute respiratory failure due to COVID-19: Code(s): U07.1 - COVID-19; J96.00 - Acute respiratory failure, unspecified whether with hypoxia or hypercapnia Status: Acute Assessment and Plan: ARF with hypoxia due to COVID19. Intubated 08/25 now at 100% FIO2 with 12 peep See above a/p (3) Hypertension: Qualifiers: Hypertension type: essential hypertension Qualified Code(s): I10 - Essential (primary) hypertension Code(s): I10 - Essential (primary) hypertension Status: Acute Assessment and Plan: BP 100s sys this morning fluid bolau last pm for hypotension losartan on hold Monitor (4) Hyperglycemia: Code(s): R73.9 - Hyperglycemia, unspecified Status: Resolved Assessment and Plan: Patient serum fasting glucose has been elevated with dexamethasone. Patient denies diagnosis of diabetes A1c only 4.7 Monitor, ss as needed (5) DVT prophylaxis: Code(s): Z29.9 - Encounter for prophylactic measures, unspecified Status: Acute Assessment and Plan: for b.i.d. Lovenox with his body habitus and diagnosis of COVID (6) Pneumomediastinum: Code(s): J98.2 - Interstitial emphysema Status: Acute Assessment and Plan: Thought secondary to barotrauma. [facility] has been contacted and they will accept patient when bed is available in transfer will probably need ECMO Subjective Date/time seen: 08/27/20 14:31 Interval history: Date of visit 08/27. Patient is a 50 yo M with history of HTN and obesity who is seen in follow up for COVID 19 infection/PNA and acute respiratory failure with hypoxia . Intubated 08/15 Exam Narrative: Exam Narrative: blood pressure 104/62 pulse 76 sat 95 % on Vent FIO2 85% 10 peep General: , respiratory rate increased but even. HEENT: , EOMI, Cardiovascular: Rate and rhythm are regular. No murmur, rub, or gallop. Respiratory: coarse BS noted diffusely. crackles in the bases. . Abdomen: Soft, non-tender, non-distended, bowel sounds present. Skin: Warm and slightly diaphoretic to touch Extremities: Peripheral pulses intact. No edema. Neuro: Now sedated Objective Data Vital Signs Vital Signs: Vital Signs - 24 hr 08/26/20 14:32 08/26/20 15:14 08/26/20 15:15 Temperature Pulse Rate 58 L 54 L 56 L Respiratory Rate 36 H 36 H Blood Pressure 130/77 130/77 Pulse Oximetry 08/26/20 16:00 08/26/20 16:36 08/26/20 16:37 Temperature 36.8 C Pulse Rate 55 L 55 L 53 L Respiratory Rate 36 H 36 H 36 H Blood Pressure 120/76 123/79 Pulse Oximetry 99 08/26/20 16:43 08/26/20 18:02 08/26/20 18:03 Temperature Pulse Rate 54 L 54 L 56 L Respiratory Rate 36 H 36 H Blood Pressure Pulse Oximetry 99 08/26/20 18:04 08/26/20 18:07 08/26/20 18:10 Temperature Pulse Rate 54 L 55 L 54 L Respiratory Rate 36 H 36 H Blood Pressure 115/74 115/74 115/74 Pulse Oximetry 99 08/26/20 19:28 08/26/20 19:47 08/26/20 20:00 Temperature 36.8 C Pulse Rate 59 L 60 67 Respiratory Rate 36 H 40 H 36 H Blood Pressur
[2020-08-27] MEDS: FENTANYL 2,500MCG/NS250ML(*CRX 2,500 MCG/250 ML BAG 15 MCG IV CONT (15:38)
--- NOTE | 2020-08-27 18:02 | PM.TDS ---
Transfer Discharge Sum: Prov Provider Date of admission: 08/13/20 15:34 Primary care physician: Santi Mendez MD Admitting clinician: Mimi Ge MD Consults: 08/15/20 Consult to Physician Routine Comment: Consulting Provider: Skyler Rolle Reason for consultation: increasing oxygen demands Has provider been notified: Yes DS: Admitting Diagnosis Admitting Diagnosis Admitting Diagnosis: Suspected COVID 19 DS: Discharge Diagnosis Discharge Diagnosis (1) Pneumonia due to COVID-19 virus: Code(s): U07.1 - COVID-19; J12.89 - Other viral pneumonia Status: Acute Assessment and Plan: Positive covid .. CTA performed due to increased oxygen demands/increased dyspnea; no PE identified, findings consistent with COVID pneumonia noted. Inflammatory markers elevated. Remdesivir initiated 08/13. . transferred to ICU 08/14 pm , Intubated and mech vent 08/25 Dexamethasone initiated on 08/12, .and finished 10 day course Remdesivir initiated on 08/13; will finished 08/17 convalescent plasma given 08/14 Continue supportive care of Tylenol PRN for fevers, Mucinex prn for cough, Pneumo mediastinum on chest x-ray today. Thought secondary to barotrauma. [facility] was contacted and accepted the patient in transfer for continued treatment . (2) Acute respiratory failure due to COVID-19: Code(s): U07.1 - COVID-19; J96.00 - Acute respiratory failure, unspecified whether with hypoxia or hypercapnia Status: Acute Assessment and Plan: ARF with hypoxia due to COVID19. Intubated 08/25 now at 85% FIO2 with 10 peep See above a/p Transfer [place] today with the pneumo mediastinum (3) Hypertension: Qualifiers: Hypertension type: essential hypertension Qualified Code(s): I10 - Essential (primary) hypertension Code(s): I10 - Essential (primary) hypertension Status: Acute Assessment and Plan: BP 100s sys this morning fluid bolau last pm for hypotension losartan on hold Monitor (4) Hyperglycemia: Code(s): R73.9 - Hyperglycemia, unspecified Status: Resolved Assessment and Plan: Patient serum fasting glucose has been elevated with dexamethasone. Patient denies diagnosis of diabetes A1c only 4.7 Monitor, ss as needed (5) DVT prophylaxis: Code(s): Z29.9 - Encounter for prophylactic measures, unspecified Status: Acute Assessment and Plan: for b.i.d. Lovenox with his body habitus and diagnosis of COVID (6) Pneumomediastinum: Code(s): J98.2 - Interstitial emphysema Status: Acute Assessment and Plan: Thought secondary to barotrauma. [place] [facility] has been contacted and they have accepted the patient in transfer, will probably need ECMO Transfer Discharge Sum: Med Medications Active and Home Medications: Home Medications losartan 100 mg PO DAILY 08/12/20 [History Confirmed 08/12/20] Active Medications Acetaminophen (Acetaminophen 325 Mg Tablet) 650 mg PO Q4H PRN PRN Reason: Mild Pain (1-3) or Fever Last Admin: 08/24/20 20:50 Dose: 650 mg Documented by: Albuterol (Albuterol Sulfate Neb 2.5 Mg/0.5 Ml Inh) 5 mg INHALATION Q6HRT PENDING SALE TO [facility] Last Admin: 08/27/20 14:20 Dose: 5 mg Documented by: Artificial Tears (Artificial Tears Op Soln 15 Ml Bottle) 1 drop EACH EYE QID PRN PRN Reason: Dry Eye(s) Last Admin: 08/21/20 07:32 Dose: 1 drop Documented by: Ascorbic Acid (Ascorbic Acid 500 Mg Tablet) 500 mg FEED TUBE DAILY PENDING SALE TO [facility] Last Admin: 08/27/20 09:10 Dose: 500 mg Documented by: Dexamethasone Sodium Phosphate (Dexamethasone Sod Phos Inj 4 Mg/Ml Vial) 6 mg IV PUSH DAILY PENDING SALE TO [facility] Stop: 09/01/20 09:01 Last Admin: 08/27/20 09:10 Dose: 6 mg Documented by: Dextrose (Dextrose 50% 25 Gm/50 Ml Syringe) 12.5 gm IV PUSH PRN PRN; Protocol PRN R
--- NOTE | 2020-08-27 18:19 | PC.NURSE ---
Report called to GLADYS Romero @ [facility] @ [phone]. Ambulance called and awaiting transport
--- NOTE | 2020-08-27 22:05 | PC.NURSE ---
Patient transported via ambulance to [facility], RN went with patient due to patient being on ventilator and nimbex drip. Patient arrived at [facility] room 8205 at 2255 and report given to clinical staff pharmacist at bedside.
== END 2020-08-27 22:00 | disposition short-term general hospital (02) | DRG 208 ==
LOC: ANHED 17:27 → ANH3MEDSUR 08-13 06:44 → ANHICU 08-14 16:35
PROVIDERS: Family Medicine; Internal Medicine; Internal Medicine Critical Care Medicine; Physician Assistant; Student in an Organized Health Care Education/Training Program; Admitting Provider Family Medicine; Emergency Provider Emergency Medicine; PCP Emergency Medicine; Visit Provider Internal Medicine
DX: U07.1 COVID-19 (principal); J12.89 Other viral pneumonia; J80 Acute respiratory distress syndrome; R57.9 Shock, unspecified; I10 Essential (primary) hypertension; E66.9 Obesity, unspecified; Z68.30 Body mass index [BMI] 30.0-30.9, adult; Z56.0 Unemployment, unspecified; Z87.891 Personal history of nicotine dependence; R73.9 Hyperglycemia, unspecified; D64.9 Anemia, unspecified; J98.2 Interstitial emphysema; E87.6 Hypokalemia; E83.51 Hypocalcemia; T70.29XA Other effects of high altitude, initial encounter; X58.XXXA Exposure to other specified factors, initial encounter; Y92.9 Unspecified place or not applicable
CPT/HCPCS: 31500; 36415; 36430; 36569; 36600; 71045; 71275; 80048; 80053; 80076; 82375; 82728; 82805; 83036; 83050; 83605; 83615; 83735; 83880; 84100; 84145; 84460; 85025; 85027; 85380; 86140; 86900; 86901; 87040; 87086; 87635; 87804; 93005; 93306; 94002; 94003; 94640; 96372; 96374; 96375; 97161; 99285; A9270; C1751; C9803; G0378; G0379; J1100; J1650; J1815; J1885; J1940; J2250; J3010; J7030; J7040; J7050; J7060; J7120; J8540; P9059; Q9967; U0003

== ENCOUNTER 2021-04-10 09:30 | Outpatient (RCR) | payer BC, SELFPAY ==
[2020-12-12 08:36] VITALS: BP 150/90; PULSE 86; RESP 16; TEMP 36.6; O2SAT 97
[2020-12-12 08:42] VITALS: PULSE 86
--- NOTE | 2021-01-02 09:47 | PCCPR ---
ABSENT TODAY, GIULIA HAD MD APPOINTMENT AND UNABLE TO MAKE IT TO REHAB.
--- NOTE | 2021-01-20 08:36 | PCCPR ---
Pt [facility] rehab today, he is out of town until tonight.
== END 2021-04-10 23:59 | disposition home or self-care (01) ==
LOC: ANHCPREHAB 09:30
PROVIDERS: PCP Emergency Medicine
DX: J44.9 Chronic obstructive pulmonary disease, unspecified (principal)
CPT/HCPCS: 97150; G0424

== ENCOUNTER 2021-05-13 08:35 | Outpatient (CLI) | payer BC, SELFPAY ==
--- NOTE | 2021-05-13 12:19 | WPDSIXMINUTE ---
Six Minute Walk Procedure Procedure Performed Pulmonary Stress Test (6 min walk) Six Minute Walk This is a 6 minutes walk test. The test was performed and interpreted in accordance with the 2014 ERS/ATS task force guidelines. Findings: The patient's resting room air oxygen saturation measured by pulse oximetry was 98% and her heart rate was 68 bpm. Patient ambulated for 366 meters and oxygen saturation remained 90 to 99%. Heart rate at the end of the study was 99 bpm. The patient did not qualify for supplemental oxygen at rest or with ambulation. There are no prior studies for comparison.
== END 2021-05-13 08:36 | disposition home or self-care (01) ==
PROVIDERS: PCP Emergency Medicine
DX: J44.9 Chronic obstructive pulmonary disease, unspecified (principal)
CPT/HCPCS: 94618

== ENCOUNTER 2024-01-30 10:13 | Outpatient (CLI) | payer BC, SELFPAY ==
--- NOTE | ~2024-01-30 | US_ITS ---
EXAMINATION: US soft tissue head and neck DATE: 01/30/2024 10:32 INDICATION: Right posterior neck mass. TECHNIQUE: Multiple grayscale and Doppler ultrasound images of the head and neck were obtained. COMPARISON: None FINDINGS: In the posterior right neck, there is a 2.2 x 1.5 x 2.5 cm hypoechoic mass. IMPRESSION: 1. 2.5 cm mass in posterior right neck, which may be benign or less likely malignant. Ultrasound-guid ed core needle biopsy is recommended. Reviewed, dictated and finalized at location E. IMPRESSION: 1. 2.5 cm mass in posterior right neck, which may be benign or less likely giselle gnant. Ultrasound-guided core needle biopsy is recommended.
== END 2024-01-30 10:14 ==
LOC: MICIMG 10:16
PROVIDERS: PCP Emergency Medicine; Visit Provider Emergency Medicine
DX: R22.9 Localized swelling, mass and lump, unspecified (principal)
CPT/HCPCS: 76536